=== PATIENT | female | born 1930 | race Caucasian/White ===

== ENCOUNTER 2017-02-13 20:22 | Inpatient (IN) | payer MEDICARE ==
[~2017-02-13] VITALS: Ht 152.4 cm; Wt 46.4 kg
[~2017-02-13 20:22] MED LIST: ACET650T50 PO; ALBU8.5H4 IH; ASPI-973 PO; CARB1TAB37 PO; Cyanocobalamin PO; LORA0.5T PO; MOME17SP NS; PRAM0.252 PO; SERT25TA2 PO; [UNRECOGNIZED DRUG - CODE] PO
[2017-02-13 20:31] VITALS: BP 167/63; PULSE 73; RESP 34; O2SAT 100
--- NOTE | 2017-02-13 20:38 | ED.REPORT ---
HPI-Syncope Date of Service Feb 13, 2017 ED Provider: Jose Obrien MD Pt is an 87 y.o. female with a hx of Parkinson's, PE, and possible TIA who presents to the ED via EMS after a near syncopal episode prior to arrival. Upon arrival to the ED pt states that her SOB is worse than normal. She states that she has had SOB for 3 years and has has "felt bad for years", however she states that her SOB is markedly worse tonight.. Per EMS pt was administered 0.5mg Atropine en route her heart rate in the 40s, which subsequently responded. Pt is an extremely poor historian and provides only a vague history - I cannot get her to pin down on any turgor details regarding this near syncopal event, she appears quite dyspneic but even timing or dyspnea is difficulte Nursing Notes Stated Complaint: SYNCOPE EPISODE Chief Complaint: Respiratory Complaints Nursing Notes Reviewed: Yes (Moovly, YouMail not reconciled) Allergies: Coded Allergies: No Known Drug Allergies (Verified Allergy, Unknown, 06/11/16) Uncoded Allergies: MEDICAL DYE (Adverse Reaction, Severe, Dizziness, 05/12/14) States allergic to "medical dye" but denies allergy to iodine Scheduled ([Cyanocobalamin]) 500 MCG TABLET 1,000 MCG PO DAILY Aspirin (Aspirin) 81 Mg Tablet.dr 81 MG PO DAILY Carbidopa/Levodopa 10-100 mg (Carbidopa/Levodopa 10-100 mg) 1 Ea Tab 2 EA PO TID Carbidopa/Levodopa ER 50-200 mg (Carbidopa/Levodopa ER 50-200 mg) 1 Each Tablet.er 1 EACH PO HS Lorazepam (Lorazepam) 0.5 Mg Tablet 0.25 MG PO HS Mometasone Furoate (Nasonex) 17 Gm [place].pump 1 SPRAY NS DAILY Pramipexole Dihydrochloride (Mirapex) 0.25 Mg Tablet 0.25 MG PO HS Sertraline HCl (Zoloft) 25 Mg Tablet 25 MG PO DAILY Scheduled PRN Acetaminophen (Acetaminophen) 650 Mg Tablet.er 650 MG PO Q4 PRN PRN For Pain Albuterol HFA (Albuterol HFA) 8.5 Gm Hfa.aer.ad 1 PUFF IH Q4 PRN PRN shortness of breath General Time Seen by Provider: 20:28 Chief Complaint Almost passed out Syncope Description: Single episode Hx Obtained From: Patient, EMS Unable to Obtain Hx: Patient condition Arrived By: Ambulance Onset Occurred: Just prior to arrival Past Medical History Past Medical History Notes: PCP: Dr. Villa Last admitted October 2014 Past Medical History 1. Parkinson's disease 2. Hx of BL Pulmonary Embolism 2008, showing elective surgery-no longer on warfarin 3. Anxiety 4. Hx of generalized weakness 5. Orthostatic hypotension 3 possible TIA in March 2014 Reports: Transient ischemic attack Past Surgical History Hiatal Hernia Repair 2008 Cataract surgery Family History Noncontributory Smoking History Former Smoker Social History Alcohol Use: Denies alcohol use Drug Use: Denies drug use Other Social History: Lives alone, Local resident Ambulatory Status Independent Review of Systems Unable to Obtain ROS Patient condition Constitutional: Reports: Chills, Fever Respiratory: Reports: Shortness of breath Neurologic: Reports: Syncope (Near) Complete sys rev & neg: except as marked. Physical Exam Initial Vital Signs Vital Signs (First) Date Time Temp Pulse Resp B/P Pulse Ox O2 Delivery O2 Flow Rate FiO2 02/13/17 20:31 36.4 73 34 167/63 100 Nasal Cannula 2 Initial VS: Reviewed, Unavailable (no vitals on chart) Head / Eyes: Atraumatic, Normocephalic, PERRL Upper Extremities: Vascular intact, Neuro intact Skin: Warm, Dry, No cyanosis Psychiatric: Mood/affect normal, Behavior normal, Normal thought content General/Constitutional: Awake, Alert, Well hydrated, Not toxic appearing Appearance / Presentation: Positive: Cachectic, Frail Pt is extremely poor historian Respiratory / Chest: Atraumatic, Breath sounds NL, Breath sounds = bilat, No respiratory distress Tachypneic Cardiovascular: Heart rate NL, Regular rhythm, Heart sounds NL Heart Rate / Rhythm: Negative: Bradycardia (administered 0.5 Atropin in field) Lower Extremity / Pelvis / MS: Atraumatic, Neurologic intact, Vascular intact Cachetic extremities Neurologic: Speech NL Globally weak Abdomen: Atraumatic, Soft, Non-tender, No distention Interpretation & Diagnostics Lab Results Interpretation Result Diagram: 02/13/17201902/13/172019 Test 02/13/17 20:20 02/13/17 20:55 White Blood Count 5.9th/mm3 (3.8-10.1) Red Blood Count 4.25mil/mm3 (3.90-5.20) Hemoglobin 13.0g/dL (12.0-15.6) Hematocrit 40.9% (35.0-46.0) Mean Corpuscular Volume 96.2fL (81-100) Mean Corpuscular Hemoglobin 30.6pg (27.0-35.0) Mean Corpuscular Hemoglobin Concent 31.8% (32.0-37.0) Red Cell Distribution Width 12.1% (12.3-15.4) Platelet Count 283bil/L (150-400) Neutrophils (%) (Auto) 75.0% (40-74) Lymphocytes (%) (Auto) 13.7% (14-46) Monocytes (%) (Auto) 9.9% (4-12) Eosinophils (%) (Auto) 1.0% (0-5) Basophils (%) (Auto) 0.2% (0-3) Hold Purple Top Tube Received (Received) Prothrombin Time 11.4sec (8.1-12.5) Prothromb Time International Ratio 1.06ratio D-Dimer 2.40mg/L FEU (<0.50) Hold Blue Top Tube Received (Received) Sodium Level 143mEq/L (134-144) Potassium Level 3.4mEq/L (3.5-5.2) Chloride Level 103mEq/L (97-108) Carbon Dioxide Level 26mmol/L (18-29) Blood Urea Nitrogen 17mg/dL (8-27) Creatinine 0.80mg/dL (0.57-1.00) Estimat Glomerular Filtration Rate 98mL/min (>59) Glucose Level 130mg/dL (60-99) Calcium Level 9.6mg/dL (8.5-10.1) Total Bilirubin 0.5mg/dL (0.0-1.2) Aspartate Amino Transf (AST/SGOT) 13U/L (0-50) Alanine Aminotransferase (ALT/SGPT) < 5U/L (0-32) Alkaline Phosphatase 90U/L (25-165) Troponin T < 0.010ug/L (0.0-0.011) Pro-B-Type Natriuretic Peptide 860.0pg/mL (0-738) Total Protein 7.3g/dL (6.4-8.4) Albumin 4.4g/dL (3.4-5.0) Hold [place] Top Tube Received (Received) Lactic Acid Level 1.4mmol/L (0.4-2.0) Lab Results Interpretation: CBC normal CMP normal D-dimer elevated Troponin #1 negative BNP mildly elevated Lactic acid normal ECG Interpretation ECG Interpretation: Received Atropin in field QTC of 507 (QTC of 450 on prior ECG, 06/11/16) Left ventricular hypertorphy, unchanged from prior Time: 20:49 Interpreted by: ED physician Normal ECG Interpretation: Normal rate (80), Normal sinus rhythm ABG Interpretation Exam Performed by: [facility] ABG Findings: Normal blood gas, Oxygen normal, O2 saturation normal, CO2 normal, Bicarbonate normal X-Ray Chest Interpretation Chest Xray Interpretation: IMPRESSION: No acute cardiopulmonary disease process. Dictated by: Lubna Dodd MD, PhD on 02/13/2017 at 21:08 Approved by: Lubna Dodd MD, PhD on 02/13/2017 at 21:08 CT Chest Interpretation IMPRESSION: No evidence for PE Cardiomegaly with prominence of the upper lobe and central pulmonary veins and bilateral pleural effusions. In the proper clinical setting pulmonary venous hypertension should be considered. Radiologist: Alex Watson MD Re-Eval/Medical Decision Med Decision/Clinical Course This is an 87-year-old female presents with some sort of complaint about a near syncopal episode. The patient is an extremely difficult historian and I have a very hard time sorting out what happened. The patient appears visibly tachypnea , visibly dyspneic-and, take matters often answers questions in a timeframe it makes it unclear for the relevant to today's presentation. Apparently she has had some shortness of breath for 3 years, beyond that I cannot tell if the dyspnea and tachypnea that she seems to be experiencing tonight is new and/or different. She cannot tell me anything at all about the syncopal episode, what was going on, whether not she had any other symptoms-making it very difficult. Apparently for EMS she was bradycardic in the 40s and received a dose of atropine, and is now in a sinus rhythm in the 80s. I have not seen a prehospital rhythm strip or EKG. I am told it was sinus. The patient has a med list printed up, he is old from a year or 2 ago-and I cannot get from her whether or not he is current, but I do not see any beta susana agents on it. She was afebrile, but quite tachypneic in the high 20s. She appears short of breath and very fatigued. She is cachectic and medically frail. She apparently does have Parkinson's which is chronic. Lungs however are clear, she is not tachycardic or bradycardic but has a normal heart rate during her ED course. No dysrhythmias were evident during her ED evaluation. Her abdomen soft nontender, there is no JVD, and no leg edema. An EKG demonstrates a normal sinus rhythm, but is notable for mild QTC prolongation and LVH. Chest x-ray is negative for acute disease. A venous blood gas revealed a normal pH, a normal pH and bicarbonate-with no evidence of respiratory failure. Records indicate she has a previous history of the following surgery, and that is no longer on anticoagulation. A d-dimer was obtained and is elevated, so CT angios was performed-but is negative for PE. Her are scattered groundglass densities, as well as prominence of the central upper lobe pulmonary veins with the radiologist concerned about pulmonary venous hypertension as a possible consideration. There trace pleural effusions. At this point I have a difficult patient with an unclear event, with requiring atropine by EMS, who presents tachypneic but with no further dysrhythmias, ever whom definitive pathology has not yet been identified - what may be pulmonary venous hypertension and chronic lung disease, but is not a candidate for safe discharge to home in this setting. She has incidental QT prolongation, but from what I can tell he cannot really make that translate into tonight's presentation. The plan is observation admission for continued monitoring and evaluation. The case is discussed with the hospitalist Source of Hx: Old records Re-Evaluation/Progress : Time of Eval: 23:20 Re-Evaluation/Progress Note: Pt is still complaining of SOB. O2 sat 100% Consultation : Referral / Consult Name: Yohannes Ledesma MD Consulted With: Hospitalist Call Returned at: 22:48 [place]: Will see patient, Agrees with eval, Agrees with plan, Accepts admit Note: Discussed pt condition, accepts admit. Differential Diagnosis: Positive: Dysrhythmia (bradycardia for EMS), Negative: Abdominal aortic aneurysm, Alcohol abuse, Anemia, Electrolyte disorder, Head trauma, Hypoglycemia, Palpitations, Pneumothorax, Prolonged QT syndrome, Pulmonary embolus, Sepsis, Subarachnoid hemorrhage, Vasovagal syncope Counseled Regarding: Diagnosis, Need for admission Discharge & Departure Impression: Primary Impression: Shortness of breath Additional Impressions: Near syncope Bradycardia QT prolongation Disposition: ADMITTED TO HOSPITAL Discharge Condition All VS Reviewed: Yes Condition: No Change Referrals: Domo Villa MD (PCP) Mundo Attestation Portions of this note were transcribed by Katy Seymour. I, Dr. Obrien personally performed the history, physical exam and medical decision-making; I reviewed and confirmed the accuracy of the information in the transcribed note. Signed by: Mundo Viera, 02/13/17 and 4101 copies to: Domo Villa MD, Matthew F MD Feb 13, 2017 20:37 KATY SEYMOUR Feb 13, 2017 20:45
[2017-02-13] MEDS ORDERED: Ipratropium 0.02% 0.5 mg/2.5 mL Inhalation Solution NEB ONE (20:50)
[2017-02-13] MEDS ORDERED: Albuterol 2.5 mg/3 mL Inhalation Solution NEB ONE (20:50)
[2017-02-13 20:57] LABS: BASOPHILS % (AUTO) 0.2 % (0-3); MONOCYTES % (AUTO) 9.9 % (4-12); Mean Corpuscular Hemoglobin 30.6 pg (27.0-35.0); Mean Corpuscular Volume 96.2 fL (81-100); Platelet Count 283 bil/L (150-400)
[2017-02-13 21:02] LABS: D-Dimer 2.4 mg/L FEU (<0.50); INR 1.06 ratio
[2017-02-13 21:04] VITALS: PULSE 61; RESP 26; O2SAT 100
--- NOTE | 2017-02-13 21:10 | DRSVH ---
PROCEDURE: X-RAY CHEST ONE VIEW, PORTABLE ([id number]) INDICATIONS: SOB TECHNIQUE: One view of the chest was acquired. COMPARISON: [facility], CR, XR CHEST 2VW, 06/11/2016, 15:12. FINDINGS: Surgical changes and devices: None. Lungs and pleura: No pleural effusions or pneumothorax. Lungs are clear of acute opacities. Inters titial prominence in the lungs is stable compared to prior examination. Mediastinum: Mediastinal contours appear normal. Heart size is normal. Bones and chest wall: No suspicious bony lesions. Overlying soft tissues appear unremarkable. IMPRESSION: No acute cardiopulmonary disease process. Dictated by: Lubna Dodd MD, PhD on 02/13/2017 at 21:08 Approved by: Lubna Dodd MD, PhD on 02/13/2017 at 21:08
[2017-02-13 21:15] LABS: TROPONIN T < 0.010 ug/L (0.0-0.011)
[2017-02-13] MEDS ORDERED: Heparin 5,000 Unit/mL Inj IVPUSH ONE (21:15)
[2017-02-13] MEDS ORDERED: Heparin 25K Unit/500mL 0.45 NS 25,000 UNIT in IV Premix 1 EACH IV ONE (21:15)
--- NOTE | 2017-02-13 21:19 | ABG ---
DateTimeAnalyzed 21:14:00 -_ pH ____7.431 - pCO2 ___45.4__ -mmHg pO2 ___54.4__ -mmHg HCO3- ___29.6__ -mmol/L ABE ____5.0__ -mmol/L tHb ___13.3__ -g/dL O2Hb ___87.1__ -% COHb ____1.6__ -% MetHb ____0.8__ -% sO2 ___89.2__ -% FIO2 ___28.0__ -% Drawn By JH - Date/Time Notified____ 21:18:00 -_ Notified Whom DR SIXTO - B 752 -mmHg tO2 ___16.3__ -Vol% Josemanuel test N/A -
[2017-02-13] MEDS ORDERED: 0.9% Sodium Chloride 1,000 ML IV SCH (23:09)
[2017-02-13] MEDS ORDERED: Ondansetron 2 mg/mL 2 mL Inj IVPUSH PRN (23:10)
[2017-02-13] MEDS ORDERED: Alum-Mag Hydrox-Simeth 30 mL Suspension PO PRN (23:10)
[2017-02-13 23:43] VITALS: BP 131/64; PULSE 69; RESP 28; O2SAT 100
[2017-02-14] VITALS (11 sets, daily range): BP systolic 134–196; BP diastolic 57–77; PULSE 53–74; RESP 16–26; O2SAT 96–99
[2017-02-14] MEDS: Heparin 5,000 Unit/mL Inj SUBQ SCH ×3 (00:30→17:12)
[2017-02-14] MEDS: LORazepam 0.5 mg Tablet PO SCH ×2 (02:07→21:01)
[2017-02-14 02:44] LABS: APPEARANCE,URINE HAZY (CLEAR,HAZY); COLOR,URINE YELLOW (YELLOW); OCCULT BLOOD,URINE TRACE (NEGATIVE); PH,URINE >1.050 (5.0-8.0); UROBILINOGEN,URINE NORMAL (NORMAL)
--- NOTE | 2017-02-14 02:53 | PCM.HPMED ---
Subjective Date of Service Feb 14, 2017 Primary Provider: Admitting Physician: Yohannes Ledesma MD Primary Care Physician: Domo Villa MD Attending Physician: Yohannes Ledesma MD Admit Status: From the Emergency Department Chief Complaint: Dyspnea, Bradycardia History of Present Illness: Very pleasant 87yo woman with Parkinson's Disease, problems with SOL since a hernia operation 7 years ago, and a fall onto her back 4 days ago presents with increased SOB and weakness. She was found by EMS to be bradycardic in the 30s and 40s and was given Atropine in the field. Her heart rate has improved to 61- 74 and she has weaned off the oxygen she needed initially in the ER, satting 98 % on room air now. She says she has had dry heaves for a week, feels tight at the base of her throat, some mild dysphagia and a slight sore throat. At home she was having some mild chest pressure but that resolved before getting to the ER. Review of Systems: complete ROS is negative except as noted above in the HPI. Allergies Coded Allergies: No Known Drug Allergies (Verified Allergy, Unknown, 02/14/17) Uncoded Allergies: MEDICAL DYE (Adverse Reaction, Severe, Dizziness, "I didn't feel good", ) States allergic to "medical dye" but denies allergy to iodine Home Medications Acetaminophen 650mg PRN Albuterol Inhaler 8.5gm PRN Aspirin 81mg PO daily Carbidopa/Levodopa 10-100mg 2 tabs PO TID Carbidopa/Lebodopa ER 50-200mg PO qhs Lorazepam 0.5mg PO qhs Pramipexole Dihydrochloride 0.25mg PO qhs Sertraline 25mg PO daily Cyanocobalamin 1000mcg PO daily PMH Parkinson's disease, Scarlet Fever Depression Surgical History Hiatal Hernia repair Carpal Tunnel release Lipoma removal from back Family History Father of old age at 85 as far as patient knows Mother of pneumonia at age 76 Social History Hx Alcohol Use: No Hx Substance Use: No Hx Tobacco Use: No Smoking Status: Former Smoker Living Arrangement: Alone Exam Vital Signs Vital Sign - Last Date Time Temp Pulse Resp B/P Pulse Ox O2 Delivery O2 Flow Rate FiO2 02/14/17 00:23 36.6 66 25 147/61 98 Room Air 02/13/17 23:43 2 Exam General: Alert, Oriented X3, Cooperative, mild distress Head: Normocephalic, atraumatic Eyes: PERRLA, EOMI. ENT: Mucous Membranes Moist/[place] Chest & Lungs: Clear to auscultation bilaterally with no crackles, wheezes, or rhonchi. Cardiovascular: Regular Rate/Rhythm, Normal S1, Normal S2, No Murmurs/Rubs/ Gallops Abdomen: Non-tender, Non-distended, No masses, Normoactive bowel tones, Soft Extremities: No cyanosis/clubbing/edema bilaterally. Mild swelling and ecchymosis of the entire left hand Spine: extreme kyphosis of the thoracic spine Neurological: Grossly Neurologically Intact, Cranial Nerves 2-12 Intact, Normal Speech, Strength Normal 4/4 ext, Sensation Intact, Cerebellar Function nl Finger-Nose, Cerebellar Function nl Heel-Rae, Reflexes Normal Lab and Diagnostics Labs Laboratory Tests Test 02/13/17 20:20 02/13/17 20:55 02/14/17 02:19 White Blood Count 5.9th/mm3 (3.8-10.1) Red Blood Count 4.25mil/mm3 (3.90-5.20) Hemoglobin 13.0g/dL (12.0-15.6) Hematocrit 40.9% (35.0-46.0) Mean Corpuscular Volume 96.2fL (81-100) Mean Corpuscular Hemoglobin 30.6pg (27.0-35.0) Mean Corpuscular Hemoglobin Concent 31.8% (32.0-37.0) Red Cell Distribution Width 12.1% (12.3-15.4) Platelet Count 283bil/L (150-400) Neutrophils (%) (Auto) 75.0% (40-74) Lymphocytes (%) (Auto) 13.7% (14-46) Monocytes (%) (Auto) 9.9% (4-12) Eosinophils (%) (Auto) 1.0% (0-5) Basophils (%) (Auto) 0.2% (0-3) Hold Purple Top Tube Received (Received) Prothrombin Time 11.4sec (8.1-12.5) Prothromb Time International Ratio 1.06ratio D-Dimer 2.40mg/L FEU (<0.50) Hold Blue Top Tube Received (Received) Sodium Level 143mEq/L (134-144) Potassium Level 3.4mEq/L (3.5-5.2) Chloride Level 103mEq/L (97-108) Carbon Dioxide Level 26mmol/L (18-29) Blood Urea Nitrogen 17mg/dL (8-27) Creatinine 0.80mg/dL (0.57-1.00) Estimat Glomerular Filtration Rate 98mL/min (>59) Glucose Level 130mg/dL (60-99) Calcium Level 9.6mg/dL (8.5-10.1) Total Bilirubin 0.5mg/dL (0.0-1.2) Aspartate Amino Transf (AST/SGOT) 13U/L (0-50) Alanine Aminotransferase (ALT/SGPT) < 5U/L (0-32) Alkaline Phosphatase 90U/L (25-165) Troponin T < 0.010ug/L (0.0-0.011) Pro-B-Type Natriuretic Peptide 860.0pg/mL (0-738) Total Protein 7.3g/dL (6.4-8.4) Albumin 4.4g/dL (3.4-5.0) Hold [place] Top Tube Received (Received) Lactic Acid Level 1.4mmol/L (0.4-2.0) Urine Color Yellow (YELLOW) Urine Appearance Hazy (CLEAR,HAZY) Urine pH >1.050 (5.0-8.0) Urine Specific [place] N (1.003-1.035) Urine Protein Negativemg/dL (NEG,TRACE) Urine Glucose (UA) Negativemg/dL (NEGATIVE) Urine Ketones 15mg/dL (NEGATIVE) Urine Occult Blood Trace (NEGATIVE) Urine Nitrite Positive (NEGATIVE) Urine Bilirubin Negative (NEGATIVE) Urine Urobilinogen Normalmg/dL (NORMAL) Urine Leukocyte Esterase Negative (NEGATIVE) Urine RBC 3-10/hpf (0-2) Urine WBC 0-5/hpf (0-5) Urine Epithelial Cells Few/hpf (NONE-MOD) Urine Crystals None seen (NONE SEEN) Urine Bacteria Many/hpf (NONE-FEW) Urine Hyaline Casts None/lpf (NONE) Urine Granular Casts None seen (NONE SEEN) Urine Waxy Casts None seen (NONE SEEN) Urine Red Blood Cell Casts None seen (NONE SEEN) Urine White Blood Cell Casts None seen (NONE SEEN) Urine Mucus None seen (None Seen) Urine Trichomonas None seen (NONE SEEN) Urine Yeast None (NONE SEEN) Urine Culture Reflexed Indicated Microbiology 02/13/17 Blood Culture, Received Pending 02/14/17 Urine Culture, Received Pending Result Diagram: 02/13/17201902/13/172019 Microbiology blood cx x2 and urine cx pending X-Rays, CTs and MRIs CXR with no acute cardiopulmonary findings CTA chest negative for PE 12-lead ECG ECG Interpretation: Received Atropine in field NSR with rate of 80 QTC of 507 (QTC of 450 on prior ECG, 06/11/16) Left ventricular hypertrophy, unchanged from prior Assessment & Plan Very pleasant 87yo woman with Parkinson's Disease, problems with SOL since a hernia operation 7 years ago, and a fall onto her back 4 days ago presents with increased SOB at rest and weakness that worsened enough today to call 911. She was found by EMS to be bradycardic in the 30s and 40s and was given Atropine in the field. Her heart rate has improved to 61-74 and she has weaned off the oxygen she needed initially in the ER, satting 98% on room air now. She says she has had dry heaves for a week, feels tight at the base of her throat, some mild dysphagia and a slight sore throat. At home she was having some mild chest pressure but that resolved before getting to the ER. 1. Acute Hypoxic Respiratory Failure, POA, improved. Likely secondary to bradycardia, improved with one dose of Atropine. -remote telemetry -Consult to cardiology placed for morning, please contact Dr Abreu -Oxygen available as needed for O2 sat less than 92% 2. Bradycardia, present in the field, resolved by admission, secondary to vasovagal response from repetitive dry heaving vs sick sinus syndrome. Thyroid disease also considered -ECHO ordered. -Cardiology consult -checking TSH 2. Prolonged QT interval, POA, worsened from previous EKG in May 2016 with QTc now 507 -Avoid QT prolonging drugs, no Zofran 3. Parkinson's Disease, POA, stable -Patient's sinemet is not on our formulary so we are substituting as slightly high dose: 10-100mg increased to 12.5-125mg -Continue other home medications: Carbidopa-Levodopa 50-200mg PO qhs and Mirapex 0.25mg PO qhs 4. Depression, POA, stable -continue Sertraline 25mg PO daily 5. Vitamin B12 deficiency, POA, stable -continue supplementation at 1000mcg daily 6. Mild elevation of BNP, POA, level is 860, attributed to heart strain from bradycardia and dyspnea 7. Hypokalemia, POA, mild at 3.4 -remote telemetry -initiate K/Mg repletion protocol PRN medications available for heartburn, constipation: Maalox, Senna, Miralax Pain Evaluation: Adequate Pain Control GI Prophylaxis: Not indicated VTE Prophylaxis: Sub-Q Heparin (Unfractionated) Resuscitation Status: DNR/DNI:Do Not Resuscitate/Intubate Limited Interventions: Medications and IV Fluid Attending Statement The patient was seen and examined together with Dr. David on 02/13 and I agree with the history, exam and plan as outlined in the note above. Dean David DO Feb 14, 2017 02:53 Yohannes Ledesma MD Feb 14, 2017 04:07
[2017-02-14] MEDS: Albuterol 2.5 mg/3 mL Inhalation Solution NEB PRN (03:11)
--- NOTE | 2017-02-14 04:16 | NUR ---
Admit note: Pt arrived to floor via gurney, slide transfer to bed. Pt is alert and oriented x3, speech is soft and difficult to understand at times; does have an accent. Upon arrival stated breathing seems "better"; RA 98%. Pt stated calling for medics because she "almost passed out", states she has been short of breath for years. Tele SR 70s. Pt is shaky, unsteady with transfers, bed alarm activated for safety. Assisted up to the BSC. Woke at 0300 reporting shortness of breath, RA 100%. RT was to the room for a breathing treatment, pt again able to fall asleep after. Oriented to room and call light, instructed to use call light for needs.
[2017-02-14] MEDS ORDERED: ACET325T51 PO (06:13)
--- NOTE | 2017-02-14 06:38 | NUR ---
Med rec: Only partial med list completed using pt recall. Pt uses [facility] in [place]. Fax was sent this morning for a complete med list.
[2017-02-14] MEDS ORDERED: FLUT16SP NASAL (07:00)
[2017-02-14] MEDS ORDERED: DONE10TA42 PO (07:01)
[2017-02-14 07:05] LABS: Magnesium 1.9 mg/dL (1.6-2.6)
--- NOTE | 2017-02-14 08:37 | DRSVH ---
PROCEDURE: CT ANGIO CHEST PULMONARY EMBOLISM ([id number]) INDICATIONS: SOB TECHNIQUE: After the administration of intravenous contrast, 2 mm thick sections acquired from the pulmonary api handy to the posterior costophrenic angles. 3-dimensional maximum intensity projection (MIP) coronal a nd sagittal reformats were then acquired through the thorax. For radiation dose reduction, the follo wing was used: automated exposure control, adjustment of mA and/or kV according to patient size. COMPARISON: [facility], CT, CT ANGIO CHEST PE, 06/11/2016, 16:08. FINDINGS: Image quality: Excellent. Pulmonary arteries: Pulmonary arteries are normal in size, and demonstrate no intraluminal filling d efects to suggest central pulmonary embolism. Lungs and pleura: Stable 4 mm left upper lobe nodule compared to the 06/10/14. No pleural effusions or pneumothorax. Central and peripheral airways are patent. Mediastinum: Heart size is normal, without pericardial effusion. No mediastinal or hilar adenopathy . The ascending thoracic aorta measures 43 mm in transverse dimension, unchanged. Esophagus is normal in caliber, with small hiatal hernia. Bones and chest wall: No suspicious bony lesions. Ribs and thoracic spine appear intact throughout. Thyroid gland is unremarkable. No axillary or supraclavicular adenopathy. Abdomen: Partially visualized left renal cyst is noted. Visualized upper abdominal solid organs appe ar normal in the early arterial phase of enhancement. IMPRESSION: 1. No evidence of pulmonary embolism. 2. No effusions or consolidations. 3. 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 Dictated by: Venita Barrientos M.D. on 02/14/2017 at 8:32 Approved by: Venita Barrientos M.D. on 02/14/2017 at 8:35
[2017-02-14] MEDS: Carbidopa-Levodopa 25-250 mg Tablet PO SCH ×3 (09:26→20:02)
[2017-02-14] MEDS: 0.9% NaCl + KCl 20 mEq/L 1,000 ML IV SCH ×2 (09:30→22:20)
--- NOTE | 2017-02-14 10:44 | DRSVH ---
[facility] [address] [place] [address] Echocardiogram Report Name: CHICHO RINALDI EStudy Date : 02/14/2017 Height: 60 in Hospital Exam Location: [facility] Weight: 102 lb Gender: Female BSA: 1.4 m2 : 1930 Age: 87 yrs BP: 148/77 mmHg Reason For Study: BRADYCARDIA Ordering Physician: HOSPITALIST [facility] Performed By: Radha Vanegas Referring Physician: Dr. Domo Villa Interpretation Summary The left ventricle is normal in size, wall thickness, and systolic function without any focal wall motion abnormalities. The ejection fraction is estimated to be 55-60%. The left atrium is severely dilated. The mitral valve leaflets appear mildly thickened, but open well. There is mild mitral regurgitation. There is moderate aortic regurgitation. There is mild tricuspid regurgitation. Procedure: A two-dimensional transthoracic echocardiogram with color flow and Doppler was performed. The study quality was technically adequate. Comparison is made with the echocardiogram of 03-24-2014. The patient was in sinus during the exam. The heart rate ranged between 52-68 bpm during the study. Left Ventricle: The left ventricle is normal in size, wall thickness, and systolic function without any focal wall motion abnormalities. The ejection fraction is estimated to be 55-60%. Spectral Doppler of the mitral valve shows a normal E/A wave ratio. Right Ventricle: The right ventricle is normal in size and function. Atria: The left atrium is severely dilated. Right atrial size is normal. There is no Doppler evidence for an interatrial shunt. Mitral Valve: The mitral valve leaflets appear mildly thickened, but open well. There is mild mitral annular calcification. There is mild mitral regurgitation. Aortic Valve: The aortic valve is trileaflet. The aortic valve is mildly calcified. The aortic valve opens well. There is moderate aortic regurgitation. Compared to the prior echo study, there has been an increase in the severity of aortic regurgitation. Tricuspid Valve: The tricuspid valve leaflets are thin and pliable. There is mild tricuspid regurgitation. Pulmonic Valve: The pulmonic valve is not well seen, but is grossly normal. There is no pulmonic valvular regurgitation. Great Vessels: The aortic root is normal size. The ascending aorta could not be visualized. The pulmonary artery is normal size. The IVC is dilated (diameter is greater than 2.1 cm) and it collapses less than 50% with a sniff. This suggests a high right atrial pressure of 15 mm Hg. Pericardium/ Pleura There is no pericardial effusion. There is no pleural effusion. MMode/2D Measurements & Calculations LVIDd: 3.8 cm LA dimension: 5.1 cm RA long axis LVOT diam: 2.0 cm LVIDs: 2.3 cm AoV Opening FS: 40.2 % LA A2 area: 24.2 cm RA area IVSd: 0.88 cm LA A4 area: 22.2 cm Ao root diam LVPWd: 0.88 cm LA length (vol) : 16.7 cm RA vol Ao Arch Diam (Prox LA vol: 72.3 ml : 43.0 ml Trans): 3.1 cm LA vol index RA : 30.7 mm/ : 51.6 ml/m2 RVDd major : 6.4 cm LV palacio. diameter/BSA LV sys. diameter/BSA RVD1 (basal) RVD2 (mid): 3.2 cm (cm/m^2): 2.7 (cm/m^2): 1.6 Doppler Measurements & Calculations Ao V2 max MV E max esteban MV E/A: 0.96 TR max esteban : 138.1 cm/sec : 69.3 cm/sec Med Peak E' Esteban : 250.4 cm/sec Ao max P.6 mmHg MV A max esteban TR max PG Ao mean P.2 mmHg : 72.4 cm/sec E/E' med: 8.7 : 25.1 mmHg LVOT Max Esteban MV P1/2t: 66.2 msec Lat Peak E' Esteban PA V2 max : 128.4 cm/sec : 84.7 cm/sec FREEMAN(I,D): 2.9 cm E/E' lat: 7.9 PA mean PG sev ratio: 0.98 E/e' average AI P1/2t: 602.6 msec PA Accel Time AI dec slope Pulm A Revs Dur : 0.13 sec : 248.3 cm/s2c MV A dur : 0.14 sec MV P1/2t max esteban Ao V2 mean LV V1 max PG PA V2 mean : 82.5 cm/sec : 60.0 cm/sec MVA(P1/2t): 3.3 cm2 Ao V2 VTI: 30.2 cm LV V1 VTI FREEMAN(V,D): 2.8 cm2 : 29.4 cm FREEMAN indexed to BSA Pulm A Revs Dur - MV (cm^2/m^2): 2.1 A Dur: -0.02 msec Electronically signed by: Jona Abreu on Reading Physician:02/14/2017 10:43 AM
[2017-02-14] MEDS ORDERED: Ondansetron 2 mg/mL 2 mL Inj IVPUSH PRN (14:10)
--- NOTE | 2017-02-14 14:17 | NUR ---
Mobility Pt has denied any pain today. Pt slightly nauseated this afternoon, but no emesis. Pt medicated with 4mg IV Zofran. Pt able to get up and transfer to chair today X2. Pt calm and coop with care, using call light approp for all needs.
--- NOTE | 2017-02-14 16:00 | CONS ---
[address] [address] CONSULTATION REPORT PATIENT: CHICHO RINALDI : 1930 MR#: [id number] ADMIT: 02/13/2017 JOB ID: [id number] DATE OF SERVICE: CHIEF COMPLAINT: Bradycardia, This 87-year-old female with history of Parkinson's presented to the emergency department following a near-syncopal episode prior to arrival. The patient states she was short of breath. The EMS found her to be bradycardic. They gave her IV atropine. I have looked at the EMS records. It shows a heart rate of 30. It was in the high 40s and low 50s from the rhythm strips that I have. The patient states that she has had similar complaints for years. Review of her [facility] chart seems to indicate that she has had multiple admissions, primarily with similar complaints. She suffers from anxiety, shortness of breath, and has come in with complaints of bradycardia. The patient, I must mention, is a very vague historian. This is compounded by the fact that her speech is slow and soft. She does not remember any details about her episode of lightheadedness or near-syncope. She states she had some sore throat. She also had stress discomfort. This was upon asking a leading question. As far as her chart goes, I went back to 2012, and she has had previous admissions with bradycardia, generalized weakness, and anxiety, along with shortness of breath. PAST MEDICAL HISTORY: Significant for Parkinson's. Remote history of pulmonary embolus. Depression. Hiatal hernia. PERSONAL HISTORY: She is a nonsmoker, nondrinker. She lives alone. 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 At this point, she feels she needs help at home Her family lives in [place] and in [place]. ALLERGIES: None. MEDICATIONS AT HOME: 1. Acetaminophen. 2. Albuterol. 3. Aspirin. 4. Levodopa/carbidopa combination. 5. Lorazepam. 6. Mirapex 0.25 h.s. 7. Zoloft 25 daily. 8. Vitamin B12. COMPREHENSIVE REVIEW OF SYSTEMS: Was done and is per HPI. The pertinent negatives are no GI, bleeding. No recent strokes or TIAs. LAB DATA: Her admission potassium was 3.4. Creatinine is normal. Sugar was mildly elevated at 130 hemoglobin is 13. ASSESSMENT AND PLAN: This lady presents with bradycardia and presumably near-syncope secondary to autonomic dysfunction, which often accompanies Parkinson's. At this point, I have seen no indication for a pacemaker. Her telemetry has been unremarkable. Her heart rate has been in the 50s and 60s. Her blood pressure has been well controlled. In fact, her blood pressure was high, presumably because of anxiety since it came down by itself from 190 systolic to 160 systolic. Her left ventricular function is preserved and her last stress test did not show any evidence of ischemia. At this point, watchful observation should be adequate. 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 A Social Work consultation is appropriate. I thank you for letting me be involved in her care.
--- NOTE | 2017-02-14 16:17 | NUR ---
Social Work: Initial Assessment Data & Assessment: See initial assessment. EMR reviewed. Patient is a 87 year old female that admitted with near syncope SOB and bradycardia per H&P. Team Facilitator met with patient at bedside to complete initial assessment, SW role reviewed and discharge planning discussed. Patient confirmed that her NOK/DPOA is her brother Jose Baird [phone]. Patient insurance is [employer] and her PCP is Dr. Domo Villa. Patient has no LTC or VA benefits. patient has no re-admit score. Patient lives at home alone and depends on others for transportation. p[atient has a walker, WC and cane. Patient states that she only use her WC when going long distances. Patient has had [facility] in the past an has been to [facility]. Patient states that if HH or SNF is needed she wants [facility] or to go to [facility]. Patient stated that she had [facility] coming into the home prior to admission. SW will continue to follow patient to rule out HH and SNF. Plan: patient will either discharge home with HH or to a SNF facility. SW will continue to follow patient. ' Arik Lerner LMSW, SPENCER Addendum: 02/14/17 at 1626 by ARIK LERNER Amended: Links added.
[2017-02-14] MEDS: Potassium Chloride 20 mEq SR Tablet PO SCH (20:01)
[2017-02-14] MEDS ORDERED: LORazepam 0.5 mg Tablet PO SCH (21:00)
[2017-02-14] MEDS: Carbidopa-Levodopa 50-200 mg ER12 Tablet PO SCH (21:01)
--- NOTE | 2017-02-14 22:56 | PCM.PNMED ---
Subjective Date of Service Feb 14, 2017 Subjective Patient has no new complaints she is resting in bed comfortably. He appears somewhat weak and her speech is somewhat garbled. Exam Vital Signs Vital Sign - Last Date Time Temp Pulse Resp B/P Pulse Ox O2 Delivery O2 Flow Rate FiO2 02/14/17 20:25 36.9 55 26 186/77 96 Room Air 02/13/17 23:43 2 Intake and Output 02/13/17 02/13/17 02/14/17 Cumulative From/Thru 15:00 23:00 07:00 02/13/17 20:31 - 02/14/17 06:41 Intake Total 146 ml 146 ml Output Total 300 ml 300 ml Balance -154 ml -154 ml Intake Oral 50 ml 50 ml IV Total 96 ml 96 ml Output Urine Total 300 ml 300 ml # Bowel Movements 0 0 Exam General: Patient is laying supine in bed in no apparent distress. Speech is somewhat garbled. Patient appears weak. HEENT: Head is atraumatic and normocephalic. Eyes: Pupils are equally round and reactive to light and accommodation. Extraocular muscles are intact. Sclera are white, anicteric. Subconjunctival mucosa is pink. Ears and nose are unremarkable. Oropharynx: There is no mucosal lesions, there is no thrush, there is no pharyngitis. Neck: Is supple, there are no nodes, or masses or tenderness. Chest: Is clear to auscultation and percussion. There are no rales, rhonchi, wheezes or rubs. Heart: Rate is slightly bradycardic, rhythm is regular. There is no new murmur , rub or gallop. Abdomen: Good bowel sounds are present. Abdomen is soft, nontender, no organomegaly or masses were appreciated. Extremities: Are symmetrical and well perfused. There is no edema, there is no cellulitis, no rash. Neurologic: There are no focal neurological deficits. Cranial nerves II through XII are intact. There are no sensory or motor deficits. Psychiatric: Patients mood is calm and she shows no sign of agitation. Genital: Deferred Rectal: Deferred Lab and Diagnostics Result Diagram: 02/13/17201902/14/17 0600 Microbiology blood cx x2 and urine cx pending X-Rays, CTs and MRIs CXR with no acute cardiopulmonary findings CTA chest negative for PE 12-lead ECG ECG Interpretation: Received Atropine in field NSR with rate of 80 QTC of 507 (QTC of 450 on prior ECG, 06/11/16) Left ventricular hypertrophy, unchanged from prior Cardiac Echo Impressions Echocardiogram Report Name: CHICHO RINALDI EStudy Date : 02/14/2017 Height: 60 in Hospital Exam Location: [facility] Weight: 102 lb Gender: Female BSA: 1.4 m2 : 1930 Age: 87 yrs BP: 148/77 mmHg Reason For Study: BRADYCARDIA Ordering Physician: HOSPITALIST [facility] Performed By: Radha Vanegas Referring Physician: Dr. Domo Villa Interpretation Summary The left ventricle is normal in size, wall thickness, and systolic function without any focal wall motion abnormalities. The ejection fraction is estimated to be 55-60%. The left atrium is severely dilated. The mitral valve leaflets appear mildly thickened, but open well. There is mild mitral regurgitation. There is moderate aortic regurgitation. There is mild tricuspid regurgitation. Assessment & Plan The patient is a very pleasant 87yo white female with Parkinson's Disease, problems with dyspnea on exertion since a hernia operation 7 years ago, and a fall onto her back 4 days ago presents with increased SOB at rest and weakness that worsened enough today to call 911. She was found by EMS to be bradycardic in the 30s and 40s and was given Atropine in the field. Her heart rate has improved to 61-74 and she has weaned off the oxygen she needed initially in the ER, satting 98% on room air now. She says she has had dry heaves for a week, feels tight at the base of her throat, some mild dysphagia and a slight sore throat. At home she was having some mild chest pressure but that resolved before getting to the ER. 1. Acute Hypoxic Respiratory Failure, present at the time of admission, improved. Likely secondary to bradycardia, improved with one dose of Atropine in the field by paramedics. -Continue remote telemetry -Consult by cardiology Dr Abreu is appreciated. No pacemaker is recommended at this time. Continue close observation. -Oxygen available as needed for O2 sat less than 92% 2. Bradycardia, present in the field, resolved by admission, secondary to vasovagal response from repetitive dry heaving vs sick sinus syndrome. Thyroid disease also considered -ECHO ordered. -Cardiology consult by appreciated. No pacemaker is recommended at this time. Will continue close monitoring by telemetry. -TSH is normal at 1.030 2. Prolonged QT interval, present at the time of admission, worsened from previous EKG in May 2016 with QTc now 507 -Avoid QT prolonging drugs, Zofran to be used sparingly 3. Parkinson's Disease, present at the time of admission, stable -Patient's Sinemet is not on our formulary so we are substituting as slightly high dose: 10-100mg increased to 12.5-125mg -Continue other home medications: Carbidopa-Levodopa 50-200mg PO qhs and Mirapex 0.25mg PO qhs 4. Depression, present at the time of admission, stable -continue Sertraline 25mg PO daily 5. Vitamin B12 deficiency, present at the time of admission, stable -continue supplementation at 1000mcg daily 6. Mild elevation of BNP, was not at the time of admission, level is 860, attributed to heart strain from bradycardia and dyspnea 7. Hypokalemia, present at the time of admission, mild at 3.4 -remote telemetry -initiate K/Mg repletion protocol PRN medications available for heartburn, constipation: Maalox, Senna, Miralax Disposition: We will continue to monitor closely over the next 24-48 hours. Will ask physical therapy to evaluate and treat patient. Will discuss with social studies department chair need for placement. Pain Evaluation: Adequate Pain Control GI Prophylaxis: Not indicated VTE Prophylaxis: Sub-Q Heparin (Unfractionated) Resuscitation Status: DNR/DNI:Do Not Resuscitate/Intubate Limited Interventions: Medications and IV Fluid Beka Hemphill MD Feb 14, 2017 22:56
[2017-02-15] VITALS (14 sets, daily range): BP systolic 153–182; BP diastolic 66–90; PULSE 47–63; RESP 16–24; O2SAT 94–97
[2017-02-15] MEDS: Heparin 5,000 Unit/mL Inj SUBQ SCH ×3 (00:12→16:58)
[2017-02-15 06:12] LABS: BASOPHILS % (AUTO) 0.7 % (0-3); EOSINOPHILS % (AUTO) 2.5 % (0-5); MONOCYTES % (AUTO) 9.9 % (4-12); Mean Corpuscular Hemoglobin 30.1 pg (27.0-35.0); Mean Corpuscular Volume 96.4 fL (81-100); NEUTROPHILS % (AUTO) 51.8 % (40-74); Platelet Count 241 bil/L (150-400)
[2017-02-15 06:55] LABS: Magnesium 1.9 mg/dL (1.6-2.6); Phosphorus 2.4 mg/dL (2.5-4.9)
[2017-02-15] MEDS: Potassium Chloride 20 mEq SR Tablet PO SCH ×2 (08:22→20:03)
[2017-02-15] MEDS: Carbidopa-Levodopa 25-250 mg Tablet PO SCH ×3 (08:23→19:55)
[2017-02-15] MEDS: cefTRIAXone Inj 2,000 MG in Dextrose 5% Minibag Plus 50 ML IV SCH (10:17)
[2017-02-15] MEDS: Polyethylene Glycol (PEG) 17 Gm Powder PO PRN (10:50)
[2017-02-15] MEDS: 0.9% NaCl + KCl 20 mEq/L 1,000 ML IV SCH (11:00)
--- NOTE | 2017-02-15 13:06 | NUR ---
IV fluid Potassium WNL. Pt. had adequate PO fluid intake and urine output. Lung bases with fine crackles. Dr. Hemphill was made aware and he ordered stop IV fluid, SL IV. Addendum: 02/15/17 at 1320 by IDRIS PATEL RN Dr. Hemphill also made aware of HTN (SBP 160s to 180s with normal DBP). IV fluid was stopped and will continue to monitor BP.
[2017-02-15] MEDS ORDERED: OXYB5TAB PO (14:18)
[2017-02-15] MEDS ORDERED: ALBU8.5H2 INHALATION (14:20)
[2017-02-15] MEDS ORDERED: CYAN500 PO (14:29)
[2017-02-15] MEDS: LORazepam 0.5 mg Tablet PO SCH (20:03)
--- NOTE | 2017-02-15 20:58 | NUR ---
Increasing Mobility P- Pt has had difficulty with balance and mobility secondary to Parkinson's Dx. Pt asked to walk over to the window after transfer to bedside commode. I- Nurse and rehab nursing tech ambulated pt to the window and encouraged pt to continue ambulating into the mak. E- Pt declined walking out in the mak, but was willing to go to the door. Pt tolerated ambulation to door and back to bed with some SOB relieved by rest.
[2017-02-15] MEDS: Carbidopa-Levodopa 50-200 mg ER12 Tablet PO SCH (22:09)
--- NOTE | 2017-02-15 22:34 | PCM.PNMED ---
Subjective Date of Service Feb 15, 2017 Subjective General a bit more alert and responsive today. She has no new complaints. She would like to go home when she is stable, rather than go to a [facility] facility. Exam Vital Signs Vital Sign - Last Date Time Temp Pulse Resp B/P Pulse Ox O2 Delivery O2 Flow Rate FiO2 02/15/17 22:07 61 177/90 02/15/17 21:12 18 94 Room Air 02/15/17 20:18 36.8 02/13/17 23:43 2 Intake and Output 02/14/17 02/14/17 02/15/17 Cumulative From/Thru 15:00 23:00 07:00 02/13/17 20:31 - 02/15/17 06:57 Intake Total 526 ml 936 ml 922 ml 2530 ml Output Total 550 ml 650 ml 1500 ml Balance 526 ml 386 ml 272 ml 1030 ml Intake Oral 680 ml 0 ml 730 ml IV Total 526 ml 256 ml 922 ml 1800 ml Output Urine Total 550 ml 650 ml 1500 ml # Bowel Movements 0 0 Exam General: Patient is laying supine in bed in no apparent distress. Speech is clear today and patient appears stronger HEENT: Head is atraumatic and normocephalic. Eyes: Pupils are equally round and reactive to light and accommodation. Extraocular muscles are intact. Sclera are white, anicteric. Subconjunctival mucosa is pink. Ears and nose are unremarkable. Oropharynx: There is no mucosal lesions, there is no thrush, there is no pharyngitis. Neck: Is supple, there are no nodes, or masses or tenderness. Chest: Is clear to auscultation and percussion. There are no rales, rhonchi, wheezes or rubs. Heart: Rate is slightly bradycardic, rhythm is regular. There is no new murmur , rub or gallop. Abdomen: Good bowel sounds are present. Abdomen is soft, nontender, no organomegaly or masses were appreciated. Extremities: Are symmetrical and well perfused. There is no edema, there is no cellulitis, no rash. Neurologic: There are no focal neurological deficits. Cranial nerves II through XII are intact. There are no sensory or motor deficits. Patient's speech is clear. Patient appears stronger. Psychiatric: Patients mood is calm and she shows no sign of agitation. Genital: Deferred Rectal: Deferred Lab and Diagnostics Result Diagram: 02/15/17 0530 02/15/17 0530 Microbiology blood cx x2 and urine cx pending X-Rays, CTs and MRIs CXR with no acute cardiopulmonary findings CTA chest negative for PE 12-lead ECG ECG Interpretation: Received Atropine in field NSR with rate of 80 QTC of 507 (QTC of 450 on prior ECG, 06/11/16) Left ventricular hypertrophy, unchanged from prior Cardiac Echo Impressions Echocardiogram Report Name: CHICHO RINALDI EStudy Date : 02/14/2017 Height: 60 in Hospital Exam Location: [facility] Weight: 102 lb Gender: Female BSA: 1.4 m2 : 1930 Age: 87 yrs BP: 148/77 mmHg Reason For Study: BRADYCARDIA Ordering Physician: HOSPITALIST [facility] Performed By: Radha Vanegas Referring Physician: Dr. Domo Villa Interpretation Summary The left ventricle is normal in size, wall thickness, and systolic function without any focal wall motion abnormalities. The ejection fraction is estimated to be 55-60%. The left atrium is severely dilated. The mitral valve leaflets appear mildly thickened, but open well. There is mild mitral regurgitation. There is moderate aortic regurgitation. There is mild tricuspid regurgitation. Assessment & Plan The patient is a very pleasant 87yo white female with Parkinson's Disease, problems with dyspnea on exertion since a hernia operation 7 years ago, and a fall onto her back 4 days ago presents with increased SOB at rest and weakness that worsened enough today to call 911. She was found by EMS to be bradycardic in the 30s and 40s and was given Atropine in the field. Her heart rate has improved to 61-74 and she has weaned off the oxygen she needed initially in the ER, satting 98% on room air now. She says she has had dry heaves for a week, feels tight at the base of her throat, some mild dysphagia and a slight sore throat. At home she was having some mild chest pressure but that resolved before getting to the ER. 1. Acute Hypoxic Respiratory Failure, present at the time of admission, improved. Likely secondary to bradycardia, improved with one dose of Atropine in the field by paramedics. -Continue remote telemetry -Consult by cardiology Dr Abreu is appreciated. No pacemaker is recommended at this time. Continue close observation. -Oxygen available as needed for O2 sat less than 92% 2. Bradycardia, present in the field, resolved by admission, secondary to vasovagal response from repetitive dry heaving vs sick sinus syndrome. Thyroid disease also considered -ECHO ordered. -Cardiology consult by appreciated. No pacemaker is recommended at this time. Will continue close monitoring by telemetry. -TSH is normal at 1.030 2. Prolonged QT interval, present at the time of admission, worsened from previous EKG in May 2016 with QTc now 507 -Avoid QT prolonging drugs, Zofran to be used sparingly 3. Parkinson's Disease, present at the time of admission, stable -Patient's Sinemet is not on our formulary so we are substituting as slightly high dose: 10-100mg increased to 12.5-125mg -Continue other home medications: Carbidopa-Levodopa 50-200mg PO qhs and Mirapex 0.25mg PO qhs - Patient's speech has improved and she appears much stronger today - We will consult physical therapy to assess for possible discharge home with home health. 4. Depression, present at the time of admission, stable -continue Sertraline 25mg PO daily 5. Vitamin B12 deficiency, present at the time of admission, stable -continue supplementation at 1000mcg daily 6. Mild elevation of BNP, was not at the time of admission, level is 860, attributed to heart strain from bradycardia and dyspnea 7. Hypokalemia, present at the time of admission, mild at 3.4 -remote telemetry -initiate K/Mg repletion protocol PRN medications available for heartburn, constipation: Maalox, Senna, Miralax Disposition: We will continue to monitor closely over the next 24-48 hours. Will ask physical therapy to evaluate and treat patient. Will discuss with social services counselor need for placement. Pain Evaluation: Adequate Pain Control GI Prophylaxis: Not indicated VTE Prophylaxis: Sub-Q Heparin (Unfractionated) Resuscitation Status: DNR/DNI:Do Not Resuscitate/Intubate Limited Interventions: Medications and IV Fluid Beka Hemphill MD Feb 15, 2017 22:34
[2017-02-16] VITALS (9 sets, daily range): BP systolic 133–188; BP diastolic 51–90; PULSE 46–66; RESP 16–20; O2SAT 95–97
[2017-02-16] MEDS: Heparin 5,000 Unit/mL Inj SUBQ SCH ×3 (00:15→16:55)
--- NOTE | 2017-02-16 05:33 | NUR ---
Cardiac: Pt remained stable in a sinus bradycardia throughout the night; HR 40s to 50s. However, the pt's blood pressure continues to remain elevated with a systolic pressure in the 160s to 180s. No complaints per pt.
[2017-02-16 06:56] LABS: BASOPHILS % (AUTO) 0.6 % (0-3); EOSINOPHILS % (AUTO) 2.6 % (0-5); MONOCYTES % (AUTO) 9.3 % (4-12); Mean Corpuscular Hemoglobin 31.1 pg (27.0-35.0); NEUTROPHILS % (AUTO) 57.1 % (40-74); Platelet Count 260 bil/L (150-400)
[2017-02-16 07:18] LABS: Magnesium 1.9 mg/dL (1.6-2.6)
[2017-02-16] MEDS: Potassium Chloride 20 mEq SR Tablet PO SCH ×2 (08:24→21:09)
[2017-02-16] MEDS: Carbidopa-Levodopa 25-250 mg Tablet PO SCH ×3 (08:26→21:09)
[2017-02-16] MEDS: Polyethylene Glycol (PEG) 17 Gm Powder PO PRN (08:26)
[2017-02-16] MEDS: Albuterol 2.5 mg/3 mL Inhalation Solution NEB PRN (08:45)
[2017-02-16] MEDS: cefTRIAXone Inj 2,000 MG in Dextrose 5% Minibag Plus 50 ML IV SCH (10:42)
--- NOTE | 2017-02-16 14:23 | NUR ---
SW - Continued Discharge Planning Pt requested to meet with SW to discuss options for in-home care. SW informed the pt that PT is recommending SNF. Pt is declining. Pt states she has used [facility] in the past and wasn't happy with them. SW followed up with [facility] guide and suggested she look at this for other options for in-home care. SW choiced for HH and Pt requested [facility]. SW gave access to [facility]. SW will continue to follow. OPAL Wang
--- NOTE | 2017-02-16 17:42 | NUR ---
Cardiac Pt SB 40s-50s this shift, SBP 170s. Dr. Hemphill notified of ongoing HTN, no new orders placed 2/2 presenting sx of dizziness and continued bradycardia. Pt denies CP/pressure. Likely d/c to SNF tomorrow.
[2017-02-16] MEDS: LORazepam 0.5 mg Tablet PO SCH (21:09)
--- NOTE | 2017-02-16 23:18 | PCM.PNMED ---
Subjective Date of Service Feb 16, 2017 Subjective Patient complains of still being very weak. She understands that she did not do very well with physical therapy today. Exam Vital Signs Vital Sign - Last Date Time Temp Pulse Resp B/P Pulse Ox O2 Delivery O2 Flow Rate FiO2 02/16/17 20:40 36.5 54 18 188/88 95 Room Air 02/13/17 23:43 2 Intake and Output 02/15/17 02/15/17 02/16/17 Cumulative From/Thru 15:00 23:00 07:00 02/13/17 20:31 - 02/16/17 06:13 Intake Total 1238 ml 100 ml 3868 ml Output Total 1260 ml 300 ml 3060 ml Balance -22 ml -200 ml 808 ml Intake Oral 932 ml 100 ml 1762 ml IV Total 306 ml 2106 ml Output Urine Total 1260 ml 300 ml 3060 ml # Bowel Movements 0 0 Exam General: Patient is laying supine in bed in no apparent distress. Speech is clear today and patient appears stronger HEENT: Head is atraumatic and normocephalic. Eyes: Pupils are equally round and reactive to light and accommodation. Extraocular muscles are intact. Sclera are white, anicteric. Subconjunctival mucosa is pink. Ears and nose are unremarkable. Oropharynx: There is no mucosal lesions, there is no thrush, there is no pharyngitis. Neck: Is supple, there are no nodes, or masses or tenderness. Chest: Is clear to auscultation and percussion. There are no rales, rhonchi, wheezes or rubs. Heart: Rate is slightly bradycardic, rhythm is regular. There is no new murmur , rub or gallop. Abdomen: Good bowel sounds are present. Abdomen is soft, nontender, no organomegaly or masses were appreciated. Extremities: Are symmetrical and well perfused. There is no edema, there is no cellulitis, no rash. Neurologic: There are no focal neurological deficits. Cranial nerves II through XII are intact. There are no sensory or motor deficits. Patient's speech is clear. Patient appears stronger. Psychiatric: Patients mood is calm and she shows no sign of agitation. Genital: Deferred Rectal: Deferred Lab and Diagnostics Result Diagram: 02/16/17 0610 02/16/17 0610 Microbiology blood cx x2 and urine cx pending X-Rays, CTs and MRIs CXR with no acute cardiopulmonary findings CTA chest negative for PE 12-lead ECG ECG Interpretation: Received Atropine in field NSR with rate of 80 QTC of 507 (QTC of 450 on prior ECG, 06/11/16) Left ventricular hypertrophy, unchanged from prior Cardiac Echo Impressions Echocardiogram Report Name: CHICHO RINALDI EStudy Date : 02/14/2017 Height: 60 in Hospital Exam Location: [facility] Weight: 102 lb Gender: Female BSA: 1.4 m2 : 1930 Age: 87 yrs BP: 148/77 mmHg Reason For Study: BRADYCARDIA Ordering Physician: [facility]OSPITALIST [facility] Performed By: Radha Vanegas Referring Physician: Dr. Domo Villa Interpretation Summary The left ventricle is normal in size, wall thickness, and systolic function without any focal wall motion abnormalities. The ejection fraction is estimated to be 55-60%. The left atrium is severely dilated. The mitral valve leaflets appear mildly thickened, but open well. There is mild mitral regurgitation. There is moderate aortic regurgitation. There is mild tricuspid regurgitation. Assessment & Plan The patient is a very pleasant 87yo white female with Parkinson's Disease, problems with dyspnea on exertion since a hernia operation 7 years ago, and a fall onto her back 4 days ago presents with increased SOB at rest and weakness that worsened enough today to call 911. She was found by EMS to be bradycardic in the 30s and 40s and was given Atropine in the field. Her heart rate has improved to 61-74 and she has weaned off the oxygen she needed initially in the ER, satting 98% on room air now. She says she has had dry heaves for a week, feels tight at the base of her throat, some mild dysphagia and a slight sore throat. At home she was having some mild chest pressure but that resolved before getting to the ER. 1. Acute Hypoxic Respiratory Failure, present at the time of admission, improved. Likely secondary to bradycardia, improved with one dose of Atropine in the field by paramedics. -Continue remote telemetry -Consult by can maker Dr Abreu is appreciated. No pacemaker is recommended at this time. Continue close observation on telemetry. -Oxygen available as needed for O2 sat less than 92% 2. Bradycardia, present in the field, resolved by admission, secondary to vasovagal response from repetitive dry heaving vs sick sinus syndrome. Thyroid disease also considered -ECHO done as described above -Cardiology consult by appreciated. He has reviewed the patient's echocardiogram and rhythm strips and EKGs and evaluated the patient. No pacemaker is recommended at this time. Will continue close monitoring by telemetry. -TSH is normal at 1.030 2. Prolonged QT interval, present at the time of admission, worsened from previous EKG in May 2016 with QTc now 507 -Avoid QT prolonging drugs, Zofran to be used sparingly 3. Parkinson's Disease, present at the time of admission, stable -Patient's Sinemet is not on our formulary so we are substituting as slightly high dose: 10-100mg increased to 12.5-125mg -Continue other home medications: Carbidopa-Levodopa 50-200mg PO qhs and Mirapex 0.25mg PO qhs - Patient's speech has improved and she appears much stronger today - We will consult physical therapy to assess for possible discharge home with home health. 4. Depression, present at the time of admission, stable -continue Sertraline 25mg PO daily 5. Vitamin B12 deficiency, present at the time of admission, stable -continue supplementation at 1000mcg daily 6. Mild elevation of BNP, was not at the time of admission, level is 860, attributed to heart strain from bradycardia and dyspnea 7. Hypokalemia, present at the time of admission, mild at 3.4 -remote telemetry -initiate K/Mg repletion protocol 8. Weakness - Patient was evaluated by physical therapy today and is not extremely high fall risk and deemed to be not safe for discharge home alone at this time. - Continue physical therapy - PT recommends transfer to a custodial facility for rehabilitation temporarily until she can get strong enough to go home. Patient is not interested in this idea however, I explained to her that she may not have other options and to seriously think about it. PRN medications available for heartburn, constipation: Maalox, Senna, Miralax Disposition: We will continue to monitor closely over the next 24-48 hours. Will ask physical therapy to evaluate and treat patient. Will discuss with social problems specialist need for placement. Pain Evaluation: Adequate Pain Control GI Prophylaxis: Not indicated VTE Prophylaxis: Sub-Q Heparin (Unfractionated) Resuscitation Status: DNR/DNI:Do Not Resuscitate/Intubate Limited Interventions: Medications and IV Fluid Beka Hemphill MD Feb 16, 2017 23:18
[2017-02-17] VITALS (10 sets, daily range): BP systolic 162–184; BP diastolic 72–82; PULSE 54–72; RESP 18–32; O2SAT 94–98
[2017-02-17] MEDS: Carbidopa-Levodopa 50-200 mg ER12 Tablet PO SCH ×2 (00:23→22:01)
[2017-02-17] MEDS: Heparin 5,000 Unit/mL Inj SUBQ SCH ×3 (00:23→17:49)
--- NOTE | 2017-02-17 05:06 | NUR ---
HR/activity Tele SB in the 40s-50s per telephone messenger. denies dizziness or lightheadedness. 1-2PA to [facility] with FWW and gaitbelt. BLE strength is unpredictable due to parkinson's. tolerated going to [facility] with minimal 2PA. bed alarm on for safety.
[2017-02-17] MEDS: Carbidopa-Levodopa 25-250 mg Tablet PO SCH ×3 (08:48→20:33)
[2017-02-17] MEDS: cefTRIAXone Inj 2,000 MG in Dextrose 5% Minibag Plus 50 ML IV SCH (08:58)
[2017-02-17 09:57] LABS: BASOPHILS % (AUTO) 0.4 % (0-3); EOSINOPHILS % (AUTO) 2.2 % (0-5); MONOCYTES % (AUTO) 7.5 % (4-12); Mean Corpuscular Volume 94.3 fL (81-100); NEUTROPHILS % (AUTO) 67.6 % (40-74); Platelet Count 276 bil/L (150-400)
--- NOTE | 2017-02-17 13:32 | NUR ---
[facility] signed
--- NOTE | 2017-02-17 18:39 | NUR ---
SOB Pt reports is feeling SOB, requesting breathing treatment. RT notified, will come to [facility] shortly. Pt re-positioned for increased lung capacity. Call light in reach will continue to monitor.
[2017-02-17] MEDS: Albuterol 2.5 mg/3 mL Inhalation Solution NEB PRN (19:52)
[2017-02-17] MEDS: LORazepam 0.5 mg Tablet PO SCH (20:32)
--- NOTE | 2017-02-17 23:31 | PCM.PNMED ---
Subjective Date of Service Feb 17, 2017 Subjective The patient is sitting up on the side of the bed and appears to have more energy than yesterday. Patient complains of some irritation in her throat. Exam Vital Signs Vital Sign - Last Date Time Temp Pulse Resp B/P Pulse Ox O2 Delivery O2 Flow Rate FiO2 02/17/17 19:53 68 32 97 Room Air 02/17/17 19:33 36.4 162/80 02/13/17 23:43 2 Intake and Output 02/16/17 02/16/17 02/17/17 Cumulative From/Thru 15:00 23:00 07:00 02/13/17 20:31 - 02/17/17 06:39 Intake Total 875 ml 100 ml 4843 ml Output Total 925 ml 250 ml 4235 ml Balance -50 ml -150 ml 608 ml Intake Oral 875 ml 100 ml 2737 ml IV Total 2106 ml Output Urine Total 925 ml 250 ml 4235 ml # Bowel Movements 0 Exam General: Patient is laying supine in bed in no apparent distress. Speech is clear today and patient appears stronger HEENT: Head is atraumatic and normocephalic. Eyes: Pupils are equally round and reactive to light and accommodation. Extraocular muscles are intact. Sclera are white, anicteric. Subconjunctival mucosa is pink. Ears and nose are unremarkable. Oropharynx: There is no mucosal lesions, there is no thrush, there is no pharyngitis. Neck: Is supple, there are no nodes, or masses or tenderness. Chest: Is clear to auscultation and percussion. There are no rales, rhonchi, wheezes or rubs. Heart: Rate is slightly bradycardic, rhythm is regular. There is no new murmur , rub or gallop. Abdomen: Good bowel sounds are present. Abdomen is soft, nontender, no organomegaly or masses were appreciated. Extremities: Are symmetrical and well perfused. There is no edema, there is no cellulitis, no rash. Neurologic: There are no focal neurological deficits. Cranial nerves II through XII are intact. There are no sensory or motor deficits. Patient's speech is clear. Patient appears stronger. Psychiatric: Patients mood is calm and she shows no sign of agitation. Genital: Deferred Rectal: Deferred Lab and Diagnostics Result Diagram: 02/17/17 0832 02/17/17 0832 Microbiology blood cx x2 and urine cx pending X-Rays, CTs and MRIs CXR with no acute cardiopulmonary findings CTA chest negative for PE 12-lead ECG ECG Interpretation: Received Atropine in field NSR with rate of 80 QTC of 507 (QTC of 450 on prior ECG, 06/11/16) Left ventricular hypertrophy, unchanged from prior Cardiac Echo Impressions Echocardiogram Report Name: CHICHO RINALDI EStudy Date : 02/14/2017 Height: 60 in Hospital Exam Location: [facility] Weight: 102 lb Gender: Female BSA: 1.4 m2 : 1930 Age: 87 yrs BP: 148/77 mmHg Reason For Study: BRADYCARDIA Ordering Physician: HOSPITALIST [facility] Performed By: Radha Vanegas Referring Physician: Dr. Domo Villa Interpretation Summary The left ventricle is normal in size, wall thickness, and systolic function without any focal wall motion abnormalities. The ejection fraction is estimated to be 55-60%. The left atrium is severely dilated. The mitral valve leaflets appear mildly thickened, but open well. There is mild mitral regurgitation. There is moderate aortic regurgitation. There is mild tricuspid regurgitation. Assessment & Plan The patient is a very pleasant 87yo white female with Parkinson's Disease, problems with dyspnea on exertion since a hernia operation 7 years ago, and a fall onto her back 4 days ago presents with increased SOB at rest and weakness that worsened enough today to call 911. She was found by EMS to be bradycardic in the 30s and 40s and was given Atropine in the field. Her heart rate has improved to 61-74 and she has weaned off the oxygen she needed initially in the ER, satting 98% on room air now. She says she has had dry heaves for a week, feels tight at the base of her throat, some mild dysphagia and a slight sore throat. At home she was having some mild chest pressure but that resolved before getting to the ER. 1. Acute Hypoxic Respiratory Failure, present at the time of admission, improved. Likely secondary to bradycardia, improved with one dose of Atropine in the field by paramedics. -Continue remote telemetry -Consult by automotive service advisor Dr Abreu is appreciated. No pacemaker is recommended at this time. Continue close observation on telemetry. -Oxygen available as needed for O2 sat less than 92% 2. Bradycardia, present in the field, resolved by admission, secondary to vasovagal response from repetitive dry heaving vs sick sinus syndrome. Thyroid disease also considered -ECHO done as described above -Cardiology consult by Dr.Vaderah pettit. He has reviewed the patient's echocardiogram and rhythm strips and EKGs and evaluated the patient. No pacemaker is recommended at this time. Will continue close monitoring by telemetry. -TSH is normal at 1.030 2. Prolonged QT interval, present at the time of admission, worsened from previous EKG in May 2016 with QTc now 507 -Avoid QT prolonging drugs, Zofran to be used sparingly 3. Parkinson's Disease, present at the time of admission, stable -Patient's Sinemet is not on our formulary so we are substituting as slightly high dose: 10-100mg increased to 12.5-125mg -Continue other home medications: Carbidopa-Levodopa 50-200mg PO qhs and Mirapex 0.25mg PO qhs - Patient's speech has improved and she appears much stronger today - We consulted physical therapy to assess for possible discharge home with home health. They have recommended that patient go to a detention facility for rehabilitation. However, patient refuses. 4. Depression, present at the time of admission, stable -continue Sertraline 25mg PO daily 5. Vitamin B12 deficiency, present at the time of admission, stable -continue supplementation at 1000mcg daily 6. Mild elevation of BNP, was not at the time of admission, level is 860, attributed to heart strain from bradycardia and dyspnea 7. Hypokalemia, present at the time of admission, mild at 3.4 -remote telemetry -initiate K/Mg repletion protocol 8. Weakness, present at the time of admission, improved - Patient was evaluated by physical therapy today and is not extremely high fall risk and deemed to be not safe for discharge home alone at this time. - Continue physical therapy - PT recommends transfer to a detention facility for rehabilitation temporarily until she can get strong enough to go home. Patient is not interested in this idea however, I explained to her that she may not have other options and to seriously think about it. PRN medications available for heartburn, constipation: Maalox, Senna, Miralax Disposition: As patient continues to refuse placement in detention facility and does appear to be gaining some strength on IV antibiotics for urinary tract infection. Likely will continue IV and Biaxin for another day and then discharged home on oral antibiotics. She does have hand railing throughout her house and insist on going back home. Pain Evaluation: Adequate Pain Control GI Prophylaxis: Not indicated VTE Prophylaxis: Sub-Q Heparin (Unfractionated) Resuscitation Status: DNR/DNI:Do Not Resuscitate/Intubate Limited Interventions: Medications and IV Fluid Beka Hemphill MD Feb 17, 2017 23:31
[2017-02-18] VITALS (8 sets, daily range): BP systolic 127–157; BP diastolic 56–84; PULSE 58–74; RESP 16–20; O2SAT 95–98
[2017-02-18] MEDS: Heparin 5,000 Unit/mL Inj SUBQ SCH ×3 (00:29→16:30)
[2017-02-18] MEDS: Nystatin 100,000 Unit/mL 5 mL Suspension PO SCH ×5 (00:38→21:30)
--- NOTE | 2017-02-18 04:26 | NUR ---
SOB Patient c/o SOB at beginning of shift. RT gave the patient a breathing treatment which helped minimize the SOB. Tele erwin high 40's to high 50's. Patient A&Ox3. Patient states she has a dry throat. Saline locked. Room air 96%.
[2017-02-18 05:58] LABS: BASOPHILS % (AUTO) 0.4 % (0-3); MONOCYTES % (AUTO) 9.8 % (4-12); Mean Corpuscular Hemoglobin 30.5 pg (27.0-35.0); Mean Corpuscular Volume 94.8 fL (81-100); NEUTROPHILS % (AUTO) 55.2 % (40-74); Platelet Count 287 bil/L (150-400)
[2017-02-18 06:15] LABS: Magnesium 2.1 mg/dL (1.6-2.6)
[2017-02-18] MEDS: cefTRIAXone Inj 2,000 MG in Dextrose 5% Minibag Plus 50 ML IV SCH (09:18)
[2017-02-18] MEDS: Carbidopa-Levodopa 25-250 mg Tablet PO SCH ×3 (09:19→20:54)
--- NOTE | 2017-02-18 15:12 | CONS ---
[address] [address] CONSULTATION REPORT PATIENT: CHICHO RINALDI : 1930 MR#: [id number] ADMIT: 02/13/2017 JOB ID: [id number] DATE OF SERVICE: 02/18/2017 CARDIOLOGY CONSULTATION: The patient is a pleasant 87-year-old female with a history of significant Parkinson disease. She was admitted with symptoms of increasing dyspnea and an episode of lightheadedness. She was noted to be bradycardic and Dr. Abreu saw her in consultation on February 14 concluding that pacemaker was not indicated. Prior to her being discharged, the hospital team again is concerned about her bradycardic rhythm and whether or not it is contributing to her general disability and whether or not she would benefit from pacemaker therapy and has asked my assistance as a second opinion in that regard. This patient was seen by Dr. 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 She had a 24 hour Holter monitor at that time because of concerns regarding bradycardia and had normal sinus rhythm with heart rates between 50 and 100 during the day but heart rates as low as 35-50 during the night. Previous evaluation has also demonstrated [id number]-[id number] aortic insufficiency but otherwise normal left ventricular size and function and nuclear cardiac stress study three years ago demonstrating absence of any underlying ischemic heart disease. When I speak with this patient today, her primary complaint is increased symptoms functional class 3 exertional dyspnea associated with a sense of cold or burning discomfort in her tracheal bronchial areas with inspiration. This patient has been seen a couple of years ago for evaluation of dyspnea by Dr. Leonor Chisholm. Pulmonary function studies previously in January 2015 demonstrated no significant airflow obstruction and a normal diffusion capacity. What is notable to me is the fact that her CT scan on admission to the hospital this time demonstrates significant interstitial pulmonary disease, particularly in her lower right lung and she does have a history of pulmonary emboli in the past as well. Otherwise this patient is followed by Dr. Villa, her primary care provider, and closely by Dr. Alegria, her neurologist, for her significant Parkinson disease. When she was seen by Dr. Alegria in the office on January 17, her predominant complaint was significant gait immobility due to her Parkinson syndrome, and at that point, she went back on carbidopa/levodopa which she has previously stopped because of concerns regarding different symptoms. There was no mention or discussion at that time of her symptoms of dyspnea. PAST MEDICAL HISTORY: Otherwise unremarkable. HOME MEDICATIONS: Include: 1. Aspirin 81 mg a day. 2. Carbidopa/levodopa. 3. Cetrizine 10 mg daily. 4. Combivent inhaler. 5. Ditropan. 6. Donepezil 10 mg daily. 7. Lorazepam as needed. 8. Mirapex 0.125 mg 2-3 tablets every evening. 9. Sertraline 25 mg 2 tablets every morning. PHYSICAL EXAMINATION: Demonstrates a pleasant 87-year-old woman who looks younger than her stated age. She has typical parkinsonian features with hypophonia and tardokinesis. She is alert and oriented. She appears mildly tachypneic and has no complaints of significant dizziness. Her primary complaint to me today is that of her dyspnea which was her predominant admitting complaint as well. Her physical examination otherwise is notable for the absence of significant jugular venous distention. Her carotid upstroke is normal without bruits. Lung moulton demonstrate a few basilar rales at the right lung base without wheezing. Cardiac examination is notable for prominent first and second heart tones. S2 is paradoxically split. I do not hear a diastolic murmur of aortic insufficiency. Abdomen: Soft, nontender. Distal extremities are warm and well perfused. No significant peripheral edema. She does not have a typical pill rolling tremor of Parkinson's. IMPRESSION: The patient has a long history of mild sinus bradycardia from which she is not clearly symptomatic. I do not see that things are too much different now than they were seven years ago and do not feel that pacemaker therapy would have any significant clinical impact for this patient. I think she does have some degree of interstitial pulmonary disease accounting for her symptoms of dyspnea and it might be reasonable or interesting to do repeat pulmonary function studies and compare her diffusion capacity now with what it was when she had previous testing done a couple of years ago. Her oximetry should be evaluated overnight and if she demonstrates evidence of nocturnal hypoxemia nighttime oxygen should be considered. At this point, cardiology will sign off. If Dr. Villa or Dr. Alegria feel there is a need, they can always refer her back to see Dr. Frias who has seen her on several occasions in the past.
--- NOTE | 2017-02-18 16:27 | PCM.DIMED ---
Discharge Instructions Date of Service Feb 18, 2017 Dates of Hospitalization Feb 13, 2017 at 23:56 Discharge Diagnosis Discharge Diagnosis Parkinson's Disease with an E. coli UTI Diet Heart Healthy Activity No restrictions (Patient may resume her usual activities gradually as tolerated. ) Call your provider Fever or Chills, Shortness of breath, Bleeding, Chest pain, Vomitting, Excessive diarrhea, Weakness (unilateral) Patient Instructions Follow-up Provider: Domo Villa MD Follow-up with PCP in: 1 week Beka Hemphill MD Feb 18, 2017 16:27
[2017-02-18] MEDS ORDERED: CEFD300C3 PO (16:32)
[2017-02-18] MEDS ORDERED: SENN-133 PO (16:32)
[2017-02-18] MEDS ORDERED: NYST1000 PO (16:32)
--- NOTE | 2017-02-18 16:47 | NUR ---
Social Work: Discharge Wrapper Sorter spoke with patient and patient in agreement with discharging home with [facility]. Nena from home instead residential met with the patient at bedside to fill out paper work for start of service. home instead [facility] will pick the patient up on 02/19 at 11 a.m. patient will also discharge home with Sil CLAY PT and RN. SW will continue to follow and assist patient. Lanie Martinez LMSW, NICOLA
--- NOTE | 2017-02-18 18:20 | NUR ---
Dispo Recommended to d/c to SNF, pt very resistant. Reports that she would like to just go home to be with her cats and that she has "very good neighbors". On inquiry regarding possibility of a GLF, or other emergency and how she would contact help (ie [facility]), pt again refuses the idea of assisted living and reports having a "couple of bad experiences with that [facility]....it's a long story." Will not discuss details or expound on issues. YARD DEMURRAGE CLERK and notified.
[2017-02-18] MEDS: LORazepam 0.5 mg Tablet PO SCH (21:30)
[2017-02-18] MEDS: Carbidopa-Levodopa 50-200 mg ER12 Tablet PO SCH (21:30)
--- NOTE | 2017-02-19 00:03 | PCM.PNMED ---
Subjective Date of Service Feb 19, 2017 Subjective Patient remains weak but still insisted on going home rather than to a fdc facility or even an assisted living center. Patient has no new complaints. Exam Vital Signs Vital Sign - Last Date Time Temp Pulse Resp B/P Pulse Ox O2 Delivery O2 Flow Rate FiO2 02/18/17 20:08 36.4 60 18 150/74 96 Room Air 02/13/17 23:43 2 Intake and Output 02/18/17 02/18/17 02/19/17 Cumulative From/Thru 15:00 23:00 07:00 02/13/17 20:31 - 02/18/17 21:02 Intake Total 318 ml 6311 ml Output Total 300 ml 6135 ml Balance 18 ml 176 ml Intake Oral 318 ml 4205 ml IV Total 2106 ml Output Urine Total 300 ml 6135 ml # Bowel Movements 0 1 Exam General: Patient is in no apparent distress. She was seen sitting up on the side of the bed. HEENT: Head is atraumatic and normocephalic. Eyes: Pupils are equally round and reactive to light and accommodation. Extraocular muscles are intact. Sclera are white, anicteric. Subconjunctival mucosa is pink. Ears and nose are unremarkable. Oropharynx: There is no mucosal lesions, there is no thrush, there is no pharyngitis. Neck: Is supple, there are no nodes, or masses or tenderness. Chest: Is clear to auscultation and percussion. There are no rales, rhonchi, wheezes or rubs. Heart: Rate is slightly bradycardic, rhythm is regular. There is no new murmur , rub or gallop. Abdomen: Good bowel sounds are present. Abdomen is soft, nontender, no organomegaly or masses were appreciated. Extremities: Are symmetrical and well perfused. There is no edema, there is no cellulitis, no rash. Neurologic: There are no focal neurological deficits. Cranial nerves II through XII are intact. There are no sensory or motor deficits. Patient's speech is clear. Patient appears stronger. Psychiatric: Patients mood is calm and she shows no sign of agitation. Genital: Deferred Rectal: Deferred Lab and Diagnostics Result Diagram: 02/18/17 0515 02/18/17 0515 Microbiology Name: CHICHO RINALDI Age/Sex: 87/F Attend Dr: Yohannes Ledesma MD Acct: [id number] Unit: [id number] Status: ADM IN Location: [facility] [place] 3008-1 Re02/13/17 Disch: Specimen: [id number] Collected: 02/14/17 Status: COMP Req#: [id number] Received: 02/14/17 Source: URINE CC Sp Desc : PEG Aguilar Dr: Jose Obrien MD Ordered: URINE CULT Procedure Result Verified Site Microbiology LOLA CULT URINE Final 02/16/17 Organism 1 ESCHERICHIA COLI U COLONY COUNT/QUANTITY >100,000 CFU/ml Cefazolin-predicts results for the oral agents, cefaclor,cefdinir, cefpodoximen, cefprozil, cefuroximne axetil, cephalexin and loracarbed when used for therapy of uncomplicated UTI's due to E. coli, K. pneumoniae, and Proteus mirabilis. Cefpodoxime, cefdinir and cefuroxime axetil may be tested individually because some isolates may be susceptible to these agents while testing resistant to cefazolin. (CLSI A851-E66 pg 53) 1. ESCHERICHIA COLI M.I.C Interp --------- ------ * AMOXICILLIN/CLAVULATE <=2 S * AMPICILLIN <=2 S * CEFAZOLIN (CEPHALOSPORIN) UTI 4 S * CEFEPIME <=1 S * CEFTRIAXONE <=1 S * CEFUROXIME SODIUM 4 S * CIPROFLOXACIN <=0.25 S * ERTAPENEM <=0.5 S * GENTAMICIN <=1 S * IMIPENEM <=1 S * LEVOFLOXACIN <=0.12 S * NITROFURANTOIN <=16 S * TETRACYCLINE <=1 S * TOBRAMYCIN <=1 S * TRIMETHOPRIM/SULFAMETHOXAZOLE <=20 S X-Rays, CTs and MRIs CXR with no acute cardiopulmonary findings CTA chest negative for PE 12-lead ECG ECG Interpretation: Received Atropine in field NSR with rate of 80 QTC of 507 (QTC of 450 on prior ECG, 06/11/16) Left ventricular hypertrophy, unchanged from prior Cardiac Echo Impressions Echocardiogram Report Name: CHICHO RINALDI EStudy Date : 02/14/2017 Height: 60 in Hospital Exam Location: [facility] Weight: 102 lb Gender: Female BSA: 1.4 m2 : 1930 Age: 87 yrs BP: 148/77 mmHg Reason For Study: BRADYCARDIA Ordering Physician: HOSPITALIST NEENA Performed By: Radha Vanegas Referring Physician: Dr. Domo Villa Interpretation Summary The left ventricle is normal in size, wall thickness, and systolic function without any focal wall motion abnormalities. The ejection fraction is estimated to be 55-60%. The left atrium is severely dilated. The mitral valve leaflets appear mildly thickened, but open well. There is mild mitral regurgitation. There is moderate aortic regurgitation. There is mild tricuspid regurgitation. Assessment & Plan The patient is a very pleasant 87yo white female with Parkinson's Disease, problems with dyspnea on exertion since a hernia operation 7 years ago, and a fall onto her back 4 days ago presents with increased SOB at rest and weakness that worsened enough today to call 911. She was found by EMS to be bradycardic in the 30s and 40s and was given Atropine in the field. Her heart rate has improved to 61-74 and she has weaned off the oxygen she needed initially in the ER, satting 98% on room air now. She says she has had dry heaves for a week, feels tight at the base of her throat, some mild dysphagia and a slight sore throat. At home she was having some mild chest pressure but that resolved before getting to the ER. 1. Acute Hypoxic Respiratory Failure, present at the time of admission, improved. Likely secondary to bradycardia, improved with one dose of Atropine in the field by paramedics. -Continue remote telemetry -Consult by information resources director Dr Abreu is appreciated. No pacemaker is recommended at this time. Continue close observation on telemetry. As patient continues to feel lethargic and has no energy and is at high risk of being discharged home to her home despite having many handrails available Dr. Rankin was consulted for second opinion cardiology consultation. He agreed with Dr. Menon is a pacemaker is not indicated. -Oxygen available as needed for O2 sat less than 92% 2. Bradycardia, present in the field, resolved by admission, secondary to vasovagal response from repetitive dry heaving vs sick sinus syndrome. Thyroid disease also considered -ECHO done as described above -Cardiology consult by appreciated. He has reviewed the patient's echocardiogram and rhythm strips and EKGs and evaluated the patient. No pacemaker is recommended at this time. Will continue close monitoring by telemetry. -TSH is normal at 1.030 2. Prolonged QT interval, present at the time of admission, worsened from previous EKG in May 2016 with QTc now 507 -Avoid QT prolonging drugs, Zofran to be used sparingly 3. Parkinson's Disease, present at the time of admission, stable -Patient's Sinemet is not on our formulary so we are substituting as slightly high dose: 10-100mg increased to 12.5-125mg -Continue other home medications: Carbidopa-Levodopa 50-200mg PO qhs and Mirapex 0.25mg PO qhs - Patient's speech has improved and she appears much stronger today - We consulted physical therapy to assess for possible discharge home with home health. They have recommended that patient go to a fdc facility for rehabilitation. However, patient refuses. 4. Depression, present at the time of admission, stable -continue Sertraline 25mg PO daily 5. Vitamin B12 deficiency, present at the time of admission, stable -continue supplementation at 1000mcg daily 6. Mild elevation of BNP, was not at the time of admission, level is 860, attributed to heart strain from bradycardia and dyspnea 7. Hypokalemia, present at the time of admission, mild at 3.4 -remote telemetry -initiate K/Mg repletion protocol 8. Weakness, present at the time of admission, improved - Patient was evaluated by physical therapy today and is not extremely high fall risk and deemed to be not safe for discharge home alone at this time. - Continue physical therapy - PT recommends transfer to a fdc facility for rehabilitation temporarily until she can get strong enough to go home. Patient is not interested in this idea however, I explained to her that she may not have other options and to seriously think about it. PRN medications available for heartburn, constipation: Maalox, Senna, Miralax Disposition: As patient continues to refuse placement in fdc facility and does appear to be gaining some strength on IV antibiotics for urinary tract infection. Likely will continue IV antibiotics for another day and then discharged home on oral antibiotics. She does have hand railing throughout her house and insist on going back home. Pain Evaluation: Adequate Pain Control GI Prophylaxis: Not indicated VTE Prophylaxis: Sub-Q Heparin (Unfractionated) Resuscitation Status: DNR/DNI:Do Not Resuscitate/Intubate Limited Interventions: Medications and IV Fluid Beka Hemphill MD Feb 19, 2017 00:03
[2017-02-19] MEDS: Heparin 5,000 Unit/mL Inj SUBQ SCH ×2 (00:34→08:26)
[2017-02-19 01:19] VITALS: BP 158/68; PULSE 74; RESP 18; O2SAT 97
[2017-02-19 02:40] VITALS: PULSE 51
[2017-02-19 05:40] VITALS: PULSE 55
[2017-02-19 05:41] VITALS: BP 173/78; PULSE 64; RESP 18; O2SAT 98
[2017-02-19 07:39] VITALS: PULSE 48
[2017-02-19] MEDS: cefTRIAXone Inj 2,000 MG in Dextrose 5% Minibag Plus 50 ML IV SCH (08:24)
[2017-02-19] MEDS: Carbidopa-Levodopa 25-250 mg Tablet PO SCH (08:25)
[2017-02-19] MEDS: Nystatin 100,000 Unit/mL 5 mL Suspension PO SCH (08:26)
[2017-02-19 09:52] VITALS: BP 142/75; PULSE 56; RESP 18; O2SAT 99
--- NOTE | 2017-02-19 13:14 | NUR ---
Discharge Went over discharge instructions and medications with patient and her part-time caregiver both verbally acknowledged understanding. IV and tele removed. MD at bedside explaining that he felt a SNIFF would be more appropriate for pt but she adamantly refused. Pt left in wheelchair with printing specialist to awaiting transportation. No s/s of distress at time of dc.
--- NOTE | 2017-02-19 22:18 | PCM.DC.MED ---
Discharge Summary Date of Service Feb 19, 2017 Dates of Hospitalization Date of Hospital Admission Feb 13, 2017 at 23:56 Date of Discharge: Feb 19, 2017 Providers: Admitting Physician: Yohannes Ledesma MD Primary Care Physician: Domo Villa MD Attending Physician: Yohannes Ledesma MD Diagnosis at Time of Discharge Diagnosis at Time of Discharge Parkinson's Disease with an E. coli UTI Procedures XRay, CTs & MRIs CXR with no acute cardiopulmonary findings CTA chest negative for PE ECG 12 Lead ECG Interpretation: Received Atropine in field NSR with rate of 80 QTC of 507 (QTC of 450 on prior ECG, 06/11/16) Left ventricular hypertrophy, unchanged from prior Cardiac Echo Impression Echocardiogram Report Name: CHICHO RINALDI EStudy Date : 02/14/2017 Height: 60 in Hospital Exam Location: [facility] Weight: 102 lb Gender: Female BSA: 1.4 m2 : 1930 Age: 87 yrs BP: 148/77 mmHg Reason For Study: BRADYCARDIA Ordering Physician: HOSPITALIST [facility] Performed By: Radha Vanegas Referring Physician: Dr. Domo Villa Interpretation Summary The left ventricle is normal in size, wall thickness, and systolic function without any focal wall motion abnormalities. The ejection fraction is estimated to be 55-60%. The left atrium is severely dilated. The mitral valve leaflets appear mildly thickened, but open well. There is mild mitral regurgitation. There is moderate aortic regurgitation. There is mild tricuspid regurgitation. Brief History The patient is a very pleasant 87yo woman with Parkinson's Disease, problems with SOL since a hernia operation 7 years ago, and a fall onto her back 4 days ago presents with increased SOB and weakness. She was found by EMS to be bradycardic in the 30s and 40s and was given Atropine in the field. Her heart rate has improved to 61-74 and she has weaned off the oxygen she needed initially in the ER, satting 98% on room air now. She says she has had dry heaves for a week, feels tight at the base of her throat, some mild dysphagia and a slight sore throat. At home she was having some mild chest pressure but that resolved before getting to the ER. She was admitted to the hospitalist service for further evaluation and treatment. Hospital Course The patient is a very pleasant 87yo white female with Parkinson's Disease, problems with dyspnea on exertion since a hernia operation 7 years ago, and a fall onto her back 4 days ago presents with increased SOB at rest and weakness that worsened enough today to call 911. She was found by EMS to be bradycardic in the 30s and 40s and was given Atropine in the field. Her heart rate has improved to 61-74 and she has weaned off the oxygen she needed initially in the ER, satting 98% on room air now. She says she has had dry heaves for a week, feels tight at the base of her throat, some mild dysphagia and a slight sore throat. At home she was having some mild chest pressure but that resolved before getting to the ER. 1. Acute Hypoxic Respiratory Failure, present at the time of admission, improved. Likely secondary to bradycardia, improved with one dose of Atropine in the field by paramedics. -Continue remote telemetry -Consult by neurodiagnostic technologist Dr Abreu is appreciated. No pacemaker is recommended at this time. Continue close observation on telemetry. As patient continues to feel lethargic and has no energy and is at high risk of being discharged home to her home despite having many handrails available Dr. Rankin was consulted for second opinion cardiology consultation. He agreed with Dr. Menon is a pacemaker is not indicated. -Oxygen available as needed for O2 sat less than 92% 2. Bradycardia, present in the field, resolved by admission, secondary to vasovagal response from repetitive dry heaving vs sick sinus syndrome. Thyroid disease also considered -ECHO done as described above -Cardiology consult by appreciated. He has reviewed the patient's echocardiogram and rhythm strips and EKGs and evaluated the patient. No pacemaker is recommended at this time. Will continue close monitoring by telemetry. -TSH is normal at 1.030 2. Prolonged QT interval, present at the time of admission, worsened from previous EKG in May 2016 with QTc now 507 -Avoid QT prolonging drugs, Zofran to be used sparingly 3. Parkinson's Disease, present at the time of admission, stable -Patient's Sinemet is not on our formulary so we are substituting as slightly high dose: 10-100mg increased to 12.5-125mg -Continue other home medications: Carbidopa-Levodopa 50-200mg PO qhs and Mirapex 0.25mg PO qhs - Patient's speech has improved and she appears much stronger today - We consulted physical therapy to assess for possible discharge home with home health. They have recommended that patient go to a jail facility for rehabilitation. However, patient refuses. [facility] continued to refuse right up until the time of discharge to go to a jail facility she is insisting on going home with home health. 4. Depression, present at the time of admission, stable -continue Sertraline 25mg PO daily 5. Vitamin B12 deficiency, present at the time of admission, stable -continue supplementation at 1000mcg daily 6. Mild elevation of BNP, was not at the time of admission, level is 860, attributed to heart strain from bradycardia and dyspnea 7. Hypokalemia, present at the time of admission, mild at 3.4 -remote telemetry -initiate K/Mg repletion protocol 8. Weakness, present at the time of admission, improved - Patient was evaluated by physical therapy today and is not extremely high fall risk and deemed to be not safe for discharge home alone at this time. - Continue physical therapy - PT recommends transfer to a jail facility for rehabilitation temporarily until she can get strong enough to go home. Patient is not interested in this idea however, I explained to her that she may not have other options and to seriously think about it. PRN medications available for heartburn, constipation: Maalox, Senna, Miralax Disposition: As patient continues to refuse placement in jail facility she will be discharged home with home health. Exam Vital Signs (Last) Date Time Temp Pulse Resp B/P Pulse Ox O2 Delivery O2 Flow Rate FiO2 02/19/17 09:53 Room Air 02/19/17 09:52 36.4 56 18 142/75 99 02/13/17 23:43 2 Exam General: Patient is in no apparent distress. She was seen sitting up on the side of the bed. HEENT: Head is atraumatic and normocephalic. Eyes: Pupils are equally round and reactive to light and accommodation. Extraocular muscles are intact. Sclera are white, anicteric. Subconjunctival mucosa is pink. Ears and nose are unremarkable. Oropharynx: There is no mucosal lesions, there is no thrush, there is no pharyngitis. Neck: Is supple, there are no nodes, or masses or tenderness. Chest: Is clear to auscultation and percussion. There are no rales, rhonchi, wheezes or rubs. Heart: Rate is slightly bradycardic, rhythm is regular. There is no new murmur , rub or gallop. Abdomen: Good bowel sounds are present. Abdomen is soft, nontender, no organomegaly or masses were appreciated. Extremities: Are symmetrical and well perfused. There is no edema, there is no cellulitis, no rash. Neurologic: There are no focal neurological deficits. Cranial nerves II through XII are intact. There are no sensory or motor deficits. Patient's speech is clear. Patient appears stronger. Psychiatric: Patients mood is calm and she shows no sign of agitation. Genital: Deferred Rectal: Deferred Test 02/13/17 20:20 02/13/17 20:55 02/14/17 02:19 02/14/17 03:00 Hold Purple Top Tube Received (Received) Prothrombin Time 11.4sec (8.1-12.5) Prothromb Time International Ratio 1.06ratio D-Dimer 2.40mg/L FEU (<0.50) Hold Blue Top Tube Received (Received) Troponin T < 0.010ug/L (0.0-0.011) Hold [place] Top Tube Received (Received) Lactic Acid Level 1.4mmol/L (0.4-2.0) Urine Color Yellow (YELLOW) Urine Appearance Hazy (CLEAR,HAZY) Urine pH >1.050 (5.0-8.0) Urine Specific Theresa N (1.003-1.035) Urine Protein Negativemg/dL (NEG,TRACE) Urine Glucose (UA) Negativemg/dL (NEGATIVE) Urine Ketones 15mg/dL (NEGATIVE) Urine Occult Blood Trace (NEGATIVE) Urine Nitrite Positive (NEGATIVE) Urine Bilirubin Negative (NEGATIVE) Urine Urobilinogen Normalmg/dL (NORMAL) Urine Leukocyte Esterase Negative (NEGATIVE) Urine RBC 3-10/hpf (0-2) Urine WBC 0-5/hpf (0-5) Urine Epithelial Cells Few/hpf (NONE-MOD) Urine Crystals None seen (NONE SEEN) Urine Bacteria Many/hpf (NONE-FEW) Urine Hyaline Casts None/lpf (NONE) Urine Granular Casts None seen (NONE SEEN) Urine Waxy Casts None seen (NONE SEEN) Urine Red Blood Cell Casts None seen (NONE SEEN) Urine White Blood Cell Casts None seen (NONE SEEN) Urine Mucus None seen (None Seen) Urine Trichomonas None seen (NONE SEEN) Urine Yeast None (NONE SEEN) Urine Culture Reflexed Indicated Activated Partial Thromboplast Time 67.4sec (22.8-33.0) Test 02/14/17 06:00 02/15/17 05:30 02/18/17 05:15 Thyroid Stimulating Hormone (TSH) 1.030uIU/mL (0.450-4.500) Phosphorus Level 2.4mg/dL (2.5-4.9) Pro-B-Type Natriuretic Peptide 941.3pg/mL (0-738) White Blood Count 4.7th/mm3 (3.8-10.1) Red Blood Count 4.00mil/mm3 (3.90-5.20) Hemoglobin 12.2g/dL (12.0-15.6) Hematocrit 37.9% (35.0-46.0) Mean Corpuscular Volume 94.8fL (81-100) Mean Corpuscular Hemoglobin 30.5pg (27.0-35.0) Mean Corpuscular Hemoglobin Concent 32.2% (32.0-37.0) Red Cell Distribution Width 12.2% (12.3-15.4) Platelet Count 287bil/L (150-400) Neutrophils (%) (Auto) 55.2% (40-74) Lymphocytes (%) (Auto) 31.6% (14-46) Monocytes (%) (Auto) 9.8% (4-12) Eosinophils (%) (Auto) 3.0% (0-5) Basophils (%) (Auto) 0.4% (0-3) Sodium Level 143mEq/L (134-144) Potassium Level 4.1mEq/L (3.5-5.2) Chloride Level 105mEq/L (97-108) Carbon Dioxide Level 26mmol/L (18-29) Blood Urea Nitrogen 19mg/dL (8-27) Creatinine 0.65mg/dL (0.57-1.00) Estimat Glomerular Filtration Rate 124mL/min (>59) Glucose Level 95mg/dL (60-99) Calcium Level 9.5mg/dL (8.5-10.1) Magnesium Level 2.1mg/dL (1.6-2.6) Total Bilirubin 0.2mg/dL (0.0-1.2) Aspartate Amino Transf (AST/SGOT) 13U/L (0-50) Alanine Aminotransferase (ALT/SGPT) 5U/L (0-32) Alkaline Phosphatase 80U/L (25-165) Total Protein 6.1g/dL (6.4-8.4) Albumin 3.7g/dL (3.4-5.0) Microbiology Results Name: CHICHO RINALDI Age/Sex: 87/F Attend Dr: Yohannes Ledesma MD Acct: [id number] Unit: [id number] Status: ADM IN Location: [facility] [place] 3008-1 Re02/13/17 Disch: Specimen: [id number] Collected: 02/14/17 Status: COMP Req#: [id number] Received: 02/14/17 Source: URINE CC Sp Desc : PP Jeff Dr: Jose Obrien MD Ordered: URINE CULT Procedure Result Verified Site Microbiology LOLA CULT URINE Final 02/16/17-41 Organism 1 ESCHERICHIA COLI U COLONY COUNT/QUANTITY >100,000 CFU/ml Cefazolin-predicts results for the oral agents, cefaclor,cefdinir, cefpodoximen, cefprozil, cefuroximne axetil, cephalexin and loracarbed when used for therapy of uncomplicated UTI's due to E. coli, K. pneumoniae, and Proteus mirabilis. Cefpodoxime, cefdinir and cefuroxime axetil may be tested individually because some isolates may be susceptible to these agents while testing resistant to cefazolin. (CLSI I898-E45 pg 53) 1. ESCHERICHIA COLI M.I.C Interp --------- ------ * AMOXICILLIN/CLAVULATE <=2 S * AMPICILLIN <=2 S * CEFAZOLIN (CEPHALOSPORIN) UTI 4 S * CEFEPIME <=1 S * CEFTRIAXONE <=1 S * CEFUROXIME SODIUM 4 S * CIPROFLOXACIN <=0.25 S * ERTAPENEM <=0.5 S * GENTAMICIN <=1 S * IMIPENEM <=1 S * LEVOFLOXACIN <=0.12 S * NITROFURANTOIN <=16 S * TETRACYCLINE <=1 S * TOBRAMYCIN <=1 S * TRIMETHOPRIM/SULFAMETHOXAZOLE <=20 S Discharge Medications Discharge Medications Aspirin (Aspirin) 81 Mg Tablet. 81 MG PO DAILY (Reported) Carbidopa/Levodopa 10-100 mg (Carbidopa/Levodopa 10-100 mg) 1 Ea Tab 2 EA PO TID (Reported) Carbidopa/Levodopa ER 50-200 mg (Carbidopa/Levodopa ER 50-200 mg) 1 Each Tablet.er 1 EACH PO HS Prescribed by: JUNIE ALMENDAREZ DO Cefdinir (Cefdinir) 300 Mg Capsule 300 MG PO BID Prescribed by: STACEY HEMPHILL MD Cyanocobalamin (Vitamin B12) 500 Mcg Tablet 1,000 MCG PO DAILY (Reported) Donepezil (Donepezil) 10 Mg Tablet 10 MG PO DAILY (Reported) Fluticasone Propionate (Fluticasone Propionate Nasal) 16 Gm [place].susp 1 SPRAY NASAL HS (Reported) 1 spray in each nostril Lorazepam (Lorazepam) 0.5 Mg Tablet 0.25 MG PO HS (Reported) Nystatin (Nystatin) 100,000 Unit/1 Ml Oral.susp 500,000 UNIT PO PCHS Prescribed by: STACEY HEMPHILL MD Oxybutynin Chloride ER (Oxybutynin Chloride ER) 5 Mg Tab.er.24 5 MG PO QPM ( Reported) Pramipexole Dihydrochloride (Mirapex) 0.25 Mg Tablet 0.25 MG PO HS (Reported) Sertraline HCl (Zoloft) 25 Mg Tablet 25 MG PO DAILY (Reported) As needed Acetaminophen (Acetaminophen) 325 Mg Tablet 650 MG PO Q4H PRN PRN For Pain ( Reported) Albuterol HFA (Proair HFA) 8.5 Gm Hfa.aer.ad 1 PUFFS INHALATION Q4H PRN PRN For Shortness of Breath (Reported) Sennosides (Senna) 8.6 Mg Tablet 17.2 MG PO BID PRN PRN For Constipation Prescribed by: STACEY HEMPHILL MD Followup Plan Disposition: Vision is being discharged home with home health as she is insistent on not going to a jail facility. Discharge Diet: Heart Healthy Discharge Activity: No restrictions (Patient may resume her usual activities gradually as tolerated.) Follow-up Provider: Domo Villa MD Follow-up with PCP in: 1 week Time spent Time spent on discharging this patient was greater than 35 minutes, over half of which was involved in counseling and coordination of care. Beka Hemphill MD Feb 19, 2017 22:18
== END 2017-02-19 13:10 | disposition home or self-care (01) | DRG 189 ==
LOC: SED 20:22 → MPC 23:56
PROVIDERS: ADMIT Hospitalist; ATTEND Hospitalist
PROC: 4A033R1 Measurement of Arterial Saturation, Peripheral, Percutaneous Approach (ICD-10-PCS; principal; 2017-02-13)
DX: J96.01 Acute respiratory failure with hypoxia (principal); N39.0 Urinary tract infection, site not specified; Z86.73 Personal history of transient ischemic attack (TIA), and cerebral infarction without residual deficits; Z86.711 Personal history of pulmonary embolism; Z79.82 Long term (current) use of aspirin; Z87.891 Personal history of nicotine dependence; G20 Parkinson's disease; F32.9 Major depressive disorder, single episode, unspecified; E53.8 Deficiency of other specified B group vitamins; E87.6 Hypokalemia; Z66 Do not resuscitate; Z91.81 History of falling; R53.1 Weakness; R00.1 Bradycardia, unspecified; B96.20 Unspecified Escherichia coli [E. coli] as the cause of diseases classified elsewhere

== ENCOUNTER 2017-02-20 23:07 | Emergency (ER) | payer MEDICARE ==
[~2017-02-20] VITALS: Ht 152.4 cm; Wt 56.8 kg
[~2017-02-20 23:07] MED LIST changes: +ACET325T51 PO; -ACET650T50 PO; +ALBU8.5H2 INHALATION; -ALBU8.5H4 IH; +CEFD300C3 PO; +CYAN500 PO; -Cyanocobalamin PO; +DONE10TA42 PO; +FLUT16SP NASAL; -MOME17SP NS; +NYST1000 PO; +OXYB5TAB PO; +SENN-133 PO
[2017-02-20 23:21] VITALS: BP 167/77; PULSE 57; RESP 20; O2SAT 100
--- NOTE | 2017-02-20 23:21 | ED.REPORT ---
HPI-General Illness Date of Service Feb 20, 2017 ED Provider: Dr. Tao Fletcher M.D. An 87 year old female with a medical history including Parkinson's disease, PE, anxiety, generalized weakness, and TIA presents to the ED via EMS reporting shortness of breath onset "months ago." Associated symptoms include near-syncope , generalized weakness, nausea, vomiting, and chest tightness. The patient repeatedly states that she is "choking." She denies fever or other symptoms. EMS found the patient with a BP of 168/74 and otherwise normal vital signs. She was discharged from the hospital yesterday after a six night stay for acute hypoxic respiratory failure, Parkinson's disease, and UTI. She was discharged on home health and was insistent on not going to a [facility] facility. The patient is a poor historian. She presents anxious and hyperventilating but in no respiratory distress. Nursing Notes Stated Complaint: GENERALIZED WEAKNESS Chief Complaint: Respiratory Complaints Nursing Notes Reviewed: Yes Allergies: Uncoded Allergies: MEDICAL DYE (Adverse Reaction, Severe, Dizziness, "I didn't feel good", ) States allergic to "medical dye" but denies allergy to iodine Scheduled Aspirin (Aspirin) 81 Mg Tablet.dr 81 MG PO DAILY Carbidopa/Levodopa 10-100 mg (Carbidopa/Levodopa 10-100 mg) 1 Ea Tab 2 EA PO TID Carbidopa/Levodopa ER 50-200 mg (Carbidopa/Levodopa ER 50-200 mg) 1 Each Tablet.er 1 EACH PO HS Cefdinir (Cefdinir) 300 Mg Capsule 300 MG PO BID Cyanocobalamin (Vitamin B12) 500 Mcg Tablet 1,000 MCG PO DAILY Donepezil (Donepezil) 10 Mg Tablet 10 MG PO DAILY Fluticasone Propionate (Fluticasone Propionate Nasal) 16 Gm [place].susp 1 SPRAY NASAL HS 1 spray in each nostril Lorazepam (Lorazepam) 0.5 Mg Tablet 0.25 MG PO HS Nystatin (Nystatin) 100,000 Unit/1 Ml Oral.susp 500,000 UNIT PO PCHS Oxybutynin Chloride ER (Oxybutynin Chloride ER) 5 Mg Tab.er.24 5 MG PO QPM Pramipexole Dihydrochloride (Mirapex) 0.25 Mg Tablet 0.25 MG PO HS Sertraline HCl (Zoloft) 25 Mg Tablet 25 MG PO DAILY Scheduled PRN Acetaminophen (Acetaminophen) 325 Mg Tablet 650 MG PO Q4H PRN PRN For Pain Albuterol HFA (Proair HFA) 8.5 Gm Hfa.aer.ad 1 PUFFS INHALATION Q4H PRN PRN For Shortness of Breath Sennosides (Senna) 8.6 Mg Tablet 17.2 MG PO BID PRN PRN For Constipation General Time Seen by MD: 23:20 Chief Complaint Breathing problem Hx Obtained From: Patient Arrived By: Ambulance Sudden in Onset?: No Onset Occurred: More than a week ago... ("Months ago") Symptom Duration: Since onset Location: : Chest Quality: Painful (Tightness) Severity: Current: Moderate Severity: Maximum: Moderate Pertinent Negative: Relieved by nothing Recent Healthcare: Recent doctor visit, Recent hospitalization Similar Sx Previous: Yes Past Medical History Past Medical History Notes: PCP: Dr. Villa Last admitted October 2014 Past Medical History 1. Parkinson's disease 2. Hx of BL Pulmonary Embolism 2008, showing elective surgery-no longer on warfarin 3. Anxiety 4. Hx of generalized weakness 5. Orthostatic hypotension 3 possible TIA in March 2014 Reports: Transient ischemic attack Past Surgical History Hiatal Hernia Repair 2008 Cataract surgery Carpal Tunnel release Lipoma removal from back Family History Father of old age at 85 as far as patient knows Mother of pneumonia at age 76 Smoking History Former Smoker Social History Alcohol Use: Denies alcohol use Drug Use: Denies drug use Other Social History: Lives alone, Local resident Ambulatory Status Independent Review of Systems + Near-syncope, "choking" Full Review of Systems Constitutional: Reports: Weakness - generalized, Denies: Fever Respiratory: Reports: Shortness of breath, Denies: Non-productive cough Cardiovascular: Reports: Chest pain (Tightness) GI: Reports: Nausea, Vomiting, Denies: Diarrhea Psychiatric: Reports: Anxiety (with hyperventilation) Complete sys rev & neg: except as marked. Physical Exam Vital Signs Vital Signs Date Time Temp Pulse Resp B/P Pulse Ox O2 Delivery O2 Flow Rate FiO2 02/21/17 01:17 53 22 172/53 100 Room Air 02/21/17 00:15 56 22 163/50 100 Room Air 02/20/17 23:21 36.2 57 20 167/77 100 Room Air Initial VS: Reviewed Head / Eyes: Atraumatic, Normocephalic ENT: Conjunctiva normal, No scleral icterus Neck: Supple, Full range of motion Skin: Warm, Dry General/Constitutional: Awake, Alert Behavior: Positive: Anxious, Hyperventilating Respiratory / Chest: Breath sounds NL, Breath sounds = bilat, No respiratory distress Cardiovascular: Heart rate NL, Regular rhythm, Heart sounds NL, No gallop, No murmurs, No rubs Abdomen: Soft, Non-tender, BS normoactive Interpretation & Diagnostics Lab Results Interpretation Result Diagram: 02/20/17 2315 02/20/17 2315 Test 02/20/17 23:15 02/21/17 00:41 White Blood Count 6.0th/mm3 (3.8-10.1) Red Blood Count 4.13mil/mm3 (3.90-5.20) Hemoglobin 12.7g/dL (12.0-15.6) Hematocrit 39.1% (35.0-46.0) Mean Corpuscular Volume 94.7fL (81-100) Mean Corpuscular Hemoglobin 30.8pg (27.0-35.0) Mean Corpuscular Hemoglobin Concent 32.5% (32.0-37.0) Red Cell Distribution Width 12.6% (12.3-15.4) Platelet Count 299bil/L (150-400) Neutrophils (%) (Auto) 68.3% (40-74) Lymphocytes (%) (Auto) 18.1% (14-46) Monocytes (%) (Auto) 11.6% (4-12) Eosinophils (%) (Auto) 1.3% (0-5) Basophils (%) (Auto) 0.5% (0-3) D-Dimer 1.19mg/L FEU (<0.50) Sodium Level 141mEq/L (134-144) Potassium Level 4.0mEq/L (3.5-5.2) Chloride Level 101mEq/L (97-108) Carbon Dioxide Level 23mmol/L (18-29) Blood Urea Nitrogen 27mg/dL (8-27) Creatinine 1.08mg/dL (0.57-1.00) Estimat Glomerular Filtration Rate 69mL/min (>59) Glucose Level 115mg/dL (60-99) Calcium Level 9.4mg/dL (8.5-10.1) Magnesium Level 2.3mg/dL (1.6-2.6) Total Bilirubin 0.3mg/dL (0.0-1.2) Aspartate Amino Transf (AST/SGOT) 19U/L (0-50) Alanine Aminotransferase (ALT/SGPT) 5U/L (0-32) Alkaline Phosphatase 90U/L (25-165) Troponin T 0.010ug/L (0.0-0.011) Total Protein 7.0g/dL (6.4-8.4) Albumin 4.2g/dL (3.4-5.0) Urine Color Yellow (YELLOW) Urine Appearance Hazy (CLEAR,HAZY) Urine pH 7.0 (5.0-8.0) Urine Specific [place] 1.010 (1.003-1.035) Urine Protein Negativemg/dL (NEG,TRACE) Urine Glucose (UA) Negativemg/dL (NEGATIVE) Urine Ketones 15mg/dL (NEGATIVE) Urine Occult Blood Negative (NEGATIVE) Urine Nitrite Negative (NEGATIVE) Urine Bilirubin Negative (NEGATIVE) Urine Urobilinogen Normalmg/dL (NORMAL) Urine Leukocyte Esterase Small (NEGATIVE) Urine RBC 0-2/hpf (0-2) Urine WBC 6-10/hpf (0-5) Urine Epithelial Cells Moderate/hpf (NONE-MOD) Urine Crystals None seen (NONE SEEN) Urine Bacteria Few/hpf (NONE-FEW) Urine Hyaline Casts None/lpf (NONE) Urine Granular Casts None seen (NONE SEEN) Urine Waxy Casts None seen (NONE SEEN) Urine Red Blood Cell Casts None seen (NONE SEEN) Urine White Blood Cell Casts None seen (NONE SEEN) Urine Mucus None seen (None Seen) Urine Trichomonas None seen (NONE SEEN) Urine Yeast None (NONE SEEN) Urinalysis Comment None Urine Culture Reflexed Indicated ECG Interpretation ECG Interpretation: Sinus rhythm rate 61 Left anterior fascicular block Left ventricular hypertrophy Prolonged QT interval No change from 02/13/17 Nothing acute Time: 23:46 Interpreted by: ED physician X-Ray Chest Interpretation Chest Xray Interpretation: No acute findings, no change from 02/13/17 View: Portable, 1 view Interpretation / Wet Read by: Wet read ED physician Re-Eval/Medical Decision Med Decision/Clinical Course 87-year-old female complaining of shortness of breath. Visibly hyperventilating with normal oxygen saturations and clear lungs on arrival. Patient was just in the hospital and had an extensive workup for bradycardia and was also treated for a Escherichia coli urinary tract infection. The patient recommended disposition from her last admission was to [facility] facility, she refused this. Tonight she appears to be anxious and after an extensive evaluation did not reveal an acute medical issue she is quite reluctant to go home. I note that she had an elevated d-dimer tonight, she had an elevated d-dimer and her last admission and had negative CT at that time. The patient did improve with lorazepam. We discussed the case with her primary care provider who knows her well and reports that this anxiety is not new. Patient was advised we did not have the indication for hospitalization ton[place] and that she would be discharged. Dr. Lundy is aware of this and will see her soon. She was noted to have some bradycardia here which was not symptomatic. Source of Hx: Old records Time of Eval: 01:23 Patient Status: Condition improved Re-Evaluation/Progress Note: Patient is feeling better but is still concerned about her breathing. Discussed with patient x-ray and lab results, diagnosis, and plan for discharge. She adamantly requests to be placed in a [facility]dc rather than discharged home. Time of Eval: 02:39 Patient Status: Condition improved Re-Evaluation/Progress Note: Discussed with patient all results, consults, diagnosis, and plan for discharge. Follow-up and return to the ER instructions given. Patient agrees with plan for care and all questions were addressed. Consultation #1: Referral / Consult Name: Antonina Holbrook DO Consulted With: Hospitalist Call Returned at: 01:52 Ophthalmic Surgical Assistant: Agrees with eval, Agrees with plan Note: Discussed patient's case. Dr. Holbrook recommends discharge Consultation #2: Referral / Consult Name: Domo Villa MD Consulted With: Primary care physician Call Returned at: 02:24 Ophthalmic Surgical Assistant: Will see in office, Agrees with eval, Agrees with plan Counseled Regarding: Diagnosis, Lab results, Need for follow-up, When/why to return to ED Discharge & Departure Primary Impression: Hyperventilation Additional Impression: Anxiety Disposition: Home Discharge Condition All VS Reviewed: Yes Condition: Improved Patient Instructions: Hyperventilation (ED) Additional Instructions: ED evaluation included interview, exam, labs, review of past records, ecg, discussion with your primary care provider. There is not an acute medical issue requiring hospitalization. If you now wish to be placed in a [facility] facility, contact Dr Villa for assistance. Continue previous home medications including lorazepam as needed. Referrals: Domo Villa MD (PCP) Scribe Attestation Portions of this note were transcribed by Nati Harris. I, Dr. Fletcher, personally performed the history, physical exam, and medical decision-making; I reviewed and confirmed the accuracy of the information in the transcribed note. Signed by: Mundo De La Cruz, 02/21/2017, 02:59 copies to: Domo Villa MD, Donald L MD Feb 20, 2017 23:21 NATI HARRIS February 21, 2017 00:01
[2017-02-20 23:30] LABS: BASOPHILS % (AUTO) 0.5 % (0-3); EOSINOPHILS % (AUTO) 1.3 % (0-5); MONOCYTES % (AUTO) 11.6 % (4-12); Mean Corpuscular Hemoglobin 30.8 pg (27.0-35.0); Mean Corpuscular Volume 94.7 fL (81-100); NEUTROPHILS % (AUTO) 68.3 % (40-74)
[2017-02-20 23:53] LABS: Platelet Count 299 bil/L (150-400)
[2017-02-21 00:11] LABS: Magnesium 2.3 mg/dL (1.6-2.6)
[2017-02-21 00:15] VITALS: BP 163/50; PULSE 56; RESP 22; O2SAT 100
[2017-02-21 00:16] LABS: TROPONIN T 0.01 ug/L (0.0-0.011)
[2017-02-21 01:00] LABS: APPEARANCE,URINE HAZY (CLEAR,HAZY); COLOR,URINE YELLOW (YELLOW); OCCULT BLOOD,URINE NEGATIVE (NEGATIVE); UROBILINOGEN,URINE NORMAL (NORMAL)
[2017-02-21 01:17] VITALS: BP 172/53; PULSE 53; RESP 22; O2SAT 100
[2017-02-21 03:44] VITALS: BP 120/75; PULSE 63; RESP 18; O2SAT 100
--- NOTE | 2017-02-21 09:08 | DRSVH ---
PROCEDURE: X-RAY CHEST ONE VIEW, PORTABLE ([id number]) INDICATIONS: CP/SOB TECHNIQUE: One view of the chest was acquired. COMPARISON: [facility], CT, CT ANGIO CHEST PE, 06/11/2016, 16:08. [facility] , CT, CT ANGIO CHEST PE, 02/13/2017, 21:38. [facility], CR, CHEST 2VW, 11/19/2014, 7:46. [facility], CR, XR CHEST 1VW (PORTABLE), 02/13/2017, 20:46. FINDINGS: Surgical changes and devices: None. Lungs and pleura: No pleural effusions or pneumothorax. Diffuse interstitial opacity present simila r to prior examination. No focal lung consolidation. Mediastinum: Mediastinal contours appear normal. Heart size is normal. Bones and chest wall: No suspicious bony lesions. Overlying soft tissues appear unremarkable. IMPRESSION: Diffuse bilateral interstitial opacity similar to prior examination Dictated by: Bhupendra Melo RRA Interpreted: Venita Barrientos MD on 02/21/2017 at 9:06 Transcribed by: HAL on 02/21/2017 at 9:07 Approved by: Venita Barrientos M.D. on 02/21/2017 at 17:02
== END 2017-02-21 03:44 | disposition home or self-care (01) ==
LOC: SED 23:07 → EDBD 23:07 → SED 02-21 03:44
DX: R06.4 Hyperventilation (principal); F41.9 Anxiety disorder, unspecified; M62.81 Muscle weakness (generalized); R55 Syncope and collapse; R11.2 Nausea with vomiting, unspecified; G20 Parkinson's disease; Z86.711 Personal history of pulmonary embolism; Z86.73 Personal history of transient ischemic attack (TIA), and cerebral infarction without residual deficits; Z87.440 Personal history of urinary (tract) infections; Z87.09 Personal history of other diseases of the respiratory system; Z87.891 Personal history of nicotine dependence; Z79.82 Long term (current) use of aspirin; Z88.8 Allergy status to other drugs, medicaments and biological substances
CPT/HCPCS: 36415; 71010; 80053; 81000; 82948; 83735; 84484; 85025; 85378; 87086; 87088; 93005; 96374; 99285; J2060

== ENCOUNTER 2017-03-12 20:21 | Inpatient (IN) | payer MEDICARE ==
[~2017-03-12] VITALS: Ht 152.4 cm; Wt 49.2 kg
[2017-03-12 20:31] VITALS: BP 138/61; PULSE 57; RESP 20; O2SAT 96
--- NOTE | 2017-03-12 20:34 | ED.REPORT ---
HPI-Trauma Minor / Fall Date of Service March 12, 2017 ED Provider: Dr. Imtiaz Daley D.O. An 87 year old female with a medical history including Parkinson's disease, PE, anxiety, and possible TIA presents to the ED via EMS with right hip pain after a mechanical ground level fall just prior to arrival. The patient did hit her head in the fall but did not lose consciousness. She was on the ground for 30 minutes before calling EMS. EMS found the patient awake, alert, and oriented with an externally rotated and foreshortened right leg. She was given 100mcg Fentanyl and 2mg Morphine en route. The patient also reports shortness of breath currently. She denies weakness, numbness, or other symptoms. The patient was recently in the ED on 02/20/17 with hyperventilation and anxiety. Nursing Notes Stated Complaint: GLF, RIGHT HIP PAIN Chief Complaint: Multiple Trauma/Fall Nursing Notes Reviewed: Yes Allergies: Uncoded Allergies: MEDICAL DYE (Adverse Reaction, Severe, Dizziness, "I didn't feel good", ) States allergic to "medical dye" but denies allergy to iodine Scheduled Aspirin (Aspirin) 81 Mg Tablet.dr 81 MG PO DAILY Carbidopa/Levodopa 10-100 mg (Carbidopa/Levodopa 10-100 mg) 1 Ea Tab 2 EA PO TID Carbidopa/Levodopa ER 50-200 mg (Carbidopa/Levodopa ER 50-200 mg) 1 Each Tablet.er 1 EACH PO HS Cefdinir (Cefdinir) 300 Mg Capsule 300 MG PO BID Cyanocobalamin (Vitamin B12) 500 Mcg Tablet 1,000 MCG PO DAILY Donepezil (Donepezil) 10 Mg Tablet 10 MG PO DAILY Fluticasone Propionate (Fluticasone Propionate Nasal) 16 Gm [place].susp 1 SPRAY NASAL HS 1 spray in each nostril Lorazepam (Lorazepam) 0.5 Mg Tablet 0.25 MG PO HS Nystatin (Nystatin) 100,000 Unit/1 Ml Oral.susp 500,000 UNIT PO PCHS Oxybutynin Chloride ER (Oxybutynin Chloride ER) 5 Mg Tab.er.24 5 MG PO QPM Pramipexole Dihydrochloride (Mirapex) 0.25 Mg Tablet 0.25 MG PO HS Sertraline HCl (Zoloft) 25 Mg Tablet 25 MG PO DAILY Scheduled PRN Acetaminophen (Acetaminophen) 325 Mg Tablet 650 MG PO Q4H PRN PRN For Pain Albuterol HFA (Proair HFA) 8.5 Gm Hfa.aer.ad 1 PUFFS INHALATION Q4H PRN PRN For Shortness of Breath Sennosides (Senna) 8.6 Mg Tablet 17.2 MG PO BID PRN PRN For Constipation General Time Seen by MD: 20:33 Chief Complaint Fall, Other (Right Hip Pain) Hx Obtained From: Patient Arrived By: Ambulance Onset Occurred: 1 - 4 hours ago Symptom Duration: Since onset Caused by: Fall on ground Location: Hip right Quality: Painful Severity: Current: Moderate Severity: Maximum: Moderate Pertinent Negative: Relieved by nothing Context: Immunizations Tetanus up to date Recent Healthcare: No recent doctor visit Past Medical History Past Medical History Notes: PCP: Dr. Villa Last admitted October 2014 Past Medical History 1. Parkinson's disease 2. Hx of BL Pulmonary Embolism 2008, showing elective surgery-no longer on warfarin 3. Anxiety 4. Hx of generalized weakness 5. Orthostatic hypotension 3 possible TIA in March 2014 Reports: Transient ischemic attack Past Surgical History Hiatal Hernia Repair 2008 Cataract surgery Carpal Tunnel release Lipoma removal from back Family History Father of old age at 85 as far as patient knows Mother of pneumonia at age 76 Smoking History Former Smoker Social History Alcohol Use: Denies alcohol use Drug Use: Denies drug use Other Social History: Lives alone, Local resident Ambulatory Status Independent Review of Systems Review of Systems Note: + Right leg externally rotated and foreshortened Constitutional: Denies: Fever Respiratory: Denies: Non-productive cough, Shortness of breath Musculoskeletal: Reports: Joint pain (Right hip) Neurologic: Denies: Change LOC, Numbness, Weakness Complete sys rev & neg: except as marked. GI: Denies: Diarrhea, Vomiting Physical Exam Initial Vital Signs Vital Signs (First) Date Time Temp Pulse Resp B/P Pulse Ox O2 Delivery O2 Flow Rate FiO2 03/12/17 20:31 36.6 57 20 138/61 96 Room Air Initial VS: Reviewed ENT: Conjunctiva normal, No scleral icterus Respiratory: Breath sounds normal, Clear to auscultation, No respiratory distress Cardiovascular: Regular rate & rhythm, Heart sounds normal Abdomen / GI: Soft, Non-tender Skin: Warm, Dry, No cyanosis Neurologic: Alert, Oriented, Nonfocal Psychiatric: Mood/affect normal, Behavior normal, Normal thought content General/Constitutional: Awake, Alert Neck: Atraumatic Neck / Muscle Tenderness: Positive: Midline tenderness mid Head / Eyes: Atraumatic, Normocephalic Back: Atraumatic, Inspection NL, Non-tender, No midline vertebral tend Lower Extremity / Pelvis / MS: Neurologic intact (Distal sensation and motor intact), Vascular intact (Intact distal pulses) Right Hip: Positive: Leg externally rotated, Leg shortened, Tenderness present... Interpretation & Diagnostics Lab Results Interpretation Result Diagram: 03/12/17212003/12/172120 Test 03/12/17 21:21 White Blood Count 10.6th/mm3 (3.8-10.1) Red Blood Count 3.85mil/mm3 (3.90-5.20) Hemoglobin 11.7g/dL (12.0-15.6) Hematocrit 36.8% (35.0-46.0) Mean Corpuscular Volume 95.6fL (81-100) Mean Corpuscular Hemoglobin 30.4pg (27.0-35.0) Mean Corpuscular Hemoglobin Concent 31.8% (32.0-37.0) Red Cell Distribution Width 13.1% (12.3-15.4) Platelet Count 272bil/L (150-400) Neutrophils (%) (Auto) 81.2% (40-74) Lymphocytes (%) (Auto) 8.7% (14-46) Monocytes (%) (Auto) 8.4% (4-12) Eosinophils (%) (Auto) 0.8% (0-5) Basophils (%) (Auto) 0.7% (0-3) Prothrombin Time 11.7sec (8.1-12.5) Prothromb Time International Ratio 1.09ratio Sodium Level 142mEq/L (134-144) Potassium Level 3.6mEq/L (3.5-5.2) Chloride Level 104mEq/L (97-108) Carbon Dioxide Level 25mmol/L (18-29) Blood Urea Nitrogen 19mg/dL (8-27) Creatinine 0.82mg/dL (0.57-1.00) Estimat Glomerular Filtration Rate 95mL/min (>59) Glucose Level 119mg/dL (60-99) Calcium Level 9.1mg/dL (8.5-10.1) Total Bilirubin 0.4mg/dL (0.0-1.2) Aspartate Amino Transf (AST/SGOT) 13U/L (0-50) Alanine Aminotransferase (ALT/SGPT) 5U/L (0-32) Alkaline Phosphatase 85U/L (25-165) Total Protein 6.6g/dL (6.4-8.4) Albumin 3.7g/dL (3.4-5.0) Hold King Top Tube Received (Received) General Lab Results Interp 1: Labs reviewed, CBC - leukocytosis, Coag studies NL ECG Interpretation ECG Interpretation: Sinus rhythm rate 58 Left anterior fascicular block LVH Prolonged QT interval Time: 23:07 Interpreted by: ED physician X-Ray Chest Interpretation Chest Xray Interpretation: IMPRESSION: No acute pulmonary process. Dictated by: Venita Barrientos M.D. on 03/12/2017 at 21:27 View: Portable, 1 view Interpretation / Wet Read by: Interpret - Radiologist X-Ray Interpretation Xray Interpretation: IMPRESSION: Right intertrochanteric fracture as above. Dictated by: Venita Barrientos M.D. on 03/12/2017 at 20:59 X-Ray Ordered: Pelvis, Hip right Interpretation / Wet Read by: Interpret - Radiologist CT Head Interpretation IMPRESSION: 1. No acute intracranial process. 2. Moderate atrophy and chronic microvascular ischemic changes. Dictated by: Venita Barrientos M.D. on 03/12/2017 at 21:54 Study: Head CT no contrast Interpretation / Wet Read by: Interpret - Radiologist CT C-Spine Interpretation IMPRESSION: Multilevel degenerative changes without visualized fracture. Dictated by: Venita Barrientos M.D. on 03/12/2017 at 21:55 Study type: CT no contrast Interpretation / Wet Read by: Interpret - Radiologist Re-Eval/Medical Decision Source of Hx: Old records Re-Evaluation/Progress : Time of Eval: 23:46 Patient Status: Condition improved Re-Evaluation/Progress Note: Discussed with patient x-ray, CT, and lab results, diagnosis, and plan for admit. Patient agrees with plan for care and all questions were addressed. Consultation #1: Referral / Consult Name: Beka Peralta MD Consulted With: Orthopedic Call Returned at: 22:13 Manager Patient: Will see patient, Agrees with eval, Agrees with plan Note: Discussed patient's case. Consultation #2: Referral / Consult Name: Yohannes Ledesma MD Consulted With: Hospitalist Call Returned at: 22:15 Manager Patient: Agrees with eval, Agrees with plan, Accepts admit Counseled Regarding: Diagnosis, Lab results, Need for admission Discharge & Departure Impression: Primary Impression: Closed right hip fracture Encounter type: initial encounter Qualified Code: S72.001A - Fracture of unspecified part of neck of right femur, initial encounter for closed fracture Additional Impression: Fall from ground level Disposition: ADMITTED TO HOSPITAL Discharge Condition All VS Reviewed: Yes Condition: Improved Referrals: Domo Villa MD (PCP) Orianaibmelissa Attestation Portions of this note were transcribed by Nati Harris. I, Dr. Daley, personally performed the history, physical exam, and medical decision-making; I reviewed and confirmed the accuracy of the information in the transcribed note. Signed by: Mundo De La Cruz, 03/13/2017, 01:35 copies to: Domo Villa MD, Todd P DO March 12, 2017 20:34 NATI HARRIS March 12, 2017 21:21
--- NOTE | 2017-03-12 21:02 | DRSVH ---
PROCEDURE: X-RAY PELVIS W/LAT HIP (RT) ([id number]) INDICATIONS: fall and pain TECHNIQUE: AP pelvis with lateral view(s) of the right hip(s). COMPARISON: None. FINDINGS: Bones: There is a right intertrochanteric fracture with dislocation and angulation. Soft tissues: The visualized bowel gas pattern is normal. No suspicious soft tissue calcifications. IMPRESSION: Right intertrochanteric fracture as above. Dictated by: Venita Barrientos M.D. on 03/12/2017 at 20:59 Approved by: Venita Barrientos M.D. on 03/12/2017 at 21:00
[2017-03-12] MEDS ORDERED: HYDROmorphone 1 mg/mL Inj IVPUSH PRN (21:10)
[2017-03-12] MEDS ORDERED: Ondansetron 2 mg/mL 2 mL Inj IVPUSH PRN ×2 (21:10→22:25)
--- NOTE | 2017-03-12 21:30 | DRSVH ---
PROCEDURE: X-RAY CHEST ONE VIEW, PORTABLE ([id number]) INDICATIONS: fall, hip fracture TECHNIQUE: One view of the chest was acquired. COMPARISON: [facility], CR, XR CHEST 1VW (PORTABLE), 02/13/2017, 20:46. FINDINGS: Surgical changes and devices: None. Lungs and pleura: No pleural effusions or pneumothorax. Lungs are clear. Chronic interstitial blankenship ges are present. Mediastinum: Mediastinal contours appear normal. Heart size is normal. Bones and chest wall: No suspicious bony lesions. Overlying soft tissues appear unremarkable. IMPRESSION: No acute pulmonary process. Dictated by: Venita Barrientos M.D. on 03/12/2017 at 21:27 Approved by: Venita Barrientos M.D. on 03/12/2017 at 21:28
[2017-03-12 21:37] LABS: BASOPHILS % (AUTO) 0.7 % (0-3); EOSINOPHILS % (AUTO) 0.8 % (0-5); MONOCYTES % (AUTO) 8.4 % (4-12); Mean Corpuscular Hemoglobin 30.4 pg (27.0-35.0); Mean Corpuscular Volume 95.6 fL (81-100); NEUTROPHILS % (AUTO) 81.2 % (40-74); Platelet Count 272 bil/L (150-400)
[2017-03-12 21:56] LABS: INR 1.09 ratio
--- NOTE | 2017-03-12 21:57 | DRSVH ---
PROCEDURE: CT BRAIN WITHOUT CONTRAST ([id number]) INDICATIONS: fall, hit head, broke hip, neck pain TECHNIQUE: Noncontrast 4.5 mm thick angled axial sections acquired from the foramen magnum to the vertex, with c oronal reformats. COMPARISON: [facility], CT, BRAIN W/O CONTRAST, 09/27/2014, 8:00. FINDINGS: Image quality: Excellent. CSF spaces: Basal cisterns are patent. No extra-axial fluid collections. The ventricles are symmet nino in size and shape. Brain: No intracranial bleeds or masses. There is cerebral volume loss for age, with resultant vent ricular and sulcal prominence. There are periventricular and deep white matter chronic small vessel ischemic changes. There is intracranial internal carotid artery atherosclerosis. Skull and face: Calvarium and visualized facial bones appear intact, without suspicious lesions. Sinuses: Visualized sinuses and mastoids are clear. IMPRESSION: 1. No acute intracranial process. 2. Moderate atrophy and chronic microvascular ischemic changes. Dictated by: Venita Barrientos M.D. on 03/12/2017 at 21:54 Approved by: Venita Barrientos M.D. on 03/12/2017 at 21:55
--- NOTE | 2017-03-12 21:59 | DRSVH ---
PROCEDURE: CT CERVICAL SPINE WITHOUT CONTRAST ([id number]) INDICATIONS: fall, hit head, broke hip, neck pain TECHNIQUE: Noncontrast 3 mm thick sections acquired from the skull base to the T4 level. Sagittal and coronal r eformats were then constructed. For radiation dose reduction, the following was used: automated exp osure control, adjustment of mA and/or kV according to patient size. COMPARISON: None. FINDINGS: Image quality: Excellent. Bones: No fractures or dislocations. Visualized superior ribs are intact. Multilevel degenerative changes are present including osseous fusion at C5-6. Severe disc space narrowing is present at C4-5 and C6-7. Soft tissues: Prevertebral soft tissues are normal in thickness. No paravertebral hematomas. No ap ical pneumothoraces. IMPRESSION: Multilevel degenerative changes without visualized fracture. Dictated by: Venita Barrientos M.D. on 03/12/2017 at 21:55 Approved by: Venita Barrientos M.D. on 03/12/2017 at 21:58
[2017-03-12] MEDS ORDERED: Polyethylene Glycol (PEG) 17 Gm Powder PO PRN (22:25)
[2017-03-12] MEDS ORDERED: Alum-Mag Hydrox-Simeth 30 mL Suspension PO PRN (22:25)
--- NOTE | 2017-03-12 22:49 | PCM.CONORT ---
Subjective Date of Surgery: March 13, 2017 Surgeon Admitting Provider: Attending Provider: Primary Care Physician:Domo Villa MD Other Provider: Reason for Consultation: right hip pain Allergy Allergies: Uncoded Allergies: MEDICAL DYE (Adverse Reaction, Severe, Dizziness, "I didn't feel good", ) States allergic to "medical dye" but denies allergy to iodine Medications Acetaminophen (Acetaminophen) 325 Mg Tablet 650 MG PO Q4H PRN PRN For Pain ( Reported) Albuterol HFA (Proair HFA) 8.5 Gm Hfa.aer.ad 1 PUFFS INHALATION Q4H PRN PRN For Shortness of Breath (Reported) Aspirin (Aspirin) 81 Mg Tablet.dr 81 MG PO DAILY (Reported) Carbidopa/Levodopa 10-100 mg (Carbidopa/Levodopa 10-100 mg) 1 Ea Tab 2 EA PO TID (Reported) Carbidopa/Levodopa ER 50-200 mg (Carbidopa/Levodopa ER 50-200 mg) 1 Each Tablet.er 1 EACH PO HS Prescribed by: JUNIE ALMENDAREZ DO Cefdinir (Cefdinir) 300 Mg Capsule 300 MG PO BID Prescribed by: STACEY PINTO MD Cyanocobalamin (Vitamin B12) 500 Mcg Tablet 1,000 MCG PO DAILY (Reported) Donepezil (Donepezil) 10 Mg Tablet 10 MG PO DAILY (Reported) Fluticasone Propionate (Fluticasone Propionate Nasal) 16 Gm [place].susp 1 SPRAY NASAL HS (Reported) 1 spray in each nostril Lorazepam (Lorazepam) 0.5 Mg Tablet 0.25 MG PO HS (Reported) Nystatin (Nystatin) 100,000 Unit/1 Ml Oral.susp 500,000 UNIT PO PCHS Prescribed by: STACEY PINTO MD Oxybutynin Chloride ER (Oxybutynin Chloride ER) 5 Mg Tab.er.24 5 MG PO QPM ( Reported) Pramipexole Dihydrochloride (Mirapex) 0.25 Mg Tablet 0.25 MG PO HS (Reported) Sennosides (Senna) 8.6 Mg Tablet 17.2 MG PO BID PRN PRN For Constipation Prescribed by: STACEY PINTO MD Sertraline HCl (Zoloft) 25 Mg Tablet 25 MG PO DAILY (Reported) History History of ENT Problems?: Yes HEENT History: Positive for:: Cataracts (removed in 2006 HAD LENSES PLACED) Sinus Problem (having nose bleeds about 2x a week) Denies:: Dysphagia Denture Type: None Teeth Condition: Within Normal Limits Hx of Heart Problems?: Yes Cardiovascular History: Positive for:: Edema (Feet occasionally) Irregular Heartbeat Denies:: Cardiac Surgery Chest Pain Congestive Heart Failure Heart Murmur Hypertension Pacemaker Thrombophlebitis Hx of Respiratory Problem?: Yes Respiratory History: Positive for:: Dyspnea (SOB for the last 3 years) Pneumonia Denies:: Asthma COPD Chest Surgery Emphysema Hemoptysis Tuberculosis Hx Neurologic Problems?: Yes Neurological History: Positive for:: Dizziness Parkinson's Disease Denies:: Alzheimer's Disease CVA Dementia Headaches Seizures Hx of GI Problems?: Yes Hx of Problems?: Yes Genitourinary History: Positive for:: Urinary Tract Infection Denies:: HX of Hemodialysis Kidney Stones HX of Peritoneal Dialysis: No Female Hx: Denies:: Currently Endometriosis Pelvic Inflammatory Problems with Breasts? Hx Musculoskeletal Problems?: Yes Musculoskeletal History: Denies:: Back Injury Joint Replacement Musculoskeletal Trauma Other History/Comment Marian Bhatti is an 87 year old female who presents to the ER today and orthopaedic consultation requested after a fall from standing earlier today. She reports hitting her head but unsure whether or not she had LOC. She has multiple medical comorbidities including but not limited to parkinson's, history of TIA, history of PE, anxiety, GERD. She denies any other injuries or complaints today. She denies any fever, chills, chest pain at this time. She denies any previous issues to her right hip including previous hip pain. There is no reports of numbness, tingling, or weakness to the affected distal lower extremity. There is no known history of hip problems as a child/adolescent such as SCFE, Perthes, dysplasia, OI, or ligamentous laxity. The patient denies any fever, chills, nausea, vomiting, chest pain, shortness of breath, or calf tenderness. Hx of Psycho/Social Problems?: Yes Psycho Social History: Positive for:: Anxiety Denies:: Bipolar Disorder Hx Depression Suicide Attempt Hx Surgeries?: Yes (hiatal hernia, carpal tunnel, cysts removed from back) Hx Any Other Health Problems?: Yes Other History: Positive for:: Hospitalization (hiatal hernia repair & Bilateral PE 5/09, sycope/hypotension 05/06) Denies:: Cancer Endocrine Disease Thyroid Disease History Blood Transfusions: Denies:: Blood Transfuse Reaction Blood Transfusions Hx Diabetes: No Hx Alcohol Use: NoHx Substance Use: No Smoking Status: Former Smoker Have You Smoked inLast 12 mo: No Objective Exam Vital Signs & I/O Vital Sign- Last 8 Hours Date Time Temp Pulse Resp B/P Pulse Ox O2 Delivery O2 Flow Rate FiO2 03/12/17 20:31 36.6 57 20 138/61 96 Room Air Lab & Micro Results Laboratory Tests Test 03/12/17 21:21 White Blood Count 10.6th/mm3 (3.8-10.1) Red Blood Count 3.85mil/mm3 (3.90-5.20) Hemoglobin 11.7g/dL (12.0-15.6) Hematocrit 36.8% (35.0-46.0) Mean Corpuscular Volume 95.6fL (81-100) Mean Corpuscular Hemoglobin 30.4pg (27.0-35.0) Mean Corpuscular Hemoglobin Concent 31.8% (32.0-37.0) Red Cell Distribution Width 13.1% (12.3-15.4) Platelet Count 272bil/L (150-400) Neutrophils (%) (Auto) 81.2% (40-74) Lymphocytes (%) (Auto) 8.7% (14-46) Monocytes (%) (Auto) 8.4% (4-12) Eosinophils (%) (Auto) 0.8% (0-5) Basophils (%) (Auto) 0.7% (0-3) Prothrombin Time 11.7sec (8.1-12.5) Prothromb Time International Ratio 1.09ratio Sodium Level 142mEq/L (134-144) Potassium Level 3.6mEq/L (3.5-5.2) Chloride Level 104mEq/L (97-108) Carbon Dioxide Level 25mmol/L (18-29) Blood Urea Nitrogen 19mg/dL (8-27) Creatinine 0.82mg/dL (0.57-1.00) Estimat Glomerular Filtration Rate 95mL/min (>59) Glucose Level 119mg/dL (60-99) Calcium Level 9.1mg/dL (8.5-10.1) Total Bilirubin 0.4mg/dL (0.0-1.2) Aspartate Amino Transf (AST/SGOT) 13U/L (0-50) Alanine Aminotransferase (ALT/SGPT) 5U/L (0-32) Alkaline Phosphatase 85U/L (25-165) Total Protein 6.6g/dL (6.4-8.4) Albumin 3.7g/dL (3.4-5.0) Hold King Top Tube Received (Received) Result Diagram: 03/12/17212003/12/172120 Review of Systems: Constitutional: Negative, except as otherwise mentioned in the history above. Ophthalmologic: Negative, except as otherwise mentioned in the history above. Cardiovascular: Negative, except as otherwise mentioned in the history above. Respiratory: Negative, except as otherwise mentioned in the history above. Gastrointestinal: Negative, except as otherwise mentioned in the history above. Genitourinary: Negative, except as otherwise mentioned in the history above. Musculoskeletal: Negative, except as otherwise mentioned in the history above. Neurological: Negative, except as otherwise mentioned in the history above. Psychiatric: Negative, except as otherwise mentioned in the history above. Hematologic/Lymphatic: Negative, except as otherwise mentioned in the history above. Allergic/Immunologic: Negative, except as otherwise mentioned in the history above. H&P Surgical Exam Exam Musculoskeletal: CONST: WD,WN, NAD, A+OX3 OCULAR: EOMI, no conjunctivitis/icterus ENT: no deformities, scars or lesions CARDIAC: Pulse is regular. No cyanosis,clubbing,edema RESP: regular,unlabored MSK: normal light touch SPN/DPN/TN distributions. 5/5 DF/PF/Inv/Ev, 2+ DP Right HIP - scars. minimal swelling, - erythema - atrophy or asymmetry. TTP right hip GT- mild, alignment- shortened, ER ROM logroll- painful Strength ROM deferred - calf tenderness thigh circ-equal, Signs deferred 2 view xray of the right hip demonstrates a comminuted displaced right intertrochanteric femur fracture H&P Preop Plan Impression right hip intertrochanteric hip fracture Problems: Risks & Benefits * We have reviewed the risks and benefits as well as the alternatives to surgery. All questions were answered to the patient's satisfaction and a counseling note to that effect. The patient has provided informed consent. * I have counseled the patient regarding the deleterious effects that smoking during the perioperative period can have upon wound healing, infection rates, and the overall rate of complications. Plan NWB RLE NPO after midnight for OR in AM plan for right hip CRIMN DVT prophylaxis with SCD/ RONAN's hold any anticoagulation prior to surgery additional chemical DVT prophylaxis after surgery appreciate medical optimization prior to surgery pain control continue medical management per primary please call with questions Beka Peralta MD March 12, 2017 22:49
[2017-03-12 22:50] VITALS: BP 150/61; PULSE 63; RESP 20; O2SAT 100
[2017-03-12] MEDS: HYDROmorphone 1 mg/mL Inj IVPUSH PRN ×2 (22:50→22:58)
[2017-03-12 23:02] VITALS: PULSE 60; RESP 25; O2SAT 100
--- NOTE | 2017-03-12 23:12 | PCM.HPMED ---
Subjective Date of Service March 12, 2017 Primary Provider: Admitting Physician: Primary Care Physician: Domo Villa MD Attending Physician: Admit Status: From the Emergency Department, Full Admit, Remote Telemetry Chief Complaint: Right Hip pain after fall History of Present Illness: Marian Bhatti is a 87 year old female with Parkinson disease, Restless leg syndrome and Orthostatic hypotension who presents to [facility] emergency department via EMS with right hip pain after a ground level fall just prior to arrival. Patient poor historian and has dementia at baseline. She also received Dilaudid and was a little confused prior to my interview. Records from ED showed : The patient did hit her head in the fall but did not lose consciousness. She was on the ground for 30 minutes before calling [address] Daley, he spoke to Dr Peralta who is planning on surgical repair tomorrow. Labs and vitals reviewed. Review of Systems: unable to obtained due to confusion Allergies Uncoded Allergies: MEDICAL DYE (Adverse Reaction, Severe, Dizziness, "I didn't feel good", ) States allergic to "medical dye" but denies allergy to iodine Home Medications From [facility], not yet confirmed Marian Bhatti. [id number] 1930 03/02/2017 01:00 PM 10/30 acetaminophen ER 650 mg tablet,extended release take 2 tablet by oral route every 4 hours as needed swallowing whole with water. Do not break, crush, dissolve and/or chew. aspirin 81 mg tablet,delayed release take 1 tablet (81MG) by oral route every day carbidopa ER 50 mg-levodopa 200 mg tablet,extended release take 1 tablet by oral route every bedtime Combivent Respimat 20 mcg-100 mcg/actuation solution for inhalation inhale 2 puff by inhalation route 4 times every day ; may take additional puffs as needed not to exceed 6 puffs in 24hrs Ditropan XL 5 mg tablet,extended release take 1 tablet by oral route every day donepezil 10 mg tablet take 1 tablet by oral route every day in the evening fluticasone 50 mcg/actuation nasal spray,suspension instill 1 to 2 sprays into each nostril at bedtime lorazepam 0.5 mg tablet take 1 tablet by oral route at bedtime mirtazapine 15 mg tablet take 1 tablet by oral route every day before bedtime nystatin 100,000 unit/mL oral suspension take 5 milliliter by oral route 4 times every day pramipexole 0.5 mg tablet take 1 tablet by oral route every evening sennosides 8.6 mg tablet take 2 tablet by oral route 2 times every day as needed for constipation sertraline 25 mg tablet take 2 tablet by oral route in AM Ventolin HFA 90 mcg/actuation aerosol inhaler inhale 2 puff by inhalation route every 4 - 6 hours as needed Vitamin D2 50,000 unit capsule take 1 capsule by oral route every week PMH Anxiety Orthostatic hypotension Parkinson disease TIA (transient ischemic attack) Syncope Dizziness Restless legs Arthritis Overactive Bladder bells palsy Asthma Gallbladder disease GERD H/O pulmonary embolism history of kidney stones history of scarlet fever . Surgical History Hernia repair vein stripping carpal tunnel release Cataract extraction lipoma removal Sulma fundoplication Family History Mother had heart disease 74 Father 83 Brother has Prostate Cancer Social History Occupation: worked in [employer] station Hx Alcohol Use: No Hx Substance Use: No Hx Tobacco Use: Yes Smoking Status: Former Smoker Living Arrangement: with Family Exam Vital Signs Vital Sign - Last Date Time Temp Pulse Resp B/P Pulse Ox O2 Delivery O2 Flow Rate FiO2 03/12/17 20:31 36.6 57 20 138/61 96 Room Air Exam General: Alert, Oriented X3, Cooperative, No acute Distress Eyes: PERRLA, Scleral Anicteric Mouth: Mouth Normal, Mucous Membranes Moist/[place] Neck: Supple, no Thyromegaly, trachea central. Chest & Lungs: Clear to auscultation & percussion, No adventitious breath sounds, no crackles, no wheeze Cardiovascular: Normal S1, Normal S2, No Rubs/Gallops, Regular Rate/Rhythm, soft systolic murmur (No JVD, no peripheral edema) Pulses: Radial (present and equal), Dorsalis Pedi (present and equal) Abdomen: Soft, Non-tender, Non-distended, Normoactive bowel tones. Musculoskeletal: Unremarkable. Normal range of motion, no swollen or erythematous joints Extremities: No edema, no cyanosis, no clubbing. Skin: No rashes. Warm and dry, no erythematous areas Neurological: Grossly neurologically intact, Normal Speech, Sensation Intact Lymphatic: Lymph nodes Cervical and Axillary not palpable. Lab and Diagnostics Labs Laboratory Tests Test 03/12/17 21:21 White Blood Count 10.6th/mm3 (3.8-10.1) Red Blood Count 3.85mil/mm3 (3.90-5.20) Hemoglobin 11.7g/dL (12.0-15.6) Hematocrit 36.8% (35.0-46.0) Mean Corpuscular Volume 95.6fL (81-100) Mean Corpuscular Hemoglobin 30.4pg (27.0-35.0) Mean Corpuscular Hemoglobin Concent 31.8% (32.0-37.0) Red Cell Distribution Width 13.1% (12.3-15.4) Platelet Count 272bil/L (150-400) Neutrophils (%) (Auto) 81.2% (40-74) Lymphocytes (%) (Auto) 8.7% (14-46) Monocytes (%) (Auto) 8.4% (4-12) Eosinophils (%) (Auto) 0.8% (0-5) Basophils (%) (Auto) 0.7% (0-3) Prothrombin Time 11.7sec (8.1-12.5) Prothromb Time International Ratio 1.09ratio Sodium Level 142mEq/L (134-144) Potassium Level 3.6mEq/L (3.5-5.2) Chloride Level 104mEq/L (97-108) Carbon Dioxide Level 25mmol/L (18-29) Blood Urea Nitrogen 19mg/dL (8-27) Creatinine 0.82mg/dL (0.57-1.00) Estimat Glomerular Filtration Rate 95mL/min (>59) Glucose Level 119mg/dL (60-99) Calcium Level 9.1mg/dL (8.5-10.1) Total Bilirubin 0.4mg/dL (0.0-1.2) Aspartate Amino Transf (AST/SGOT) 13U/L (0-50) Alanine Aminotransferase (ALT/SGPT) 5U/L (0-32) Alkaline Phosphatase 85U/L (25-165) Total Protein 6.6g/dL (6.4-8.4) Albumin 3.7g/dL (3.4-5.0) Hold King Top Tube Received (Received) Result Diagram: 03/12/17212003/12/172120 X-Rays, CTs and MRIs X-RAY PELVIS W/LAT HIP (RT) 03/12 IMPRESSION: Right intertrochanteric fracture as above. Dictated by: Venita Barrientos M.D. on 03/12/2017 at 20:59 Approved by: Venita Barrientos M.D. on 03/12/2017 at 21:00 ---- CT BRAIN WITHOUT CONTRAST 03/12 IMPRESSION: 1. No acute intracranial process. 2. Moderate atrophy and chronic microvascular ischemic changes. Dictated by: Venita Barrientos M.D. on 03/12/2017 at 21:54 Approved by: Venita Barrientos M.D. on 03/12/2017 at 21:55 Assessment & Plan Marian Bhatti is a 87 year old female with Parkinson disease, Restless leg syndrome, Asthma and Orthostatic hypotension who presents to [facility] emergency department via EMS with right hip pain after a ground level fall 1. Right intertrochanteric fracture. Present on admission Secondary to trauma. Mechanical fall with no syncope noted. Patient is an acceptable candidate for planned surgery. Patient has no increased cardiovascular risk. Her exercise tolerance is good and I do not recommend any further cardiac testing prior to this intermediate risk procedure. - nothing by mouth after midnight - Dr Peralta consulted who will perform surgery - pain management with Dilaudid 1 mg IV PRN - SCD boots for DVT prophylaxis - high risk for delirium, avoid psychoactive medications 2 Parkinson disease - continue Carbidopa/Levodopa 50/200 mg 1 tab HS 3 Restless Leg syndrome - continue Pramipexole 0.5 mg daily and Mirtazapine 15 mg HS 4 Asthma - continue Combivent inhaler, Fluticasone nasal spray and Albuterol as needed 5 Anxiety and Depression disorder - Ativan 0.5 mg HS and Sertraline 50 mg daily - Acetaminophen as needed for mild pain/fever/headache - Bowel regimen as needed - Antiemetic as needed Patient admitted under inpatient status with expected length of stay > 2 midnights for severity of present symptoms, complexities of treatment plan and risk for adverse event . Resuscitation Status: CPR: Attempt Resuscitation Yohannes Ledesma MD March 12, 2017 22:27 Yohannes Ledesma MD March 12, 2017 22:27
[2017-03-13] VITALS (12 sets, daily range): BP systolic 99–155; BP diastolic 48–72; PULSE 57–88; RESP 14–20; O2SAT 96–100
--- NOTE | 2017-03-13 04:39 | NUR ---
Admission/Tele/pain Pt arrived to [facility] at 0030 alert and responsive. Pt unable to assist with slide board transfer from [facility] to bed. Pt is a poor historian and unable to provide enough information to complete the admission questions. If a family member arrives possibly they could be more helpful. Unable to orient pt to room. Call light within reach. [place] alarm in place. Pt arrived on the unit confused about time and place. She does not move much at all and just stares off towards the ceiling. No s/sx of distress, shortness of breath, chest discomfort. No facial grimacing noted. Pt is scheduled for RT hip surgery this AM and has been NPO. Tele SR hr 60 with PVCs per front desk monitor. Care ongoing.
[2017-03-13] MEDS ORDERED: Propofol 10,000 mCg/mL 20 mL Inj ONE (07:17)
[2017-03-13] MEDS ORDERED: Lactated Ringer's 500 ML IV PRN ×2 (10:19→12:38)
[2017-03-13] MEDS ORDERED: Lactated Ringer's 1,000 ML IV SCH ×2 (10:19→12:38)
--- NOTE | 2017-03-13 10:19 | PCM.HPANE ---
Patient Data Surgeon Admitting Provider:Yohannes Ledesma MD Attending Provider:Yohannes Ledesma MD Primary Care Physician:Domo Villa MD Other Provider:Colin Hernández Anesthesia Reason for Visit R Hip Fracture/ Glf Ht/WT & BMI Height (Feet): 5 Height (Inches): 0.00 Weight (Kilograms): 47.000 Body Mass Index 20.34 Allergies Uncoded Allergies: MEDICAL DYE (Adverse Reaction, Severe, Dizziness, "I didn't feel good", ) States allergic to "medical dye" but denies allergy to iodine Past Anesthesia History Anesthesia History: Denies:: Anesthesia Reactions Diabetes History Hx Diabetes?: No Current Bedside Blood Glucose: 115 MRSA MRSA: No Medications Active Scripts Cefdinir 300 Mg [id number] Mg PO BID #10 CAPSULE Prov:Beka Hemphill MD 02/18/17 Sennosides (Senna)8.6 Mg Vzkygt95.2 Mg PO BID PRN For Constipation #30 TABLET Prov:Beka Hemphill MD 02/18/17 Nystatin 100,000 Unit/1 Ml Oral.vudu424,000 Unit PO PCHS #1 BOTTLE Prov:Beka Hemphill MD 02/18/17 Carbidopa/Levodopa ER 50-200 mg 1 Each Tablet.er1 Each PO HS 30 Days Prov:Stephanie Hamilton DO 11/20/14 Reported Medications Cyanocobalamin (Vitamin B12)500 Mcg Tablet1,000 Mcg PO DAILY 02/15/17 Albuterol HFA (Proair HFA)8.5 Gm Hfa.aer.ad1 Puffs INHALATION Q4H PRN For Shortness of Breath 02/15/17 Oxybutynin Chloride ER 5 Mg Tab.er.245 Mg PO QPM 02/15/17 Donepezil 10 Mg Jsyagn78 Mg PO DAILY #30 02/14/17 Fluticasone Propionate (Fluticasone Propionate Nasal)16 Gm [place].susp1 [place] NASAL HS 1 spray in each nostril 02/14/17 Acetaminophen 325 Mg Xggvjq200 Mg PO Q4H PRN For Pain Ref 0 02/14/17 Sertraline HCl (Zoloft)25 Mg Acsynh54 Mg PO DAILY 30 Days Ref 0 10/01/14 Lorazepam 0.5 Mg Tablet0.25 Mg PO HS For Insomnia Ref 0 10/01/14 Pramipexole Dihydrochloride (Mirapex)0.25 Mg Tablet0.25 Mg PO HS 03/23/14 Carbidopa/Levodopa 10-100 mg 1 Ea Tab2 Ea PO TID 03/23/14 Aspirin 81 Mg Tablet.dr81 Mg PO DAILY #1 03/23/14 History History of ENT Problems?: Yes HEENT History: Positive for:: Cataracts (removed in 2005 HAD LENSES PLACED) Sinus Problem (having nose bleeds about 2x a week) Denies:: Dysphagia Denture Type: None Teeth Condition: Within Normal Limits Hx of Heart Problems?: Yes Cardiovascular History: Positive for:: Edema (Feet occasionally) Irregular Heartbeat Denies:: Cardiac Surgery Chest Pain Congestive Heart Failure Heart Murmur Hypertension Pacemaker Thrombophlebitis Hx of Respiratory Problem?: Yes Respiratory History: Positive for:: Dyspnea (SOB for the last 3 years) Pneumonia Denies:: Asthma COPD Chest Surgery Emphysema Hemoptysis Tuberculosis Hx Neurologic Problems?: Yes Neurological History: Positive for:: Dizziness Parkinson's Disease Denies:: Alzheimer's Disease CVA Dementia Headaches Seizures Hx of GI Problems?: Yes Hx of Problems?: Yes Genitourinary History: Positive for:: Urinary Tract Infection Denies:: HX of Hemodialysis Kidney Stones HX of Peritoneal Dialysis: No Female Hx: Denies:: Currently Endometriosis Pelvic Inflammatory Problems with Breasts? Hx Musculoskeletal Problems?: Yes Musculoskeletal History: Denies:: Back Injury Joint Replacement Musculoskeletal Trauma Hx of Psycho/Social Problems?: Yes Psycho Social History: Positive for:: Anxiety Denies:: Bipolar Disorder Hx Depression Suicide Attempt Hx Surgeries?: Yes (hiatal hernia, carpal tunnel, cysts removed from back) Hx Any Other Health Problems?: Yes Other History: Positive for:: Hospitalization (hiatal hernia repair & Bilateral PE 03/01, sycope/hypotension 05/06) Denies:: Cancer Endocrine Disease Thyroid Disease History Blood Transfusions: Denies:: Blood Transfuse Reaction Blood Transfusions Hx Diabetes: NoBedside Blood Glucose: 115 Occupation: worked in [employer] Hx Alcohol Use: NoHx Substance Use: No Smoking Status: Former Smoker Have You Smoked inLast 12 mo: No Stop/Bang Treated for Sleep Apnea?: No Do You Have a CPAP Machine?: No S-Snoring: Do You Snore Loudly: No T-Tired: feel tired, fatigued: No O-Obsered: Observed not breath: No P-Blood Pressure: treated: No B- Body Mass Index > 35 kg/m2: No A- Age over 50: Yes N- Neck Large Circumference: No G- Gender Male: No DEONTE Risk Assessment: Low Risk, <3 Yes Risk Assessment Category Category 1A: Patient has history of documented sleep apnea, and HAS NOT received any narcotic, sedative or anesthesia administration during this stay. Category 1B: Patient has history of documented sleep apnea, and HAS received any narcotic , sedative or anesthesia administration during this stay Category 2: Patient has SUSPECTED Obstructive Sleep Apnea, and HAS received any narcotic , sedative or anesthesia administration during this stay. Category 3: Patient has SUSPECTED Obstructive Sleep Apnea and HAS NOT received narcotic, sedative or anesthesia administration during this stay. Category 4: Outpatient in Procedural Areas with known sleep apnea or who screen positive for High Risk via the STOP/BANG questionnaire. Exam Exam Vital Signs Vital Signs Date Time Temp Pulse Resp B/P Pulse Ox O2 Delivery O2 Flow Rate FiO2 03/13/17 06:33 37.1 64 18 155/72 98 Nasal Cannula 3.00 General Appearance: Alert, Oriented X3, Cooperative, No Acute Distress HEENT/AIRWAY: MP 2, Neck Movement Lungs: Clear to Auscultation, Normal Air Movement Heart: Exam Unremarkable, Regular Rate/Rhythm, No Murmurs/Rubs/Gallops Meds/Labs/Diagnostics Bedside Blood Glucose: 115 Labs Test 03/12/17 21:21 White Blood Count 10.6th/mm3 (3.8-10.1) Red Blood Count 3.85mil/mm3 (3.90-5.20) Hemoglobin 11.7g/dL (12.0-15.6) Hematocrit 36.8% (35.0-46.0) Mean Corpuscular Volume 95.6fL (81-100) Mean Corpuscular Hemoglobin 30.4pg (27.0-35.0) Mean Corpuscular Hemoglobin Concent 31.8% (32.0-37.0) Red Cell Distribution Width 13.1% (12.3-15.4) Platelet Count 272bil/L (150-400) Neutrophils (%) (Auto) 81.2% (40-74) Lymphocytes (%) (Auto) 8.7% (14-46) Monocytes (%) (Auto) 8.4% (4-12) Eosinophils (%) (Auto) 0.8% (0-5) Basophils (%) (Auto) 0.7% (0-3) Prothrombin Time 11.7sec (8.1-12.5) Prothromb Time International Ratio 1.09ratio Sodium Level 142mEq/L (134-144) Potassium Level 3.6mEq/L (3.5-5.2) Chloride Level 104mEq/L (97-108) Carbon Dioxide Level 25mmol/L (18-29) Blood Urea Nitrogen 19mg/dL (8-27) Creatinine 0.82mg/dL (0.57-1.00) Estimat Glomerular Filtration Rate 95mL/min (>59) Glucose Level 119mg/dL (60-99) Calcium Level 9.1mg/dL (8.5-10.1) Total Bilirubin 0.4mg/dL (0.0-1.2) Aspartate Amino Transf (AST/SGOT) 13U/L (0-50) Alanine Aminotransferase (ALT/SGPT) 5U/L (0-32) Alkaline Phosphatase 85U/L (25-165) Total Protein 6.6g/dL (6.4-8.4) Albumin 3.7g/dL (3.4-5.0) Hold [place] Top Tube Received (Received) Plan Impression Patient chart reviewed, patient interviewed and anesthestic plan with risks, benefits, and alternatives discussed, and informed consent obtained. NPO per Anesth. Guidelines: Yes ASA Physical Status: ASA3 Severe Disease Anesthetic Plan: MAC, SAB Bene/Risks/Altern/Consents: Yes HP Complete Prior to Induction: Yes Jose Elkins MD March 13, 2017 10:19
[2017-03-13] MEDS ORDERED: HYDROmorphone 1 mg/mL Inj IVPUSH PRN ×2 (10:20→12:40)
[2017-03-13] MEDS ORDERED: Atropine 0.4 mg/mL Inj IVPUSH PRN ×2 (10:20→12:40)
[2017-03-13] MEDS ORDERED: Ondansetron 2 mg/mL 2 mL Inj IVPUSH PRN ×3 (10:20→12:40)
[2017-03-13] MEDS ORDERED: fentaNYL-PF 50 mCg/mL 2 mL Inj IVPUSH PRN ×2 (10:20→12:40)
[2017-03-13] MEDS ORDERED: Phenylephrine 10,000 mCg/mL Inj IVPUSH PRN ×2 (10:20→12:40)
[2017-03-13] MEDS ORDERED: MetoCLOpramide 5 mg/mL 2 mL Inj IVPUSH PRN ×2 (10:20→12:40)
[2017-03-13] MEDS ORDERED: EPHEDrine Sulfate 50 mg/mL Inj IVPUSH PRN ×2 (10:20→12:40)
[2017-03-13] MEDS ORDERED: Dexamethasone 4 mg/mL Inj IVPUSH PRN ×2 (10:20→12:40)
--- NOTE | 2017-03-13 10:47 | PCM.PNMED ---
Subjective Date of Service March 13, 2017 Subjective pt looked comfortable, soft spoken, denied pain w/o movement Exam Vital Signs Vital Sign - Last Date Time Temp Pulse Resp B/P Pulse Ox O2 Delivery O2 Flow Rate FiO2 03/13/17 06:33 37.1 64 18 155/72 98 Nasal Cannula 3.00 Intake and Output 03/12/17 03/12/17 03/13/17 Cumulative From/Thru 15:00 23:00 07:00 03/12/17 20:31 - 03/13/17 06:33 Intake Total 0 ml 0 ml Output Total 0 ml 0 ml Balance 0 ml 0 ml Intake Oral 0 ml 0 ml Output Urine Total 0 ml 0 ml # Bowel Movements 0 0 Exam Frail elderly lady, comfortably laying down on the bed AAOx2, no JVD, MMM, no LAD RRR, nl s1, s2 no mrg CTAB, no w,c S,ND,NT,normoactive BS+ warm, no edema, pulses 2/2 Rt hip tenderness IVs and Medications Medications Reviewed: Medications were reviewed in detail Lab and Diagnostics Result Diagram: 03/12/17212003/12/172120 X-Rays, CTs and MRIs X-RAY PELVIS W/LAT HIP (RT) 03/12 IMPRESSION: Right intertrochanteric fracture as above. Dictated by: Venita Barrientos M.D. on 03/12/2017 at 20:59 Approved by: Venita Barrientos M.D. on 03/12/2017 at 21:00 ---- CT BRAIN WITHOUT CONTRAST 03/12 IMPRESSION: 1. No acute intracranial process. 2. Moderate atrophy and chronic microvascular ischemic changes. Dictated by: Venita Barrientos M.D. on 03/12/2017 at 21:54 Approved by: Venita Barrientos M.D. on 03/12/2017 at 21:55 Assessment & Plan Marian Bhatti is a 87 year old female with Parkinson disease, Restless leg syndrome, Asthma and Orthostatic hypotension who presents to [facility] emergency department via EMS with right hip pain after a ground level fall 1. Right intertrochanteric fracture. Present on admission Secondary to trauma. Mechanical fall with no syncope noted. EKG NSR, no active cardiac condition, intermediate risk surgery, RCRI:0, 0.4% risks of major cardiac event periop - Dr Peralta consulted who will perform surgery - pain management with Dilaudid 1 mg IV PRN - SCD boots for DVT prophylaxis - high risk for delirium, avoid psychoactive medications -will follow medical post operatively 2 Parkinson disease - continue Carbidopa/Levodopa 50/200 mg 1 tab HS 3 Restless Leg syndrome - continue Pramipexole 0.5 mg daily and Mirtazapine 15 mg HS 4 Asthma - continue Combivent inhaler, Fluticasone nasal spray and Albuterol as needed 5 Anxiety and Depression disorder - Ativan 0.5 mg HS and Sertraline 50 mg daily dispo:likely POD#3 dvt ppx: SCD for now, defer to surgery post-op Full Code VTE Mechanical Devices: Intermittant Pneumatic CD Resuscitation Status: CPR: Attempt Resuscitation Time spent 35min Dar See MD March 13, 2017 10:47
--- NOTE | 2017-03-13 11:06 | NUR ---
TO OR Pt leaves to OR. Report given. 02 NC 3L for transfer in bed to preop. A&OX2. oriented to situation and surgery and self, place as well. Not oriented to time. Dome dementia related paranoia. Belongings locked in personal cabinet in room.
[2017-03-13] MEDS ORDERED: diphenhydrAMINE 25 mg Capsule PO PRN (11:45)
[2017-03-13] MEDS ORDERED: Magnesium Hydroxide 10 mL Oral Concentration PO PRN (11:45)
[2017-03-13] MEDS ORDERED: HYDROcodone-APAP 7.5-325 mg Tablet PO PRN (11:45)
[2017-03-13] MEDS ORDERED: Polyethylene Glycol (PEG) 17 Gm Powder PO PRN (11:45)
[2017-03-13] MEDS ORDERED: Sodium Biphos-Phos 133 mL Enema RECTAL PRN (11:45)
[2017-03-13] MEDS ORDERED: hydrOXYzine Pamoate 25 mg Capsule PO PRN (11:45)
--- NOTE | 2017-03-13 11:57 | NUR ---
Social Work: Initial Assessment Attempt [employer] attempted to complete initial assessment, but patient was away for surgery. SW will attempt to complete Initial assessment at a later time. Lanie Martinez LMSW, ACM
[2017-03-13] MEDS ORDERED: Lactated Ringer's 1,000 ML IV ONE (12:13)
[2017-03-13] MEDS ORDERED: CeFAZolin Inj 2 gm / 50mL D5W IV ONE (12:18)
[2017-03-13] MEDS ORDERED: Ropivacaine-PF 0.5% 30 mL Inj INFILTRATE ONE (13:03)
[2017-03-13] MEDS ORDERED: Bacitracin 50,000 unit Inj IRRIGATION ONE (13:03)
--- NOTE | 2017-03-13 14:09 | PCM.ORTHOP ---
Orthopedic Operative Report Date of Service: March 13, 2017 Pre Operative Diagnosis right displaced intertrochanteric hip fracture Post Operative Diagnosis right displaced intertrochanteric hip fracture Procedure Right hip closed reduction intramedullary nail fixation Surgeon Surgeon:Beka Peralta Assistants: Damir Mendoza Indication for Procedure right displaced intertrochanteric hip fracture Findings per dictation Details of Procedure Implant: Synthes 139 deg 12mm X 360mm, 5mm locking screw 52mm, 100mm lag screw Indications: This is Marian Lozano who is an 87-year-old female status-post a right intertrochanteric hip fracture with lesser trochanteric extension. The risks versus benefits of open reduction and internal fixation were discussed with the patient in detail. The patient voiced understanding of the risks and agreed to proceed. The risks discussed were pain, bleeding, infection, damage to neurovascular structures, failure of procedure, need for further procedures, loss of limb function, loss of limb, heart attack, stroke, and . Verbal and written consent were obtained. Description of Operation: The patient was brought to the operating room. Patient name and surgical site were confirmed. Preoperative antibiotics were given. General anesthesia was administered. The patient was placed supine on the fracture table in the standard fashion. All bony prominences were well padded. Traction was applied to the operative leg and the fracture was closed reduced under C-arm guidance. The leg and hip were then prepped and draped in the usual sterile fashion. A small longitudinal incision was made proximal to the greater trochanter. Subcutaneous dissection was bluntly performed down to the tip of the greater trochanter. A 3.2 mm guide pin was then placed through the tip of the greater trochanter and into the femoral canal under fluoroscopic guidance. This was checked in both AP and lateral views. This pin was then over-reamed with a 17 mm reamer. The ball tipped guide wire was placed into the medullary canal and advanced into the center of the distal metaphysis. The guide wire was then over-reamed in 0.5 mm increments until bony chatter was achieved at the isthmus. A tire gauge was used to determine the length of the nail. The nail implant was loaded onto the insertion jig and then gently malleted into position over the guide wire. The fracture was well reduced as confirmed with C-arm in AP and lateral views. The guide was removed. The guide pin for the hip screw was inserted to a point within 25 mm tip-to-apex distance on AP and lateral views. The size was measured. A hip screw size was selected along with a compression screw. The lateral cortex was drilled for the compression screw. An antirotation pin was drill prior to insertion. The guide pin was then overdrilled and the hip screw was inserted with clear compression at the fracture once the compression screw inserted and engaged. The traction was removed and orthogonal views with fluoroscopy determined reduction of our fracture with appropriate placement of hip screw centered with a tip-to-apex distance less than 25 mm. The distal interlocking screw was then inserted in the standard fashion using the perfect bill moore's slough technique under C-arm guidance. All wounds were thoroughly irrigated by bulb irrigation. Hemostasis was obtained with electrocautery. The fascia was closed with 0 Vicryl suture. The subcutaneous space was closed with interrupted 2-0 Vicryl suture. The skin was closed with seamus. Hard copy radiographs confirmed adequate reduction and placement of hardware. The patient was extubated without difficulty and transferred to the PACU in stable condition. I was present and scrubbed for the entire procedure. Description of Findings: right intertrochanteric fracture with lesser trochanteric extension, severely osteopenic bone Specimens Obtained: none You may WBAT. Keep your wound clean, dry and intact. We will change your dressing in 2 days and continue daily dressing changes PT/OT will be ordered. Return to clinic in 2 weeks with me with 2 view x-rays and staple/suture removal with Steri-Strips application. You may get your wound wet at that time. Please keep the affected extremity elevated when possible. You may use ice and/or heat as needed for comfort. All questions and concerns were addressed. Please feel free to call with any further questions, comments, and/or concerns. You will start anticoagulation tomorrow AM and will take for 35 days to prevent blood clots. You will be discharged on Xarelto, [place], and colace. Grafts, Implants: Implants-See Implant Record Complications There were no periprocedural complications identified. Condition Stable Anesthetic Administered: GA Catheters: None Output, Estimated Blood Loss: 50 Blood Admin during surgery: No Surgical Cast or Splint: Other Surgical Specimen Removed: No Specimen sent to Pathology: No copies to: Beka Peralta MD, Christopher L MD March 13, 2017 14:09
--- NOTE | 2017-03-13 15:15 | NUR ---
POSTOP Pt comes back from PACU on RA 89-96% on CPOx. alert and oriented to self, place and situation but not oriented to time and forgetful at times. Mumbling and slurring speech which was her baseline prior to Sx. 3 [place] dressings on Right upper hip. hip and lower thigh. C/D/I. Denies pain, CP, SOB, or nausea. Care continues
--- NOTE | 2017-03-13 15:17 | DRSVH ---
PROCEDURE: X-RAY PELVIS W/LAT HIP (RT) ([id number]) INDICATIONS: post operation TECHNIQUE: AP pelvis with lateral view(s) of the right hip(s). COMPARISON: [facility], , XR PELVIS W LATERAL HIP RT, 03/12/2017, 20:32. FINDINGS: Bones: Postsurgical changes compatible with ORIF of right intertrochanteric hip fracture noted. The re is near anatomic alignment following reduction. Soft tissues: The visualized bowel gas pattern is normal. No suspicious soft tissue calcifications. IMPRESSION: SPECT postsurgical change for ORIF of right intertrochanteric hip fracture. Dictated by: Lubna Dodd MD, PhD on 03/13/2017 at 15:14 Approved by: Lubna Dodd MD, PhD on 03/13/2017 at 15:15
--- NOTE | 2017-03-13 16:10 | PCM.ANEP1 ---
Post Anesthesia PACU Phase 1 Assessment Vital Signs Vital Signs Date Time Temp Pulse Resp B/P Pulse Ox O2 Delivery O2 Flow Rate FiO2 03/13/17 15:26 36.6 67 18 115/62 Room Air 03/13/17 15:15 Supplement Oxygen 03/13/17 14:57 36.6 65 14 128/54 97 Room Air 03/13/17 14:42 68 18 124/53 97 Room Air 03/13/17 14:25 63 17 110/53 96 Room Air 03/13/17 14:20 65 99/ 03/13/17 14:15 64 20 109/48 97 Room Air 03/13/17 14:10 36.4 57 14 99/55 99 Simple Mask 9 03/13/17 08:20 Supplement Oxygen Anesthetic Administered: GA Level of Alertness: Awake, talking TADEO's with Equal Strength: No (Right Hip Pinning Sx) Pain: No (per pt no pain. no S/Sx of pain at this time .) Pain Scale Score: 0 Nausea or Vomiting: No CV Function and Hydration: Yes Airway Device: Oxygen Delivery: Room Air Lungs: Clear to Auscultation, Normal Air Movement Dermatome Level: Full Sensation PACU Phase 2 Assessment Complications: No Follow up Care: N/A Patient Instructions Provided: Yes Jose Elkins MD March 13, 2017 16:10
--- NOTE | 2017-03-13 16:17 | NUR ---
Social Work Note: Initial Assessment Data& Assessment: EMR reviewed. SW met with pt at bedside to discuss discharge planning, SW role explained. Marian Lozano is a 87 year old female admitted on 03/03/2017 for R HIP fracture post fall at home. Pt has [facility] and her PCP is Domo Goldman MD. Pt lives in [place] in a mobile home and is independent with ADL's at baseline. Pt ambulates with a cane and try's to stay active at home with chores when she is feeling her best. Pt has a caregiver through [facility] that comes 1X a week to help run errands. Pt is currently open with [facility] PT and RN. Pt has had a hx at [facility] from one year ago. Pt does not have LT insurance or VA benefits. Pt has DPOA paperwork completed for her brother Jose Baird ( [phone]), who lives in . SW requested a copy. Pt anxious to see what MD and PT recommends but agreeable to return to [facility] or home with resume [facility] pending MD orders and PT recommendations. Plan: Anticipated discharge home with resume [facility] vs. SNF pending MD orders and PT recommendations. Pt denies any other needs at this time. SW to continue to follow if any needs arise. OPAL Max Addendum: 03/13/17 at 1621 by TABITHA LAKE Amended: Links added.
[2017-03-13] MEDS: Sodium Chloride LOK Flush 10 mL Syringe IV SCH (16:30)
--- NOTE | 2017-03-13 18:58 | NUR ---
Syncopal Episode Stood pt up to pivot to commode and pt slowly passed out in arms. Lowered pt back to bed and layed down to pillow. Lasted 20 seconds and pt began to sit back up. Then passed back out again for another 10 second prior to answering questions. BP 126/69 HR 76 slightly fast per baseline. Per groundwater monitoring technician no rhythm changes abnormal to pt. No deficits noted. Pt declines pain, declines feeling faint or lightheaded. Pt did urinate in brief when this happened. Care continues.
[2017-03-13] MEDS: Senna-Docusate 8.6-50 mg Tablet PO SCH (20:30)
[2017-03-14] VITALS (8 sets, daily range): BP systolic 120–149; BP diastolic 65–71; PULSE 63–81; RESP 16–18; O2SAT 95–98
--- NOTE | 2017-03-14 00:53 | NUR ---
Pain Patient continues to state that she has little or no pain. patient sleeping most of shift. 95% on room air. A&Ox3. Tele sinus 76. Patient states she has good sensation to her extremities. Vitals stable.
[2017-03-14] MEDS: Sodium Chloride LOK Flush 10 mL Syringe IV SCH ×3 (01:03→17:36)
[2017-03-14 06:43] LABS: BASOPHILS % (AUTO) 0.3 % (0-3); EOSINOPHILS % (AUTO) 0 % (0-5); MONOCYTES % (AUTO) 13.4 % (4-12); Mean Corpuscular Hemoglobin 30.8 pg (27.0-35.0); Mean Corpuscular Volume 96.2 fL (81-100); NEUTROPHILS % (AUTO) 75.1 % (40-74); Platelet Count 223 bil/L (150-400)
[2017-03-14] MEDS ORDERED: Bupivacaine-MPF 0.75% 30 mL Inj ONE (07:52)
[2017-03-14] MEDS ORDERED: Propofol 10,000 mCg/mL 20 mL Inj ONE (07:52)
[2017-03-14] MEDS ORDERED: EPHEDrine/NS 5 mg/mL 5 mL Syringe ONE (07:52)
[2017-03-14] MEDS ORDERED: fentaNYL-PF 50 mCg/mL 2 mL Inj ONE (07:52)
[2017-03-14] MEDS: 0.9% Sodium Chloride 1,000 ML IV SCH ×2 (07:58→20:54)
[2017-03-14] MEDS: Senna-Docusate 8.6-50 mg Tablet PO SCH ×2 (08:30→20:36)
[2017-03-14] MEDS ORDERED: Albuterol HFA 60 Puff 8 Gm Inhaler INHALATION PRN (08:45)
[2017-03-14] MEDS ORDERED: Albuterol 2.5 mg/3 mL Inhalation Solution NEB PRN (08:52)
--- NOTE | 2017-03-14 09:00 | PCM.PNMED ---
Subjective Date of Service March 14, 2017 Subjective Pain controlled.low UOP overnight. Started on IV fluid. Exam Vital Signs Vital Sign - Last Date Time Temp Pulse Resp B/P Pulse Ox O2 Delivery O2 Flow Rate FiO2 03/14/17 06:33 37.1 70 16 129/69 95 Room Air 03/13/17 14:10 9 Intake and Output 03/13/17 03/13/17 03/14/17 Cumulative From/Thru 15:00 23:00 07:00 03/12/17 20:31 - 03/14/17 06:37 Intake Total 900 ml 100 ml 250 ml 1250 ml Output Total 100 ml 225 ml 325 ml Balance 800 ml -125 ml 250 ml 925 ml Intake Oral 50 ml 250 ml 300 ml IV Total 900 ml 50 ml 950 ml Output Urine Total 225 ml 225 ml Estimated Blood Loss 100 ml 100 ml # Bowel Movements 0 0 0 Exam Frail elderly lady, comfortably laying down on the bed AAOx2, no JVD, MMM, no LAD RRR, nl s1, s2 ,gII systolic murmur CTAB, no w,c S,ND,NT,normoactive BS+ warm, no edema, pulses 2/2 Rt hip tenderness. Intact and clean dressing IVs and Medications Medications Reviewed: Medications were reviewed in detail Lab and Diagnostics Result Diagram: 03/14/1745 03/14/17544 X-Rays, CTs and MRIs X-RAY PELVIS W/LAT HIP (RT) 03/12 IMPRESSION: Right intertrochanteric fracture as above. Dictated by: Venita Barrientos M.D. on 03/12/2017 at 20:59 Approved by: Venita Barrientos M.D. on 03/12/2017 at 21:00 ---- CT BRAIN WITHOUT CONTRAST 03/12 IMPRESSION: 1. No acute intracranial process. 2. Moderate atrophy and chronic microvascular ischemic changes. Dictated by: Venita Barrientos M.D. on 03/12/2017 at 21:54 Approved by: Venita Barrientos M.D. on 03/12/2017 at 21:55 Additional Diagnostics Date of Service: March 13, 2017 Pre Operative Diagnosis right displaced intertrochanteric hip fracture Post Operative Diagnosis right displaced intertrochanteric hip fracture Procedure Right hip closed reduction intramedullary nail fixation Surgeon Surgeon:Beka Peralta Assistants: Damir Mendoza Indication for Procedure right displaced intertrochanteric hip fracture Findings per dictation Details of Procedure Implant: Synthes 139 deg 12mm X 360mm, 5mm locking screw 52mm, 100mm lag screw Assessment & Plan Marian Bhatti is a 87 year old female with Parkinson disease, Restless leg syndrome, Asthma and Orthostatic hypotension who presents to [facility] emergency department via EMS with right hip pain after a ground level fall 1. Right intertrochanteric fracture. Present on admission Secondary to trauma. Mechanical fall with no syncope noted. EKG NSR, no active cardiac condition, intermediate risk surgery, RCRI:0, 0.4% risks of major cardiac event periop -s/p Right hip closed reduction intramedullary nail fixation 03/13/17 - pain management with Dilaudid 1 mg IV PRN - SCD boots for DVT prophylaxis - high risk for delirium, avoid psychoactive medications -Hemoglobin 9.0, 2 Parkinson disease - continue Carbidopa/Levodopa 50/200 mg 1 tab HS 3 Restless Leg syndrome - continue Pramipexole 0.5 mg daily and Mirtazapine 15 mg HS 4 Asthma - continue Combivent inhaler, Fluticasone nasal spray and Albuterol as needed 5 Anxiety and Depression disorder - Ativan 0.5 mg HS and Sertraline 50 mg daily dispo:likely POD#3 dvt ppx: SCD for now, defer to surgery post-op Full Code VTE Mechanical Devices: Intermittant Pneumatic CD Resuscitation Status: CPR: Attempt Resuscitation Johnathon Branch MD March 14, 2017 09:00
--- NOTE | 2017-03-14 10:20 | NUR ---
Evaluation completed. Please go to "Notes" then click on "Assessments and Notes" (bottom left corner of screen). Then select appropriate discipline tab on top of screen.
--- NOTE | 2017-03-14 11:23 | PCM.PNORTH ---
Subjective Date of Service: March 14, 2017 Visit Information: Reason for Visit R Hip Fracture/ Glf Surgery/Surgery Date R HIP ORIF 03/13/17 Post-Op Day # Date of Admission: March 12, 2017 at 22:43 Hospital Day # Subjective Palpation awake and alert this morning and supine in bed. Position on the left side had no complaints of pain. Patient does relate that she has Parkinson's disease and has a baseline level of anesthesia at the right foot. Patient did however state that she could feel me touching her this morning at the right foot. I have discussed with patient possible discharge to long-term facility depending on her mobility. Patient has advised that she uses a single- point cane at baseline at home with some use of a front wheeled walker and possible furniture cruising. Postop General: No Complaints, No Shortness of Breath, No Chest Pain Pain Management: PO Objective Exam Objective Alert and oriented 3 and pleasant. Interoperative dressing is dry and intact with light swelling at the proximal dressing. Calf and thigh are soft and nontender. Toe wiggle and sensation are intact right lower extremity distally Retana is absent. Bilateral SCDs in place. Physical therapy has worked with the patient this morning and she is unable to perform any active gait at this time. Vital Signs and I/O Vital Sign - Last Date Time Temp Pulse Resp B/P Pulse Ox O2 Delivery O2 Flow Rate FiO2 03/14/17 10:21 36.7 71 17 132/71 98 Room Air 03/13/17 14:10 9 Intake and Output 03/13/17 03/13/17 03/14/17 Cumulative From/Thru 15:00 23:00 07:00 03/12/17 20:31 - 03/14/17 06:37 Intake Total 900 ml 100 ml 250 ml 1250 ml Output Total 100 ml 225 ml 325 ml Balance 800 ml -125 ml 250 ml 925 ml Intake Oral 50 ml 250 ml 300 ml IV Total 900 ml 50 ml 950 ml Output Urine Total 225 ml 225 ml Estimated Blood Loss 100 ml 100 ml # Bowel Movements 0 0 0 Lab & Micro Results Laboratory Tests Test 03/14/17 05:45 White Blood Count 9.3th/mm3 (3.8-10.1) Red Blood Count 2.92mil/mm3 (3.90-5.20) Hemoglobin 9.0g/dL (12.0-15.6) Hematocrit 28.1% (35.0-46.0) Mean Corpuscular Volume 96.2fL (81-100) Mean Corpuscular Hemoglobin 30.8pg (27.0-35.0) Mean Corpuscular Hemoglobin Concent 32.0% (32.0-37.0) Red Cell Distribution Width 13.1% (12.3-15.4) Platelet Count 223bil/L (150-400) Neutrophils (%) (Auto) 75.1% (40-74) Lymphocytes (%) (Auto) 11.0% (14-46) Monocytes (%) (Auto) 13.4% (4-12) Eosinophils (%) (Auto) 0% (0-5) Basophils (%) (Auto) 0.3% (0-3) Sodium Level 142mEq/L (134-144) Potassium Level 4.0mEq/L (3.5-5.2) Chloride Level 104mEq/L (97-108) Carbon Dioxide Level 29mmol/L (18-29) Blood Urea Nitrogen 22mg/dL (8-27) Creatinine 0.82mg/dL (0.57-1.00) Estimat Glomerular Filtration Rate 95mL/min (>59) Glucose Level 131mg/dL (60-99) Calcium Level 8.8mg/dL (8.5-10.1) Magnesium Level 2.0mg/dL (1.6-2.6) Total Bilirubin 0.9mg/dL (0.0-1.2) Aspartate Amino Transf (AST/SGOT) 11U/L (0-50) Alanine Aminotransferase (ALT/SGPT) 7U/L (0-32) Alkaline Phosphatase 73U/L (25-165) Total Protein 5.6g/dL (6.4-8.4) Albumin 3.3g/dL (3.4-5.0) Result Diagram: 03/14/1754403/14/17544 General Appearance: Alert, Oriented X3, Cooperative, No Acute Distress Extremities: No Compartment Syndrom Noted, Thigh & Calf Soft/Nontender Postop Sensory Motor: Distal Motor Intact, Movement in Toes, Distal Sensation Intact Activity: Activity per PT, Ambulate with PT (weightbearing as tolerated on the right lower extremity using a walker) Catheters: None Assessment & Plan Impression Iris Blake is an 87-year-old female seen today postop day #1 from a right femoral long IM nail placed on 03/13/[address] Beka Peralta. Patient has had physical therapy this morning and was unable to perform gait. She has no complaints at this time and we have discussed possible discharge to skilled facility. Problems: Plan Postoperative #1 from left femoral long IM nail placed on 03/13/[address] Beka Peralta. Hemoglobin 9, hematocrit 28.1 Patient indicates baseline Parkinson's disease with some right lower extremity anesthesia at baseline. Weightbearing as tolerated on the right lower extremity using front wheeled walker. Continue formal physical therapy for mobility, gait and safety. Continue by mouth pain medication as needed. Continue Xarelto 10 mg daily 35 days postop for DVT prophylaxis. Interoperative dressing is found to be dry and intact with very light swelling proximal bandage Bilateral SCDs are in place. Retana is absent. Nursing please measure and fit bilateral thigh-high RONAN hose as ordered today. Follow-up [facility] orthopedic clinic in [address] Beka hurtado for staple removal and Steri-Strip placement with right two-view femur x-rays on arrival. Patient may shower and wet wound after this visit. Follow-up at [facility] orthopedic clinic in [address] Beka hurtado with right two-view femur x-rays on arrival. Thanks hospitalist service for their help in the medical management of this patient. Anticipate discharge to long-term facility on postop day #3, 03/16/2017 by hospitalist service if patient is medically stable to do so. VTE Prophylaxis: SCDs (bilateral SCDs), RONAN Hose (bilateral thigh-high RONAN hose ), Other (Xarelto 10mg 35 days postop for DVT prophylaxis) Resuscitation Status: CPR: Attempt Resuscitation Damir Mendoza PA-C March 14, 2017 11:23
[2017-03-14] MEDS: Nystatin 100,000 Unit/mL 59 mL Suspension PO SCH ×2 (13:00→17:36)
--- NOTE | 2017-03-14 13:01 | NUR ---
Pain/personal belongings Consistently denies pain at rest. Tylenol given prn. 1 bottle home medications in hospital pharmacy. Personal items (wallet and checkbook) in hospital safe.
[2017-03-14] MEDS: CARBIDOPA LEVODOPA PO SCH ×2 (13:16→20:30)
--- NOTE | 2017-03-14 14:14 | NUR ---
NUTRITION ASSESSMENT: ASSESS: 87YO F POD#1 s/p hip fx repair. Nutrition screens indicate chew/swallow issues and wt loss, however no recorded dysphagia noted per PMHx. PMHX: TIA, parkinsons,clancy palsy,GERD, Restless leg syndrome, dementia DIET: General. PO: sips x 1 meal LABS: Alb 3.3, [id number] MEDS: Reviewed GI: No BM SKIN: Mikie 16 WEIGHT: 49.2kg; BMI 21.2; admit wt:47kg EST.NEEDS: 25-35kcal/kg;1.0-1.2g/kg pro Kcal: 5718-9981 Pro: 50-60g NUTRITION DIAGNOSIS: (1) Inadequate oral intake related to decreased appetite as evidenced by po intake of sips recorded, reported weight loss prior to admit. INTERVENTION: (1) Supplements (Ensure) added to meal trays to promote increased kcal/protein intake. MONITOR/EVALUATE: Diet/texture tolerance, po intake, labs, GI status. Follow-up per moderate risk.
--- NOTE | 2017-03-14 15:48 | NUR ---
Evaluation completed. Please go to "Notes" then click on "Assessments and Notes" (bottom left corner of screen). Then select appropriate discipline tab on top of screen.
--- NOTE | 2017-03-14 16:42 | NUR ---
Social Work: Continued Discharge Planning D: EMR reviewed. Pt is on day 2 of hospitalization. SW met with pt to discuss SNF possibility. Pt is concerned insurance will only authorize 7-day stay. Pt has Hx at [facility] and was only authorized for 7-days. She is also concerned that PT is not at [facility] on weekends so she would only get 5 days of therapy. SW confirmed hospitalist entered order to discuss SNF and HH. SW contacted Nena Cisse at [facility] per pt's request. Pt is open with [facility] for 1-day of care giving per week. Nena stated she is trying to work with pt's insurance to increase prompt care rn to 2x per week or more. Nena would like to be updated with pt's discharge plan ([phone]). PT recommends SNF as of 03/14. Pt is also open with [facility] RN PT. SW to follow-up with pt and provide choice list/discuss HH vs. SNF. SW will continue to follow. A: Pt for whom a SNF has been deemed medically necessary. P: SW to provide pt with choice list and discuss SNF recommendations by PT vs. resuming HH and [facility] prompt care rn. OPAL [place]
[2017-03-14] MEDS: Carbidopa-Levodopa 50-200 mg ER12 Tablet PO SCH (20:40)
[2017-03-15] VITALS (8 sets, daily range): BP systolic 108–155; BP diastolic 54–76; PULSE 61–79; RESP 16–18; O2SAT 96–98
[2017-03-15] MEDS: Sodium Chloride LOK Flush 10 mL Syringe IV SCH ×3 (00:30→16:46)
--- NOTE | 2017-03-15 00:52 | NUR ---
Medication Withheld Carbidopa-levodopa 10-100mg scheduled at 2029 was withheld. It was noted that the 50-200mg dose was scheduled at 2100. Pharmacist consulted and it was determined that the dose were scheduled too close together. This should be addressed in the am per the pharmacist.
[2017-03-15] MEDS: Tolterodine ER 2 mg ER24 Capsule PO SCH ×2 (01:11→20:11)
[2017-03-15] MEDS: Nystatin 100,000 Unit/mL 59 mL Suspension PO SCH ×2 (01:12→08:53)
--- NOTE | 2017-03-15 02:55 | NUR ---
Activity On initial assessment, patient denied hip pain. Patient appeared to be slightly passive. Patient did not want to use bsc and opted to use bedpan. VSS. Call light within reach. Care continues. Addendum: 03/15/17 at 0258 by JOURDAN ALVARES RN Bilateral RONAN levy on . Patient has no complaints
[2017-03-15] MEDS: Senna-Docusate 8.6-50 mg Tablet PO SCH ×2 (08:53→20:08)
[2017-03-15] MEDS: CARBIDOPA LEVODOPA PO SCH ×3 (10:27→20:09)
--- NOTE | 2017-03-15 12:59 | PCM.PNORTH ---
Subjective Date of Service: March 15, 2017 Visit Information: Reason for Visit R Hip Fracture/ Glf Surgery/Surgery Date R HIP ORIF 03/13/17 Post-Op Day # 2 Date of Admission: March 12, 2017 at 22:43 Hospital Day # Subjective Patient seems a little disoriented but was able to convey that she was not experiencing very much. She states she has not been up with physical therapy but was told she would be soon. She expresses concerns regarding her Parkinson' s and future fall risk. Postop General: No Complaints, No Shortness of Breath, No Chest Pain Pain Management: PO Objective Exam Objective Sitting up in bed Vital Signs and I/O Vital Sign - Last Date Time Temp Pulse Resp B/P Pulse Ox O2 Delivery O2 Flow Rate FiO2 03/15/17 10:50 77 03/15/17 09:51 36.8 17 108/70 97 Room Air 03/13/17 14:10 9 Intake and Output 03/14/17 03/14/17 03/15/17 Cumulative From/Thru 15:00 23:00 07:00 03/12/17 20:31 - 03/15/17 06:03 Intake Total 895 ml 1902 ml 4047 ml Output Total 300 ml 550 ml 1175 ml Balance 595 ml 1352 ml 2872 ml Intake Oral 895 ml 250 ml 1445 ml IV Total 1652 ml 2602 ml Output Urine Total 300 ml 550 ml 1075 ml Estimated Blood Loss 100 ml # Voids 2 2 # Bowel Movements 1 0 1 Result Diagram: 03/14/17 0545 03/14/17 0545 General Appearance: Alert, Cooperative, No Acute Distress Extremities: Distal Pulses Palpable, No Compartment Syndrom Noted Postop Sensory Motor: Distal Motor Intact, Movement in Toes, Distal Sensation Intact, NVI Distally SURGICAL WOUND : Wound Location/Description Island dressings in place, c/d/i Activity: Activity per PT, Ambulate with PT (weightbearing as tolerated on the right lower extremity using a walker) Catheters: None Assessment & Plan Impression POD#2 right long IM femur nail Problems: Plan Weight-bear as tolerated on the right lower extremity using front-wheeled walker. Continue formal physical therapy for mobility, gait and safety. Continue pain medication as needed with removal of IV pain medication as soon as able. DVT prophylaxis: Xarelto 10 mg daily 35 days postop for DVT prophylaxis. Island dressings are clean dry and intact. Dressing will be changed today and should have daily dressing changes. Follow-up in 2 weeks that [facility] orthopedic clinic with Dr. Beka Peralta with staple removal and application of Steri-Strips and 2 view left femur x -rays on arrival. Follow up in 6 weeks at [facility] orthopedic clinic with Dr. Beka Peralta with right two-view femur x-rays on arrival. Orthopedics thanks hospitalist service for their help in the medical management of this patient. Anticipate discharge to fdc facility on postop day number 3, 2016 by hospitalist service as patient is at an increased fall risk due to Parkinson's. VTE Prophylaxis: SCDs (bilateral SCDs), RONAN Hose (bilateral thigh-high RONAN hose ), Other (Xarelto 10mg 35 days postop for DVT prophylaxis) Resuscitation Status: CPR: Attempt Resuscitation Zuleyka Fernández PA-C March 15, 2017 12:59
[2017-03-15] MEDS ORDERED: Magnesium Hydroxide 10 mL Oral Concentration PO PRN (14:42)
--- NOTE | 2017-03-15 15:17 | PCM.PNMED ---
Subjective Date of Service March 15, 2017 Subjective Pain controlled. No new events. Exam Vital Signs Vital Sign - Last Date Time Temp Pulse Resp B/P Pulse Ox O2 Delivery O2 Flow Rate FiO2 03/15/17 14:33 36.5 79 17 115/76 96 Room Air 03/13/17 14:10 9 Intake and Output 03/14/17 03/14/17 03/15/17 Cumulative From/Thru 15:00 23:00 07:00 03/12/17 20:31 - 03/15/17 06:03 Intake Total 895 ml 1902 ml 4047 ml Output Total 300 ml 550 ml 1175 ml Balance 595 ml 1352 ml 2872 ml Intake Oral 895 ml 250 ml 1445 ml IV Total 1652 ml 2602 ml Output Urine Total 300 ml 550 ml 1075 ml Estimated Blood Loss 100 ml # Voids 2 2 # Bowel Movements 1 0 1 Exam Frail elderly lady, comfortably laying down on the bed AAOx2, no JVD, MMM, no LAD RRR, nl s1, s2 ,gII systolic murmur CTAB, no w,c S,ND,NT,normoactive BS+ warm, no edema, pulses 2/2 Rt hip tenderness. Intact and clean dressing IVs and Medications Medications Reviewed: Medications were reviewed in detail Lab and Diagnostics Result Diagram: 03/14/1745 03/14/17544 X-Rays, CTs and MRIs X-RAY PELVIS W/LAT HIP (RT) 03/12 IMPRESSION: Right intertrochanteric fracture as above. Dictated by: Venita Barrientos M.D. on 03/12/2017 at 20:59 Approved by: Venita Barrientos M.D. on 03/12/2017 at 21:00 ---- CT BRAIN WITHOUT CONTRAST 03/12 IMPRESSION: 1. No acute intracranial process. 2. Moderate atrophy and chronic microvascular ischemic changes. Dictated by: Venita Barrientos M.D. on 03/12/2017 at 21:54 Approved by: Venita Barrientos M.D. on 03/12/2017 at 21:55 Additional Diagnostics Date of Service: March 13, 2017 Pre Operative Diagnosis right displaced intertrochanteric hip fracture Post Operative Diagnosis right displaced intertrochanteric hip fracture Procedure Right hip closed reduction intramedullary nail fixation Surgeon Surgeon:Beka Peralta Assistants: Damir Mendoza Indication for Procedure right displaced intertrochanteric hip fracture Findings per dictation Details of Procedure Implant: Synthes 139 deg 12mm X 360mm, 5mm locking screw 52mm, 100mm lag screw Assessment & Plan Marian Bhatti is a 87 year old female with Parkinson disease, Restless leg syndrome, Asthma and Orthostatic hypotension who presents to [facility] emergency department via EMS with right hip pain after a ground level fall 1. Right intertrochanteric fracture. Present on admission Secondary to trauma. Mechanical fall with no syncope noted. EKG NSR, no active cardiac condition, intermediate risk surgery, RCRI:0, 0.4% risks of major cardiac event periop -s/p Right hip closed reduction intramedullary nail fixation 03/13/17 - pain management with Dilaudid 1 mg IV PRN - xarelto DVT prophylaxis - high risk for delirium, avoid psychoactive medications -Hemoglobin 9.0, 2 Parkinson disease - continue Carbidopa/Levodopa per med rec 3 Restless Leg syndrome - continue Pramipexole 0.5 mg daily and Mirtazapine 15 mg HS 4 Asthma - continue Combivent inhaler, Fluticasone nasal spray and Albuterol as needed 5 Anxiety and Depression disorder - Ativan 0.5 mg HS and Sertraline 50 mg daily dispo:likely POD#3 dvt ppx: SCD for now, defer to surgery post-op Full Code VTE Prophylaxis: SCDs (bilateral SCDs), RONAN Hose (bilateral thigh-high RONAN hose ), Other (Xarelto 10mg 35 days postop for DVT prophylaxis) VTE Mechanical Devices: Intermittant Pneumatic CD Resuscitation Status: CPR: Attempt Resuscitation Johnathon Branch MD March 15, 2017 15:17
[2017-03-15] MEDS: Nystatin 100,000 Unit/mL 5 mL Suspension PO SCH ×2 (18:01→22:05)
[2017-03-15] MEDS: Ketorolac 15 mg/mL Inj IVPUSH PRN (18:03)
--- NOTE | 2017-03-15 18:12 | NUR ---
Activity- Patient is weak and very unsteady when getting up out of bed to bedside commode. She required max 2 person assist and had difficulty following directions to use walker and safety before sitting down. She did not want to bear weight on her right leg. Right hip dressing changed and incision looks good. Toradol given for moderate pain after activity.
[2017-03-15] MEDS: Carbidopa-Levodopa 50-200 mg ER12 Tablet PO SCH (22:09)
[2017-03-16] VITALS (14 sets, daily range): BP systolic 113–168; BP diastolic 55–82; PULSE 61–78; RESP 16–32; O2SAT 95–97
[2017-03-16] MEDS: Sodium Chloride LOK Flush 10 mL Syringe IV SCH ×4 (01:01→22:02)
--- NOTE | 2017-03-16 01:52 | NUR ---
Activity On initial assessment, patient had no complaint of pain. Dressing on right hip CDI. Buttocks on left side appeared red. Barrier wipe applied. Patient requested to use bedpan during second shift supervisor. Patient stated that she has sob with exertion. VSS. Call light within reach. Care continues.
[2017-03-16 07:02] LABS: BASOPHILS % (AUTO) 0.3 % (0-3); EOSINOPHILS % (AUTO) 2.3 % (0-5); MONOCYTES % (AUTO) 11.1 % (4-12); Mean Corpuscular Hemoglobin 31.3 pg (27.0-35.0); Mean Corpuscular Volume 94.2 fL (81-100); NEUTROPHILS % (AUTO) 69.7 % (40-74); Platelet Count 224 bil/L (150-400)
[2017-03-16 07:03] LABS: Magnesium 1.8 mg/dL (1.6-2.6)
[2017-03-16] MEDS ORDERED: Potassium Chloride 20 mEq SR Tablet PO ONE (07:25)
[2017-03-16] MEDS ORDERED: 0.9% Sodium Chloride 250 ML IV ONE (07:25)
--- NOTE | 2017-03-16 08:55 | PCM.PNMED ---
Subjective Date of Service March 16, 2017 Subjective Pain controlled, drop in hemoglobin to 7 noted. We will transfuse 2 PRBCs Exam Vital Signs Vital Sign - Last Date Time Temp Pulse Resp B/P Pulse Ox O2 Delivery O2 Flow Rate FiO2 03/16/17 07:54 61 16 95 Room Air 03/16/17 05:30 37.1 131/55 03/13/17 14:10 9 Intake and Output 03/15/17 03/15/17 03/16/17 Cumulative From/Thru 15:00 23:00 07:00 03/12/17 20:31 - 03/16/17 06:51 Intake Total 1340 ml 400 ml 5787 ml Output Total 401 ml 200 ml 1776 ml Balance 939 ml 200 ml 4011 ml Intake Oral 1340 ml 400 ml 3185 ml IV Total 2602 ml Output Urine Total 400 ml 200 ml 1675 ml Urine/Stool Mix 1 ml 1 ml Estimated Blood Loss 100 ml # Voids 2 # Bowel Movements 1 Exam Frail elderly lady, comfortably laying down on the bed AAOx2, no JVD, MMM, no LAD RRR, nl s1, s2 ,gII systolic murmur CTAB, no w,c S,ND,NT,normoactive BS+ warm, no edema, pulses 2/2 Rt hip tenderness. Intact and clean dressing. No increased swelling from yesterday IVs and Medications Medications Reviewed: Medications were reviewed in detail Lab and Diagnostics Result Diagram: 03/16/1762703/16/17627 X-Rays, CTs and MRIs X-RAY PELVIS W/LAT HIP (RT) 03/12 IMPRESSION: Right intertrochanteric fracture as above. Dictated by: Venita Barrientos M.D. on 03/12/2017 at 20:59 Approved by: Venita Barrientos M.D. on 03/12/2017 at 21:00 ---- CT BRAIN WITHOUT CONTRAST 03/12 IMPRESSION: 1. No acute intracranial process. 2. Moderate atrophy and chronic microvascular ischemic changes. Dictated by: Venita Barrientos M.D. on 03/12/2017 at 21:54 Approved by: Venita Barrientos M.D. on 03/12/2017 at 21:55 Additional Diagnostics Date of Service: March 13, 2017 Pre Operative Diagnosis right displaced intertrochanteric hip fracture Post Operative Diagnosis right displaced intertrochanteric hip fracture Procedure Right hip closed reduction intramedullary nail fixation Surgeon Surgeon:Beka Peralta Assistants: Damir Mendoza Indication for Procedure right displaced intertrochanteric hip fracture Findings per dictation Details of Procedure Implant: Synthes 139 deg 12mm X 360mm, 5mm locking screw 52mm, 100mm lag screw Assessment & Plan Marian Bhatti is a 87 year old female with Parkinson disease, Restless leg syndrome, Asthma and Orthostatic hypotension who presents to [facility] emergency department via EMS with right hip pain after a ground level fall #. Right intertrochanteric fracture. Present on admission Secondary to trauma. Mechanical fall with no syncope noted. -s/p Right hip closed reduction intramedullary nail fixation 03/13/17 - pain management with Dilaudid 1 mg IV PRN - xarelto DVT prophylaxis - high risk for delirium, avoid psychoactive medications #Blood loss Anemia -Postoperative Hemoglobin 9.0,drop to 7 today -Transfuse PRBCs today -stool occult requested -Continue xarelto for now #Parkinson disease - continue Carbidopa/Levodopa per med rec #Restless Leg syndrome - continue Pramipexole 0.5 mg daily and Mirtazapine 15 mg HS #Asthma - continue Combivent inhaler, Fluticasone nasal spray and Albuterol as needed # Anxiety and Depression disorder - Ativan 0.5 mg HS and Sertraline 50 mg daily dvt ppx: SCD for now, defer to surgery post-op Full Code Disposition: Possible discharge tomorrow to senior care facility. VTE Prophylaxis: SCDs (bilateral SCDs), RONAN Hose (bilateral thigh-high RONAN hose ), Other (Xarelto 10mg 35 days postop for DVT prophylaxis) VTE Mechanical Devices: Intermittant Pneumatic CD, Anti-Embolic stockings Resuscitation Status: CPR: Attempt Resuscitation Johnathon Branch MD March 16, 2017 08:55
[2017-03-16] MEDS: CARBIDOPA LEVODOPA PO SCH ×3 (09:00→20:17)
[2017-03-16] MEDS: Senna-Docusate 8.6-50 mg Tablet PO SCH ×2 (09:05→20:17)
--- NOTE | 2017-03-16 09:05 | NUR ---
SNF CHOICE LIST PROVIDED.
[2017-03-16] MEDS: Nystatin 100,000 Unit/mL 5 mL Suspension PO SCH ×4 (09:13→22:01)
--- NOTE | 2017-03-16 10:15 | NUR ---
Social Work: Readiness for Discharge D: EMR reviewed. Pt is on day 4 of hospitalization for right hip fracture, GLF per H&P. Pt is not medically stable for discharge, anticipate 1-2 more days. Pt to receive blood transfusion today. SW received order for SNF placement from . SW met with pt at bedside regarding SNF placement, SNF role explained. Pt has history of SNF at [facility]. PT is recommending SNF at this time. Pt is agreeable to SNF recommendation, SNF CHOICE LIST PROVIDED. Pt requested SW made referral to [facility], declined making second choice. Pt is concerned about insurance authorization, SW explained process of authorization and assured pt she would be updated as process progressed. SW answered pt's questions to stated satisfaction. Pt declined having SW call any family or friends to update them at this time. SW placed call to Nena Cisse at [facility] ([phone]) to update her of discharge plan, left message and requested return call. Pt is open with [facility] for 1-day of care giving per week. Pt is also open with Sil CLAY RN PT. Referral has been made to [facility]. Paperwork in chart. PASRR in folder. SW will continue to follow. A: Pt for whom a SNF has been deemed medically necessary. P: Referral has been made to [facility]. Paperwork in chart. PASRR in folder. SW will continue to follow. OPAL Garcia Addendum: 03/16/17 at 1334 by SAIGE LAW [facility] has accepted pt with MD Chadwick to follow. MEJIA updated pt at bedside, all updated and agreeable to plan. Insurance authorization to be obtained day of discharge. OPAL Garcia Addendum: 03/16/17 at 1452 by SAIGE LAW SS T/C received from Nena Cisse at [facility] [phone] regarding pt's discharge plan. [facility] will continue to follow pt at [facility]. Dionicio Solis and MEJIA discussed oil heaterman care planning needs and [facility] is working on increasing pt's caregiving if possible. They are also exploring assisted living. Nena updated and agreeable to plan. OPAL Garcia
--- NOTE | 2017-03-16 10:21 | NUR ---
Gave access and faxed facesheet to [facility] per DIRECTOR SPEECH LANGUAGE Addendum: 03/16/17 at 1046 by ANUP SANDOVAL CM Confirmed that Telma Underwood [phone] change coordinator at [facility] received fax and she is able to accept patient when ready with Netta to follow. Updated DIRECTOR SPEECH LANGUAGE
--- NOTE | 2017-03-16 10:25 | PCM.PNORTH ---
Subjective Date of Service: March 16, 2017 Visit Information: Reason for Visit R Hip Fracture/ Glf Surgery/Surgery Date R HIP ORIF 03/13/17 Post-Op Day # 3 Date of Admission: March 12, 2017 at 22:43 Hospital Day # Subjective Patient states her pain is well controlled. She has no questions regarding her hip at this time but does have questions regarding the SNF she will be going to. Postop General: No Complaints, No Shortness of Breath, No Chest Pain Pain Management: PO Objective Exam Objective Patient sitting up in bed eating breakfast Vital Signs and I/O Vital Sign - Last Date Time Temp Pulse Resp B/P Pulse Ox O2 Delivery O2 Flow Rate FiO2 03/16/17 09:43 36.9 65 16 131/59 96 Room Air 03/13/17 14:10 9 Intake and Output 03/15/17 03/15/17 03/16/17 Cumulative From/Thru 15:00 23:00 07:00 03/12/17 20:31 - 03/16/17 06:51 Intake Total 1340 ml 400 ml 5787 ml Output Total 401 ml 200 ml 1776 ml Balance 939 ml 200 ml 4011 ml Intake Oral 1340 ml 400 ml 3185 ml IV Total 2602 ml Output Urine Total 400 ml 200 ml 1675 ml Urine/Stool Mix 1 ml 1 ml Estimated Blood Loss 100 ml # Voids 2 # Bowel Movements 1 Lab & Micro Results Laboratory Tests Test 03/16/17 06:28 White Blood Count 6.6th/mm3 (3.8-10.1) Red Blood Count 2.24mil/mm3 (3.90-5.20) Hemoglobin 7.0g/dL (12.0-15.6) Hematocrit 21.1% (35.0-46.0) Mean Corpuscular Volume 94.2fL (81-100) Mean Corpuscular Hemoglobin 31.3pg (27.0-35.0) Mean Corpuscular Hemoglobin Concent 33.2% (32.0-37.0) Red Cell Distribution Width 13.1% (12.3-15.4) Platelet Count 224bil/L (150-400) Neutrophils (%) (Auto) 69.7% (40-74) Lymphocytes (%) (Auto) 16.4% (14-46) Monocytes (%) (Auto) 11.1% (4-12) Eosinophils (%) (Auto) 2.3% (0-5) Basophils (%) (Auto) 0.3% (0-3) Sodium Level 142mEq/L (134-144) Potassium Level 3.4mEq/L (3.5-5.2) Chloride Level 105mEq/L (97-108) Carbon Dioxide Level 25mmol/L (18-29) Blood Urea Nitrogen 23mg/dL (8-27) Creatinine 0.70mg/dL (0.57-1.00) Estimat Glomerular Filtration Rate 114mL/min (>59) Glucose Level 122mg/dL (60-99) Calcium Level 8.5mg/dL (8.5-10.1) Magnesium Level 1.8mg/dL (1.6-2.6) Total Bilirubin 0.8mg/dL (0.0-1.2) Aspartate Amino Transf (AST/SGOT) 8U/L (0-50) Alanine Aminotransferase (ALT/SGPT) 5U/L (0-32) Alkaline Phosphatase 62U/L (25-165) Total Protein 4.8g/dL (6.4-8.4) Albumin 2.5g/dL (3.4-5.0) Result Diagram: 03/16/1762703/16/17627 General Appearance: Alert, Oriented X3, Cooperative, No Acute Distress Extremities: Distal Pulses Palpable, Warm, No Compartment Syndrom Noted, Thigh & Calf Soft/Nontender, Cyanotic Postop Sensory Motor: Distal Motor Intact, Motor 5/5, Distal Sensation Intact, NVI Distally SURGICAL WOUND : Wound Location/Description Island dressings clean, dry and intact Incision General Appearance: No Direct Observation Activity: Activity per PT, Ambulate with PT (weightbearing as tolerated on the right lower extremity using a walker) Catheters: None Assessment & Plan Impression POD#3 right long IM femur nail Problems: Plan Patient is being transfused today. Weight-bear as tolerated on the right lower extremity using front-wheeled walker. Continue formal physical therapy for mobility, gait and safety. Continue pain medication as needed with removal of IV pain medication as soon as able. DVT prophylaxis: Xarelto 10 mg daily 35 days postop for DVT prophylaxis. Patient should have daily dressing changes. Follow-up in 2 weeks that [facility] orthopedic clinic with Dr. Beka Peralta with staple removal and application of Steri-Strips and 2 view left femur x -rays on arrival. Follow up in 6 weeks at [facility] orthopedic clinic with Dr. Beka Peralta with right two-view femur x-rays on arrival. Orthopedics thanks hospitalist service for their help in the medical management of this patient. Anticipate discharge to snf facility on postop day number 4, I believe to [facility] pending medical clearance. VTE Prophylaxis: SCDs (bilateral SCDs), RONAN Hose (bilateral thigh-high RONAN hose ), Other (Xarelto 10mg 35 days postop for DVT prophylaxis) Resuscitation Status: CPR: Attempt Resuscitation Zuleyka Fernández PA-C March 16, 2017 10:25
--- NOTE | 2017-03-16 10:27 | PCM.DIORTH ---
Ortho Discharge Instruction Date of Service: March 16, 2017 Dates of Hospitalization Date of Hospital Admission March 12, 2017 at 22:43 Providers Admitting Physician: Yohannes Ledesma MD Primary Care Physician: Domo Villa MD Attending Physician: Yohannes Ledesma MD Activity Discharge Activity-General: Balance rest and activity, Ice incision 3-5 time/ day for 20min Right Lower Extremity: Weight Bearing as tolerated Discharge Assist Device: Front Wheeled Walker Dressing and Incisional Care Discharge Dressing Care: Change soiled dressing Additional Instructions Discharge Instructions Weight-bear as tolerated on the right lower extremity using front-wheeled walker. Continue formal physical therapy for mobility, gait and safety. DVT prophylaxis: Xarelto 10 mg daily 35 days postop for DVT prophylaxis. Patient should have daily dressing changes; keep incision covered until 2 week follow up. Patient may shower with dressings covered, however a sponge bath seems more practical to avoid getting the incision or dressings wet. Follow-up in 2 weeks that [facility] orthopedic clinic with Dr. Beka Peralta with staple removal and application of Steri-Strips and 2 view right femur x-rays on arrival. Patient will be cleared showering and getting wound wet at that time. Follow up in 6 weeks at [facility] orthopedic clinic with Dr. Beka Peralta with right two-view femur x-rays on arrival. Zuleyka Fernández PA-C March 16, 2017 10:27
[2017-03-16] MEDS ORDERED: Furosemide 10 mg/mL 4 mL Inj IVPUSH ONE (12:50)
--- NOTE | 2017-03-16 17:45 | NUR ---
Blood Transfusion Pt. was ordered my 2 units of blood to be transfused and the first unit of blood was given at around 1100 and finished at about 1330. Pt. was asymptomatic and the other unit of blood was administered at about 1550. Pt. at this time is asymptomatic with the 2nd unit of blood and is still infusing. Will continue to monitor.
[2017-03-16] MEDS: Tolterodine ER 2 mg ER24 Capsule PO SCH (20:17)
[2017-03-16] MEDS: Carbidopa-Levodopa 50-200 mg ER12 Tablet PO SCH (22:01)
[2017-03-17 00:35] VITALS: BP 158/57; PULSE 61; RESP 16; O2SAT 96
--- NOTE | 2017-03-17 03:16 | NUR ---
Blood Completion/Pain Patient completed second unit of PRBC at beginning of shift. Asymptomatic. VSS. Complaining of 5/10 right hip pain. Administered 650 mg of Tylenol with effective results. Stated pain is "gone" upon reassessment. No further c/o pain or discomfort.
[2017-03-17 05:25] VITALS: PULSE 59
[2017-03-17 06:05] VITALS: BP 170/76; PULSE 54; RESP 16; O2SAT 96
[2017-03-17 07:39] VITALS: PULSE 68; RESP 16; O2SAT 94
[2017-03-17] MEDS: Ketorolac 15 mg/mL Inj IVPUSH PRN (07:49)
[2017-03-17] MEDS: HYDROcodone-APAP 5-325 mg Tablet PO PRN ×2 (07:49→13:56)
[2017-03-17 08:00] VITALS: PULSE 63
[2017-03-17 08:40] LABS: BASOPHILS % (AUTO) 0.2 % (0-3); EOSINOPHILS % (AUTO) 2.1 % (0-5); Mean Corpuscular Volume 89.8 fL (81-100); NEUTROPHILS % (AUTO) 74.4 % (40-74); Platelet Count 328 bil/L (150-400)
[2017-03-17] MEDS: Sodium Chloride LOK Flush 10 mL Syringe IV SCH (08:47)
[2017-03-17] MEDS: Nystatin 100,000 Unit/mL 5 mL Suspension PO SCH ×2 (08:49→13:57)
[2017-03-17] MEDS: Senna-Docusate 8.6-50 mg Tablet PO SCH (08:53)
[2017-03-17] MEDS: CARBIDOPA LEVODOPA PO SCH ×2 (08:55→14:55)
[2017-03-17 09:06] LABS: Magnesium 1.8 mg/dL (1.6-2.6)
[2017-03-17 09:35] VITALS: BP 166/73; PULSE 63; RESP 16; O2SAT 96
--- NOTE | 2017-03-17 10:02 | PCM.DIMED ---
Discharge Instructions Date of Service March 17, 2017 Dates of Hospitalization March 12, 2017 at 22:43 Discharge Diagnosis Discharge Diagnosis #. Right intertrochanteric fracture. Present on admission Secondary to trauma. Mechanical fall with no syncope noted. -s/p Right hip closed reduction intramedullary nail fixation 03/13/17 #Blood loss Anemia requiring transfusion #Parkinson disease #Restless Leg syndrome #Asthma # Anxiety and Depression disorder Diet Discharge Diet: Low fat, Low Sodium, Heart Healthy Activity Discharge Activity: Other (continue physical therapy at alf facility.) Call your provider Call your provider for: Fever or Chills, Shortness of breath, Bleeding, Chest pain, Vomitting, Excessive diarrhea, Weakness (unilateral) Patient Instructions Patient Instructions You were hospitalized due to right hip fracture. You underwent surgery. You also had anemia requiring transfusion postoperative. Please continue physical therapy at alf facility. Please continue pain medication and DVT prophylaxis as prescribed. Per orthopedics instructions Weight-bear as tolerated on the right lower extremity using front-wheeled walker. Continue formal physical therapy for mobility, gait and safety. DVT prophylaxis: Xarelto 10 mg daily 35 days postop for DVT prophylaxis. Patient should have daily dressing changes; keep incision covered until 2 week follow up. Patient may shower with dressings covered, however a sponge bath seems more practical to avoid getting the incision or dressings wet. Follow-up in 2 weeks that [facility] orthopedic clinic with Dr. Beka Peralta with staple removal and application of Steri-Strips and 2 view right femur x-rays on arrival. Patient will be cleared showering and getting wound wet at that time. Follow up in 6 weeks at [facility] orthopedic clinic with Dr. Beka Peralta with right two-view femur x-rays on arrival. Follow-up Provider: Domo Villa MD Follow-up with PCP in: 1 week Provider: Beka Peralta MD Follow-up in: 2 weeks Mid-level Provider (F9): Keeley Chadwick MD Follow-up with Mid-level in: 1 week Johnathon Branch MD March 17, 2017 10:02
[2017-03-17] MEDS ORDERED: RIVA10TA PO (10:03)
[2017-03-17] MEDS ORDERED: HYDR-4003 PO (10:03)
--- NOTE | 2017-03-17 10:19 | NUR ---
Spoke with Shara Azul CM at [facility] [phone] and asked for review and authorization for transfer to [facility] today. Updated BRAZING MACHINE OPERATOR AUTOMATIC Addendum: 03/17/17 at 1039 by ANUP SANDOVAL CM Shara Azul called and approved patient for transfer to [facility] today
--- NOTE | 2017-03-17 10:47 | NUR ---
Faxed orders to [facility] and placed copy in chart. Spoke with Eva Underwood after school program coordinator and she is arranging transport for 1130AM. Updated VENETIAN BLIND MECHANIC and RN Addendum: 03/17/17 at 1101 by SAIGE LAKE Social Work received call from Eva regarding transportation. Eva requested that transport be re-scheduled for 1430. SW updated RN. Galilea Nelson, VENETIAN BLIND MECHANIC
--- NOTE | 2017-03-17 11:01 | NUR ---
Social Work- Discharge Data: EMR reviewed. Pt is on day 5 of hospitalization for right hip fracture per H&P. Pt is medically stable to discharge today. MEJIA spoke with Eva, admissions at [facility], who is agreeable to accepting pt today. UR Specialist created packet and faxed orders. [facility] has authorized pt's stay. MEJIA spoke with pt at bedside regarding discharge plan, pt agreeable to discharge to [facility]. Pt pleased that [facility] has authorized pt's stay. Pt declined having MEJIA contact any family regarding pt's discharge, Pt's listed DPOA is brother Jeremiah who resides in [place]. Pt requested MEJIA updated Nena Cisse of [facility], T/C to Nena regarding pt's discharge plan. Nena agreeable and will continue to follow with pt at [facility]. Eva coordinated transport to [facility] via wheelchair van at 1430. Pt to discharge to [facility] via wheelchair van at 1430. RN, UC, pt, and [facility] all updated and agreeable to plan. Assessment: Pt for whom SNF is medically necessary. Plan: Pt to discharge to [facility] via wheelchair van at 1430. RN, UC, pt, and [facility] all updated and agreeable to plan. OPAL Garcia
--- NOTE | 2017-03-17 11:30 | PCM.DC.MED ---
Discharge Summary Date of Service March 17, 2017 Dates of Hospitalization Date of Hospital Admission March 12, 2017 at 22:43 Date of Discharge: March 17, 2017 Providers: Admitting Physician: Yohannes Ledesma MD Primary Care Physician: Domo Villa MD Attending Physician: Yohannes Ledesma MD Diagnosis at Time of Discharge Diagnosis at Time of Discharge #. Right intertrochanteric fracture. Present on admission Secondary to trauma. Mechanical fall with no syncope noted. -s/p Right hip closed reduction intramedullary nail fixation 03/13/17 #Blood loss Anemia requiring transfusion #Parkinson disease #Restless Leg syndrome #Asthma # Anxiety and Depression disorder Consultations Orthopedics Procedures XRay, CTs & MRIs X-RAY PELVIS W/LAT HIP (RT) 03/12 IMPRESSION: Right intertrochanteric fracture as above. Dictated by: Venita Barrientos M.D. on 03/12/2017 at 20:59 Approved by: Venita Barrientos M.D. on 03/12/2017 at 21:00 ---- CT BRAIN WITHOUT CONTRAST 03/12 IMPRESSION: 1. No acute intracranial process. 2. Moderate atrophy and chronic microvascular ischemic changes. Dictated by: Venita Barrientos M.D. on 03/12/2017 at 21:54 Approved by: Venita Barrientos M.D. on 03/12/2017 at 21:55 Other Diagnostics Date of Service: March 13, 2017 Pre Operative Diagnosis right displaced intertrochanteric hip fracture Post Operative Diagnosis right displaced intertrochanteric hip fracture Procedure Right hip closed reduction intramedullary nail fixation Surgeon Surgeon:Beka Peralta Assistants: Damir Mendoza Indication for Procedure right displaced intertrochanteric hip fracture Findings per dictation Details of Procedure Implant: Synthes 139 deg 12mm X 360mm, 5mm locking screw 52mm, 100mm lag screw Brief History per hpi Marian Bhatti is a 87 year old female with Parkinson disease, Restless leg syndrome and Orthostatic hypotension who presents to [facility] emergency department via EMS with right hip pain after a ground level fall just prior to arrival. Patient poor historian and has dementia at baseline. She also received Dilaudid and was a little confused prior to my interview. Records from ED showed : The patient did hit her head in the fall but did not lose consciousness. She was on the ground for 30 minutes before calling [address] Daley, he spoke to Dr Peralta who is planning on surgical repair tomorrow. Labs and vitals reviewed. Hospital Course Marian Bhatti is a 87 year old female with Parkinson disease, Restless leg syndrome, Asthma and Orthostatic hypotension who presents to [facility] emergency department via EMS with right hip pain after a ground level fall #. Right intertrochanteric fracture. Present on admission Secondary to trauma. Mechanical fall with no syncope noted. -s/p Right hip closed reduction intramedullary nail fixation 03/13/17 - xarelto DVT prophylaxis for 35 days - high risk for delirium, avoid psychoactive medications -Pain controlled with Percocet #Blood loss Anemia requiring transfusion -Postoperative Hemoglobin 9.0,drop to 7 today -Transfused 2 PRBCs 03/16 hemoglobin responded to 11.6 -Continue xarelto for now #Parkinson disease - continue Carbidopa/Levodopa per med rec #Restless Leg syndrome - continue Pramipexole 0.5 mg daily and Mirtazapine 15 mg HS #Asthma - continue Combivent inhaler, Fluticasone nasal spray and Albuterol as needed # Anxiety and Depression disorder - Ativan 0.5 mg HS and Sertraline 50 mg daily Full Code Disposition: discharge to [facility] Condition on discharge stable Exam Vital Signs (Last) Date Time Temp Pulse Resp B/P Pulse Ox O2 Delivery O2 Flow Rate FiO2 03/17/17 09:35 36.7 63 16 166/73 96 Room Air 03/13/17 14:10 9 Exam Frail elderly lady, comfortably laying down on the bed AAOx2, no JVD, MMM, no LAD RRR, nl s1, s2 ,gII systolic murmur CTAB, no w,c S,ND,NT,normoactive BS+ warm, no edema, pulses 2/2 Rt hip tenderness. Intact and clean dressing. No increased swelling from yesterday Test 03/12/17 21:21 03/17/17 08:24 Prothrombin Time 11.7sec (8.1-12.5) Prothromb Time International Ratio 1.09ratio Hold King Top Tube Received (Received) White Blood Count 6.7th/mm3 (3.8-10.1) Red Blood Count 3.74mil/mm3 (3.90-5.20) Hemoglobin 11.6g/dL (12.0-15.6) Hematocrit 33.6% (35.0-46.0) Mean Corpuscular Volume 89.8fL (81-100) Mean Corpuscular Hemoglobin 31.0pg (27.0-35.0) Mean Corpuscular Hemoglobin Concent 34.5% (32.0-37.0) Red Cell Distribution Width 13.9% (12.3-15.4) Platelet Count 328bil/L (150-400) Neutrophils (%) (Auto) 74.4% (40-74) Lymphocytes (%) (Auto) 12.0% (14-46) Monocytes (%) (Auto) 11.0% (4-12) Eosinophils (%) (Auto) 2.1% (0-5) Basophils (%) (Auto) 0.2% (0-3) Sodium Level 141mEq/L (134-144) Potassium Level 3.8mEq/L (3.5-5.2) Chloride Level 103mEq/L (97-108) Carbon Dioxide Level 26mmol/L (18-29) Blood Urea Nitrogen 19mg/dL (8-27) Creatinine 0.56mg/dL (0.57-1.00) Estimat Glomerular Filtration Rate 147mL/min (>59) Glucose Level 105mg/dL (60-99) Calcium Level 8.7mg/dL (8.5-10.1) Magnesium Level 1.8mg/dL (1.6-2.6) Total Bilirubin 1.8mg/dL (0.0-1.2) Aspartate Amino Transf (AST/SGOT) 9U/L (0-50) Alanine Aminotransferase (ALT/SGPT) < 5U/L (0-32) Alkaline Phosphatase 74U/L (25-165) Total Protein 5.5g/dL (6.4-8.4) Albumin 3.2g/dL (3.4-5.0) Discharge Medications Discharge Medications Aspirin (Aspirin) 81 Mg Tablet.dr 81 MG PO DAILY (Reported) Carbidopa/Levodopa 10-100 mg (Carbidopa/Levodopa 10-100 mg) 1 Ea Tab 2 EA PO TID (Reported) Carbidopa/Levodopa ER 50-200 mg (Carbidopa/Levodopa ER 50-200 mg) 1 Each Tablet.er 1 EACH PO HS Prescribed by: JUNIE ALMENDAREZ DO Cyanocobalamin (Vitamin B12) 500 Mcg Tablet 1,000 MCG PO DAILY (Reported) Donepezil (Donepezil) 10 Mg Tablet 10 MG PO DAILY (Reported) Fluticasone Propionate (Fluticasone Propionate Nasal) 16 Gm [place].susp 1 SPRAY NASAL HS (Reported) 1 spray in each nostril Lorazepam (Lorazepam) 0.5 Mg Tablet 0.25 MG PO HS (Reported) Nystatin (Nystatin) 100,000 Unit/1 Ml Oral.susp 500,000 UNIT PO PCHS Prescribed by: STACEY PINTO MD Oxybutynin Chloride ER (Oxybutynin Chloride ER) 5 Mg Tab.er.24 5 MG PO QPM ( Reported) Pramipexole Dihydrochloride (Mirapex) 0.25 Mg Tablet 0.25 MG PO HS (Reported) Rivaroxaban (Xarelto) 10 Mg Tablet 10 MG PO DAILY Prescribed by: YORDAN MATTHEWS MD Sertraline HCl (Zoloft) 25 Mg Tablet 25 MG PO DAILY (Reported) As needed Acetaminophen (Acetaminophen) 325 Mg Tablet 650 MG PO Q4H PRN PRN For Pain ( Reported) Albuterol HFA (Proair HFA) 8.5 Gm Hfa.aer.ad 1 PUFFS INHALATION Q4H PRN PRN For Shortness of Breath (Reported) Hydrocodone-Acetaminophen 5-325 mg (Hydrocodone-Acetaminophen 5-325 mg) 1 Each Tablet 1-2 TABLET PO Q4H PRN PRN For Moderate Pain Prescribed by: YORDAN MATTHEWS MD Sennosides (Senna) 8.6 Mg Tablet 17.2 MG PO BID PRN PRN For Constipation Prescribed by: STACEY PINTO MD Followup Plan Disposition: [facility] facility, [facility] Discharge Diet: Low fat, Low Sodium, Heart Healthy Discharge Activity: Other (continue physical therapy at [facility] facility.) Patient Instructions You were hospitalized due to right hip fracture. You underwent surgery. You also had anemia requiring transfusion postoperative. Please continue physical therapy at [facility] facility. Please continue pain medication and DVT prophylaxis as prescribed. Per orthopedics instructions Weight-bear as tolerated on the right lower extremity using front-wheeled walker. Continue formal physical therapy for mobility, gait and safety. DVT prophylaxis: Xarelto 10 mg daily 35 days postop for DVT prophylaxis. Patient should have daily dressing changes; keep incision covered until 2 week follow up. Patient may shower with dressings covered, however a sponge bath seems more practical to avoid getting the incision or dressings wet. Follow-up in 2 weeks that [facility] orthopedic clinic with Dr. Beka Peralta with staple removal and application of Steri-Strips and 2 view right femur x-rays on arrival. Patient will be cleared showering and getting wound wet at that time. Follow up in 6 weeks at [facility] orthopedic clinic with Dr. Beka Peralta with right two-view femur x-rays on arrival. Follow-up Provider: Domo Villa MD Follow-up with PCP in: 1 week Provider: Beka Peralta MD Follow-up in: 2 weeks Mid-level Provider: Keeley Chadwick MD Follow-up with Mid-level in: 1 week Time spent 35 minutes copies to: Domo Lundy MD; Keeley Chadwick MD; Beka Peralta MD, Melaku MD March 17, 2017 11:29
--- NOTE | 2017-03-17 12:31 | PCM.PNORTH ---
Subjective Date of Service: March 17, 2017 Visit Information: Reason for Visit R Hip Fracture/ Glf Surgery/Surgery Date R HIP ORIF 03/13/17 Post-Op Day # Date of Admission: March 12, 2017 at 22:43 Hospital Day # Subjective Status post day #4 right hip IM nail. Patient states she is doing really well. Not having any pain. Hopeful to be transferred to SNF today. Postop General: No Complaints, No Shortness of Breath, No Chest Pain Pain Management: PO Objective Exam Objective Patient is alert and oriented 3. Answering questions appropriately. Patient is sitting up in the bed and not in acute distress today. Dressing is intact, has very slight saturation of bleeding today. Calf is soft and nontender. Sensation and pulses intact, patient able to wiggle toes. Vital Signs and I/O Vital Sign - Last Date Time Temp Pulse Resp B/P Pulse Ox O2 Delivery O2 Flow Rate FiO2 03/17/17 09:35 36.7 63 16 166/73 96 Room Air 03/13/17 14:10 9 Intake and Output 03/16/17 03/16/17 03/17/17 Cumulative From/Thru 14:59 22:59 06:59 03/12/17 20:31 - 03/17/17 06:12 Intake Total 550 ml 1620 ml 0 ml 7957 ml Output Total 502 ml 150 ml 2428 ml Balance 550 ml 1118 ml -150 ml 5529 ml Intake Oral 800 ml 0 ml 3985 ml IV Total 250 ml 520 ml 3372 ml Packed Cells 300 ml 300 ml 600 ml Output Urine Total 500 ml 150 ml 2325 ml Urine/Stool Mix 2 ml 3 ml Estimated Blood Loss 100 ml # Voids 1 3 # Bowel Movements 0 1 Lab & Micro Results Laboratory Tests Test 03/17/17 08:24 White Blood Count 6.7th/mm3 (3.8-10.1) Red Blood Count 3.74mil/mm3 (3.90-5.20) Hemoglobin 11.6g/dL (12.0-15.6) Hematocrit 33.6% (35.0-46.0) Mean Corpuscular Volume 89.8fL (81-100) Mean Corpuscular Hemoglobin 31.0pg (27.0-35.0) Mean Corpuscular Hemoglobin Concent 34.5% (32.0-37.0) Red Cell Distribution Width 13.9% (12.3-15.4) Platelet Count 328bil/L (150-400) Neutrophils (%) (Auto) 74.4% (40-74) Lymphocytes (%) (Auto) 12.0% (14-46) Monocytes (%) (Auto) 11.0% (4-12) Eosinophils (%) (Auto) 2.1% (0-5) Basophils (%) (Auto) 0.2% (0-3) Sodium Level 141mEq/L (134-144) Potassium Level 3.8mEq/L (3.5-5.2) Chloride Level 103mEq/L (97-108) Carbon Dioxide Level 26mmol/L (18-29) Blood Urea Nitrogen 19mg/dL (8-27) Creatinine 0.56mg/dL (0.57-1.00) Estimat Glomerular Filtration Rate 147mL/min (>59) Glucose Level 105mg/dL (60-99) Calcium Level 8.7mg/dL (8.5-10.1) Magnesium Level 1.8mg/dL (1.6-2.6) Total Bilirubin 1.8mg/dL (0.0-1.2) Aspartate Amino Transf (AST/SGOT) 9U/L (0-50) Alanine Aminotransferase (ALT/SGPT) < 5U/L (0-32) Alkaline Phosphatase 74U/L (25-165) Total Protein 5.5g/dL (6.4-8.4) Albumin 3.2g/dL (3.4-5.0) Result Diagram: 03/17/1782303/17/17823 SURGICAL WOUND : Incision General Appearance: No Direct Observation Activity: Activity per PT, Ambulate with PT (weightbearing as tolerated on the right lower extremity using a walker) Catheters: None Assessment & Plan Impression Status post day #4 right hip IM nail. Patient's pain is well controlled, improving after transfusion. Problems: Plan Weight-bear as tolerated on the right lower extremity using front-wheeled walker. Continue formal physical therapy for mobility, gait and safety. Continue pain medication as needed with removal of IV pain medication as soon as able. DVT prophylaxis: Xarelto 10 mg daily 35 days postop for DVT prophylaxis. Dressing changed today. Patient should have dressing changes as needed if saturating in the SNF. Do not remove Steri-Strips. Keep covered while in facility for 2 weeks until appointment. Follow-up in 2 weeks that [facility] orthopedic clinic with Dr. Beka Peralta with staple removal and application of Steri-Strips and 2 view left femur x -rays on arrival. Follow up in 6 weeks at [facility] orthopedic clinic with Dr. Beka Peralta with right two-view femur x-rays on arrival. Orthopedics thanks hospitalist service for their help in the medical management of this patient. Anticipate discharge to senior living facility on postop day number 4, I believe to [facility] pending medical clearance. VTE Prophylaxis: SCDs (bilateral SCDs), RONAN Hose (bilateral thigh-high ROANN hose ), Other (Xarelto 10mg 35 days postop for DVT prophylaxis) Resuscitation Status: CPR: Attempt Resuscitation Byron Arnold PA-C March 17, 2017 12:31
--- NOTE | 2017-03-17 15:40 | NUR ---
pt transferred to [facility] per cabulance. Fairly good pain control with po meds, eating/drinking well. difficult 1 assist transfer to [facility]/C. Ortho signs OK, VSS report called to SNF
== END 2017-03-17 15:40 | DRG 481 ==
LOC: SED 20:21 → OSC 22:43
PROVIDERS: ADMIT Hospitalist; ATTEND Hospitalist
PROC: 0QS636Z Reposition Right Upper Femur with Intramedullary Internal Fixation Device, Percutaneous Approach (ICD-10-PCS; principal; 2017-03-13 11:15)
PROC: 30233N1 Transfusion of Nonautologous Red Blood Cells into Peripheral Vein, Percutaneous Approach (ICD-10-PCS; 2017-03-16)
DX: S72.141A Displaced intertrochanteric fracture of right femur, initial encounter for closed fracture (principal); D62 Acute posthemorrhagic anemia; G20 Parkinson's disease; Z79.82 Long term (current) use of aspirin; Z79.51 Long term (current) use of inhaled steroids; Z87.891 Personal history of nicotine dependence; G25.81 Restless legs syndrome; I95.1 Orthostatic hypotension; K21.9 Gastro-esophageal reflux disease without esophagitis; F41.8 Other specified anxiety disorders; J45.909 Unspecified asthma, uncomplicated; W18.30XA Fall on same level, unspecified, initial encounter; Y92.009 Unspecified place in unspecified non-institutional (private) residence as the place of occurrence of the external cause; Z86.73 Personal history of transient ischemic attack (TIA), and cerebral infarction without residual deficits